=== PATIENT | female | born 1980 | race Caucasian/White ===

== ENCOUNTER 2019-04-29 21:12 | Emergency (ER) | payer OTHER, SELFPAY ==
[2019-04-29] VITALS (16 sets, daily range): BP systolic 138–155; BP diastolic 86–117; PULSE 100; RESP 18–20; TEMP 36.8; O2SAT 94–98; BMI 36.2
--- NOTE | 2019-04-29 21:35 | ED_ITS ---
Entered by Jacklyn Wright, acting as scribe for Rosaura Mcbride MD Apr 29, 2019 21:12 HPI - Abdominal Pain General: Chief Complaint: Abdominal Pain Stated Complaint: ABD PAIN Time Seen by Provider: 04/29/19 21:34 Source: patient and RN notes reviewed Mode of arrival: ambulatory Limitations: no limitations History of Present Illness: HPI narrative: hurting worse this evening burning with urination for a little while , no fever, HTN, MD elicited complaint: abdominal pain Pertinent past history: past UTI Onset (ago): day(s) (2) Pain Consistency: constant Location: Suprapubic Severity: severe Quality: cramping Radiation: none Migration to: no migration Exacerbating factors: movement Relieving factors: nothing Context: history of similar episodes Associated Symptoms: Reports dysuria; Denies chills, diarrhea, fever(s), nausea and vomiting Review of Systems Const: Denies: fever, chills, body aches or change in appetite Eyes: Denies: blurry vision or eye discomfort ENMT: Denies: throat pain or dental pain Card: Denies: chest pain Resp: Denies: shortness of breath GI: Reports: abdominal pain; Denies: nausea, vomiting or diarrhea : Reports: painful urination Musc: Denies: neck pain or back pain Skin/Breast: Denies: rash Neuro: Denies: headache Psych: Denies: depression Tom/Lymph: Denies: easy bruising All/Imm: Denies: hives PFSH ED PFSH: Statuses (acute, chronic, etc) shown below reflect problem list status as previously entered and may not be historically accurate Social History Smoking and tobacco status: current every day smoker Physical Exam Const: COMMON NORMALS: no apparent distress, oriented x3 and healthy appearing HENMT: COMMON NORMALS: normocephalic and head/scalp atraumatic HEAD & SCALP: normocephalic and atraumatic Eye: COMMON NORMALS: PERRL and EOMs intact bilaterally PUPIL: Yes PERRL Neck/C-Spine: COMMON NORMALS: full ROM and supple Chest: COMMONS NORMALS: inspection of chest normal and palpation of chest normal Resp: COMMON NORMALS: normal respiratory effort, no retractions, no use of accessory muscles and clear to auscultation bilaterally AUSCULTATION: clear to auscultation bilaterally Cardio: COMMON NORMALS: regular rate, regular rhythm and no murmurs RATE: regular rate RHYTHM: regular rhythm GI: COMMON NORMALS: normal to inspection, nondistended, normoactive bowel sounds, soft to palpation, non-tender and no masses PALPATION: Yes soft OTHER: suprapubic tenderness Extremity: COMMON NORMALS: normal to inspection and full ROM Neuro: COMMON NORMALS: oriented x3, moves all extremities and no focal motor deficits Psych: COMMON NORMALS: mental status grossly normal, thought process normal and cooperative THOUGHT PROCESS: normal thought process Skin: COMMON NORMALS: no rashes or lesions noted and no wounds GENERAL SKIN EXAM: no rashes or lesions noted Course Vital Signs: Vital signs: Vital Signs Temperature 98.3 F 04/29/19 21:20 Pulse Rate 100 04/29/19 21:20 Respiratory Rate 18 04/29/19 23:34 Blood Pressure 149/96 04/29/19 23:00 Pulse Oximetry 94 04/29/19 22:30 MDM - Abdominal Pain MDM Narrative: Medical decision making narrative: Patient presents with abdominal pain. Her CT scan here showed ovarian cyst possibly causing her pain. She has no signs of UTI. Her white count here is normal. She is stable for discharge and is to follow-up with her primary care doctor in 3 to 5 days return if worsening. Lab Data: Labs: Lab Results 04/29/19 04/29/19 04/29/19 Range/Units 21:31 22:27 22:27 WBC 13.1 H (4.0-10.0) 10^3/ uL RBC 4.81 (4.1-5.3) 10^6/u L Hgb 14.1 (11.5-15.3) g/dL Hct 41.5 (37.0-47.0) % MCV 86.3 (81-99) fL MCH 29.3 (28.0-34.0) pg MCHC 34.0 (30.0-36.0) g/dL RDW 12.6 (12.1-15.1) % Plt Count 253 (130-400) 10^3/c mm MPV 10.1 (7.4-10.4) fL Neut % (Auto) 63.6 % Lymph % (Auto) 26.8 % [place] % (Auto) 6.4 % Eos % (Auto) 2.5 % Baso % (Auto) 0.5 % Neut # (Auto) 8.3 H (1.8-7.7) 10^3/u L Lymph # (Auto) 3.5 (0.8-4.8) 10^3/u L [place] # (Auto) 0.8 (0.2-0.9) 10^3/u L Eos # (Auto) 0.3 (0.0-0.8) 10^3/u L Baso # (Auto) 0.1 (0.0-0.1) 10^3/u L Nucleated RBC % (a uto) 0 % Nucleated RBCs # 0.0 /100WBC Sodium 137 (136-145) mmol/L Potassium 3.9 (3.5-5.1) mmol/L Chloride 101 (98-107) mmol/L Carbon Dioxide 25 (22-29) mmol/L Anion Gap 14.9 (5-19) BUN 12 (6-20) mg/dL Creatinine 0.8 (0.5-0.9) mg/dL GFR Calculation 79.9 L (90-130) mL/min Glucose 105 (74-109) mg/dL Calcium 9.7 (8.5-10.5) mg/dL Total Bilirubin 0.3 (0.15-1.2) mg/dL AST 14 (0-32) U/L ALT 12 (0-33) U/L Alkaline Phosphata se 87 (35-105) IU/L Total Protein 7.4 (6.6-8.7) g/dL Albumin 4.3 (3.5-5.2) g/dL Globulin 3.1 (1.3-4.6) g/dL Lipase 15 (13-60) U/L Urine Color Straw (Yellow) Urine Appearance Clear (CLEAR) Urine pH 7 (5-7) Ur Specific Gravit y 1.005 (1.005-1.030) Urine Protein Neg (Negative) Urine Glucose (UA) Norm (Normal) Urine Ketones Negative (Negative) Urine Occult Blood 2+ H (Negative) Urine Nitrate Negative (Negative) Urine Bilirubin Neg (NEGATIVE) Urine Urobilinogen Norm (Negative) mg/dL Ur Leukocyte Leann ase Negative (Negative) Urine RBC 0-4 H (0-2) /hpf Urine WBC 0-4 H (0-5) /hpf Ur Squamous Epith Cells 0-4 H (0-5) Urine Bacteria Trace (NONE) Imaging Data ^: CT Abd/Pel: Radiologist's impression: Ordering Provider/Ordering MD: Rosaura Mcbride MD Date of Service: 04/29/19 Procedure(s): CT abdomen pelvis w con* [id number] Accession Number(s): [id number] Report Number: [id number] PROCEDURE INFORMATION: Exam: CT Abdomen And Pelvis With Contrast Exam date and time: 04/29/2019 11:31 PM Age: 38 years old Clinical indication: Abdominal pain; Other: Groin; Prior surgery; Surgery date: 6+ months; Additional info: Abd pain TECHNIQUE: Imaging protocol: Computed tomography of the abdomen and pelvis with intravenous contrast. Total DLP: 1408.62 mGy-cm Radiation optimization: All CT scans at this facility use at least one of these dose optimization techniques: automated exposure control; mA and/or kV adjustment per patient size (includes targeted exams where dose is matched to clinical indication); or iterative reconstruction. Contrast material: OMNIPAQUE 300; Contrast volume: 95 ml; Contrast route: IV; COMPARISON: US Pelvis Female [id number] 07/05/2017 8:36 AM FINDINGS: Mediastinum: A small hiatal hernia is present. Liver: Unremarkable.No mass. Gallbladder and bile ducts: Normal. No calcified stones. No ductal dilation. Pancreas: Normal. No ductal dilation. Spleen: Calcified granulomas are noted in the spleen. A few calcified granulomas are noted in the right lung base. The spleen is otherwise unremarkable. Adrenals: Normal. No mass. Kidneys and ureters: There multiple tiny renal cortical hypodensities that are too small to characterize but statistically are consistent with cysts. There is a 1.2 cm fluid density cyst upper pole right kidney. There is no evidence of hydronephrosis. There is no evidence of renal calcifications. Stomach and bowel: Unremarkable. No obstruction. No mucosal thickening. Appendix: No evidence of appendicitis. Intraperitoneal space: Unremarkable. No free air. No significant fluid collection. Vasculature: Unremarkable.No abdominal aortic aneurysm. Lymph nodes: Unremarkable.No enlarged lymph nodes. Bladder: There is nonspecific bladder wall thickening. This may be related to incomplete distention. Reproductive: Uterus is unremarkable. The left ovary is not definitely visualized. There is a 1 cm right ovarian cyst. Bones/joints: Unremarkable. No acute fracture. Soft tissues: There is a fat-containing umbilical hernia. CT/CT abdomen pelvis w con* [id number] IMPRESSION: 1. There is a 1.2 cm fluid density cyst upper pole right kidney. No follow-up is necessary. 2. Uterus is unremarkable. The left ovary is not definitely visualized. There is a 1 cm right ovarian cyst. No follow-up is necessary. 3. No acute abnormality or inflammatory changes. COMMENT: Discharge Plan Discharge Patient Disposition: Home, Self-Care Clinical Impression: Ovarian cyst Qualifiers: Laterality: left Qualified Code(s): N83.202 - Unspecified ovarian cyst, left side Condition: Stable Prescriptions: New Counce 5-325 mg tablet 1 tab PO Q6H PRN (Reason: pain) Qty: 14 RF: 0 Discharge Orders: Discharge Order (Routine); Ordered 04/30/19 Ordered By: Rosaura Mcbride Referrals: Oksana Shelley MD [Primary Care Provider] - 4-7 days Discharge Diet: Advance as tolerated Discharge Activity: Resume usual activity Patient Instructions: Abdominal Pain (ED) Coding Level of Care Code ED Body Service Team Member for Chg Fwd The documentation recorded by the Kyle mtz Valerie R, accurately reflects the service I personally performed and the decisions made by Rae cristina Korby, MD Apr 29, 2019 21:12
[2019-04-29 21:51] LABS: Add Urine Microscopic? YES; Bilirubin Urine Neg (NEGATIVE); Blood Urine 2+ (Negative); Glucose Urine UA Norm (Normal); Ketones Urine Negative (Negative); Leukocyte Esterase Urine Negative (Negative); Nitrate Urine Negative (Negative); Protein Urine Neg (Negative); Specific Gravity, Urine 1.005 (1.005-1.030); Urine Appearance Clear (CLEAR); Urine Color Straw (Yellow); Urobilinogen Urine Norm (Negative); pH Urine 7 (5-7)
[2019-04-29 21:52] LABS: Add Urine Culture? No; Bacteria Urine TRACE; RBC Urine 0-4 /hpf (0-2); Squamous Epithelial Cell Urine 0-4 (0-5); WBC Urine 0-4 /hpf (0-5)
[2019-04-29] MEDS: morphine 4 mg/mL SDV 1 mL IVP ×2 (22:19→23:34)
[2019-04-29] MEDS: ondansetron 2 mg/ML SDV 2 mL 4 MG IVP (22:20)
[2019-04-29 22:35] LABS: Basophils # 0.1 10^3/uL (0.0-0.1); Basophils % 0.5 %; Eosinophils # 0.3 10^3/uL (0.0-0.8); Eosinophils % 2.5 %; Hematocrit 41.5 % (37.0-47.0); Hemoglobin 14.1 g/dL (11.5-15.3); Lymphocytes # 3.5 10^3/uL (0.8-4.8); Lymphocytes % 26.8 %; Mean Corpuscular Hemoglobin 29.3 pg (28.0-34.0); Mean Corpuscular Volume 86.3 fL (81-99); Mean Platelet Volume 10.1 fL (7.4-10.4); Monocytes # 0.8 10^3/uL (0.2-0.9); Monocytes % 6.4 %; Neutrophils # 8.3 10^3/uL (1.8-7.7); Neutrophils % 63.6 %; Nucleated Red Blood Cells % 0 %; Platelet Count 253 10^3/cmm (130-400); Red Blood Count 4.81 10^6/uL (4.1-5.3); Red Cell Distribution Width 12.6 % (12.1-15.1); White Blood Count 13.1 10^3/uL (4.0-10.0)
[2019-04-29 22:53] LABS: Alanine Aminotransferase 12 U/L (0-33); Albumin Level 4.3 g/dL (3.5-5.2); Alkaline Phosphatase 87 IU/L (35-105); Anion Gap 14.9 (5-19); Aspartate Amino Transferase 14 U/L (0-32); Blood Urea Nitrogen 12 mg/dL (6-20); Calcium 9.7 mg/dL (8.5-10.5); Carbon Dioxide 25 mmol/L (22-29); Chloride 101 mmol/L (98-107); Globulin 3.1 g/dL (1.3-4.6); Glomerular Filtration Rate 79.9 mL/min (90-130); Glucose 105 mg/dL (74-109); Lipase 15 U/L (13-60); Potassium 3.9 mmol/L (3.5-5.1); Sodium 137 mmol/L (136-145); Total Bilirubin 0.3 mg/dL (0.15-1.2); Total Protein 7.4 g/dL (6.6-8.7)
--- NOTE | 2019-04-29 23:15 | CTR_ITS ---
PROCEDURE INFORMATION: Exam: CT Abdomen And Pelvis With Contrast Exam date and time: 04/29/2019 11:31 PM Age: 38 years old Clinical indication: Abdominal pain; Other: Groin; Prior surgery; Surgery date: 6+ months; Additional info: Abd pain TECHNIQUE: Imaging protocol: Computed tomography of the abdomen and pelvis with intravenous contrast. Total DLP: 1408.62 mGy-cm Radiation optimization: All CT scans at this facility use at least one of these dose optimization techniques: automated exposure control; mA and/or kV adjustment per patient size (includes targeted exams where dose is matched to clinical indication); or iterative reconstruction. Contrast material: OMNIPAQUE 300; Contrast volume: 95 ml; Contrast route: IV; COMPARISON: US Pelvis Female [id number] 07/05/2017 8:36 AM FINDINGS: Mediastinum: A small hiatal hernia is present. Liver: Unremarkable.No mass. Gallbladder and bile ducts: Normal. No calcified stones. No ductal dilation. Pancreas: Normal. No ductal dilation. Spleen: Calcified granulomas are noted in the spleen. A few calcified granulomas are noted in the right lung base. The spleen is otherwise unremarkable. Adrenals: Normal. No mass. Kidneys and ureters: There multiple tiny renal cortical hypodensities that are too small to characterize but statistically are consistent with cysts. There is a 1.2 cm fluid density cyst upper pole right kidney. There is no evidence of hydronephrosis. There is no evidence of renal calcifications. Stomach and bowel: Unremarkable. No obstruction. No mucosal thickening. Appendix: No evidence of appendicitis. Intraperitoneal space: Unremarkable. No free air. No significant fluid collection. Vasculature: Unremarkable.No abdominal aortic aneurysm. Lymph nodes: Unremarkable.No enlarged lymph nodes. Bladder: There is nonspecific bladder wall thickening. This may be related to incomplete distention. Reproductive: Uterus is unremarkable. The left ovary is not definitely visualized. There is a 1 cm right ovarian cyst. Bones/joints: Unremarkable. No acute fracture. Soft tissues: There is a fat-containing umbilical hernia. CT/CT abdomen pelvis w con* [id number] IMPRESSION: 1. There is a 1.2 cm fluid density cyst upper pole right kidney. No follow-up is necessary. 2. Uterus is unremarkable. The left ovary is not definitely visualized. There is a 1 cm right ovarian cyst. No follow-up is necessary. 3. No acute abnormality or inflammatory changes. COMMENT: Consistent with the [employer]'s Incidental Findings Committee white paper (J Am Guillermo Radiol 2018): Any incidental cystic renal lesion classified in this report as too small to characterize or simple appearing is likely a benign cyst. No follow-up imaging is recommended for these lesions per consensus recommendations based on imaging criteria. Radiation Dose CTDIVOL = (mGy): DLP = 1408.62 (mGy-cm)
[2019-04-30] VITALS: BP 140/86
[2019-04-30] MEDS: iohexol 300 mg/mL 100 mL Btl IV (00:02)
[2019-04-30 00:30] VITALS: BP 114/71; O2SAT 96
[2019-04-30 01:00] VITALS: BP 121/73; O2SAT 94
[2019-04-30 01:30] VITALS: BP 121/73
[2019-04-30 01:56] VITALS: BP 134/87; PULSE 80; RESP 18; O2SAT 95
== END 2019-04-30 01:57 | disposition home or self-care (01) ==
PROVIDERS: Emergency Provider Emergency Medicine; Family Provider Family Medicine; PCP Family Medicine
DX: N83.201 Unspecified ovarian cyst, right side (principal); F17.200 Nicotine dependence, unspecified, uncomplicated; Z87.440 Personal history of urinary (tract) infections
CPT/HCPCS: 36415; 74177; 80053; 81001; 83690; 85025; 96374; 96375; 96376; 99283; J2270; J2405; Q9967

== ENCOUNTER 2020-01-15 14:37 | Outpatient (CLI) | payer OTHER, SELFPAY ==
--- NOTE | 2020-01-15 14:43 | MM_ITS ---
WS: [id number] BILATERAL DIGITAL SCREENING MAMMOGRAPHY WITH CAD CLINICAL INFORMATION: SCREENING HISTORY: Screening mammogram. Bilateral breast soreness COMPARISON: June 14, 2018 TECHNIQUE: Bilateral CC and MLO views. FINDINGS: Scattered fibroglandular densities bilaterally. No suspicious focal mass, asymmetry, calcifications, or architectural distortion. No evidence of malignancy. Several stable intramammary lymph nodes right breast MM/[place] [id number] IMPRESSION: BI-RADS: 2-Benign FOLLOW UP: 1 Year Follow-up Recommend return to annual screening mammography.
== END 2020-01-15 14:38 | disposition home or self-care (01) ==
LOC: RADSHAW 14:41
PROVIDERS: PCP Family Medicine; Visit Provider Family Medicine
DX: Z12.31 Encounter for screening mammogram for malignant neoplasm of breast (principal)
CPT/HCPCS: 77067

== ENCOUNTER → 2020-02-06 10:48 | Outpatient (BNVA) | payer OTHER, SELFPAY | PROVIDERS: PCP Family Medicine; Visit Provider Surgery | DX: Z11.59 Encounter for screening for other viral diseases (principal); K62.5 Hemorrhage of anus and rectum; K64.9 Unspecified hemorrhoids | CPT/HCPCS: 87635 ==

== ENCOUNTER 2020-02-11 05:40 | Day surgery (SDC) | payer OTHER, SELFPAY ==
[2020-02-07 11:49] VITALS: BMI 33.9
[2020-02-11] VITALS (13 sets, daily range): BP systolic 104–137; BP diastolic 68–100; PULSE 64–121; RESP 16–24; TEMP 36.6–37.3; O2SAT 92–99
[2020-02-11] MEDS: sodium chloride 0.9% 1,000 ML 30 ML IV (06:36)
--- NOTE | 2020-02-11 06:42 | W.PM.OPSUD ---
Surgery/Procedure H&P Update DATE OF PROCEDURE: February 11, 2020 DATE H&P PERFORMED: 01/23/20 H&P UPDATE INFORMATION: I have reviewed H&P completed within last 30 days, I have examined patient prior to procedure and No changes to prior documentation PREOP DIAGNOSIS: Symptomatic hemorrhoid PRIMARY INDICATION FOR PROCEDURE: The same PLANNED PROCEDURE: Operation Date: 02/11/20 07:00 Proposed Procedures p Colonoscopy [id number] K62.5 K64.9(Not Applicable) - Osorio Ingram MD s Exam Under Anesthesia(Not Applicable) - Osorio Ingram MD s Hemorroidectomy(Not Applicable) - Osorio Ingram MD
--- NOTE | 2020-02-11 06:48 | P.ANESASSM_ITS ---
Pre-Anesthetic Assessment Pre-Anesthetic Assessment: Height/Weight: Height 1.65 m Weight 92.533 kg Temp Pulse Resp BP Pulse Ox 99.2 F 81 18 135/100 96 02/11/20 06:08 02/11/20 06:08 02/11/20 06:08 02/11/20 06:08 02/11/20 06:08 Preop Diagnosis: Symptomatic hemorrhoid Proposed Procedure: Operation Date: 02/11/20 07:00 Proposed Procedures p Colonoscopy [id number] K62.5 K64.9(Not Applicable) - Osorio Ingram MD s Exam Under Anesthesia(Not Applicable) - Osorio Ingram MD s Hemorroidectomy(Not Applicable) - Osorio Ingram MD Familial anesthetic complications: PONV Was Beta Shavon taken within 24 hours: N/A Last intake: Intake Last Liquid Date 02/10/20 Last Liquid Time 00:00 Last Solid Date 02/09/20 Social: Social History: Tobacco and No alcohol Exam: Pre-Anes Outpt Exam: alert, oriented x 3, clear to auscultation bilaterally and regular rate & rhythm Airway: Cervical ROM: WNL MP: 3 Dentition: False CV/HEM: CV/HEM: HTN and Palp Metabolic: Metabolic: Thyroid Anesthetic Plan: ASA status: 2 Anesthesia: General Risk of > 500 ml blood loss (7ml/kg in children): No Meds/Allergies Current Medications: Current Medications Generic Name Dose Route Start Last Admin Trade Name Freq PRN Reason Stop Dose Admin Sodium Chloride 1,000 mls @ 30 ml s/hr 02/11/20 06:00 02/11/20 06:36 Sodium Chloride 0.9% IV 02/12/20 05:59 30 mls/hr .Q24H NAKUL Administration PFSH Anesthesia PFSH: Medical History History of Graves' disease Hypertension Hypothyroidism Migraine headache Surgical History H/O section x 3. H/O laparoscopy (~2010) S/P endometrial ablation (03/27/10) Family History Mother Hypertension Social History Smoking and tobacco status: current every day smoker cigarettes Packs smoked pe r day: 1 Alcohol intake: never Data Anesthesia Cardiac Studies: No Data to Display
[2020-02-11] MEDS: scopolamine 1.5 Patch 1 PATCH TRANSDERMA (07:00)
[2020-02-11] MEDS: piperacillin-tazobactam 3.375 GM in sodium chloride 0.9% (plus) 50 ML IV (07:04)
[2020-02-11 07:11] LABS: OR HCG Qualitative Urine Negative (Negative)
--- NOTE | 2020-02-11 08:13 | P.OP_ITS ---
Operative Report Date of procedure: February 11, 2020 Pre-op Diagnosis: Symptomatic hemorrhoid/bleeding per rectum Post-op Diagnosis: Normal colonoscopy and symptomatic right and left lower lateral hemorrhoids Procedure Done: Colonoscopy Examination under anesthesia with hemorrhoidectomy Specimens removed/disposition: Right and left lower lateral hemorrhoids Surgeon: Osorio Ingram Drop Count Associate: cable splicing technician Raymond Circulating nurse Dilcia Anesthesia: General ([facility] lead psychologist Nichole) Estimated blood loss (mL): 10 Condition: stable Disposition: same day Brief History: This is a pleasant 39 years old female patient referred to my office with history of symptomatic hemorrhoids over many years just getting worse. Patient reports that she had history of bleeding per rectum intermittently. She reports no history of colon cancer and she continues to have itching and burning whenever she goes to the restroom. Patient was offered surgery at some point at [facility] but she did not proceed. Never had a colonoscopy before. After thorough history physical examination and reviewing the chart I did family counselor the patient for colonoscopy with examination under anesthesia and possible hemorrhoidectomy. Patient agreed to proceed and informed consent per chart. Procedure: Patient was identified in the holding area, was taken to the OR placed first in supine position,IV antibiotics were given with induction time- out was done verifying the patient's name, date of , and procedure, all were in agreement. LMA was placed by the anesthesia provider, patient was placed in left lateral position.All pressure points were padded. Perianal examination showed right and left lower lateral hemorrhoids Following that a digital rectal examination was done showed no masses, the colonoscope was then introduced via the anus under direct visualization, all the way to the cecum, prep of the colon was appropriate, there were no polyps identified or masses or diverticular disease or strictures, the scope was then retrieved back ,time for withdrawal exceeded 6 minutes, gas was deflated on the way out. Retroflex was done at the end showing normal findings. Prep and drape of the perineum was done under the usual sterile technique Injection of Exparel 15 mL each side, guiding point was the ischial spine on each side located by the examining finger A lubricated self-retaining proctoscope was inserted, patient was found to have left and right lower lateral hemorrhoids mostly external. Started by introducing a wet sponge to prevent any residual colon prep from contaminating the site of the excision. Started by the left lower lateral hemorrhoid 2 hemostats were applied followed by energy device Voyant was used for excision of the hemorrhoid then 2-0 chromic catgut were used for hemostasis as a continuous suture. Attention now was deviated towards the right lower lateral hemorrhoid and same technique was used by using energy device then continuous 2-0 chromic suture was used.Copious irrigation and appropriate hemostasis was achieved.Specimens were passed to the circulating nurse. A piece of Surgicel /piece of Xeroform impregnated with lidocaine 2% jelly was placed in the anal canal, attached to 2-0 silk suture, to help retrieving it by the patient later on ABDs were applied followed by surgical pants Patient was repositioned to supine position, counts of instruments,needles and sponges were completed at the end of the procedure Patient was taken to the recovery area in stable condition I was present for the whole entire procedure Future colonoscopy is recommended to be done in 10 years for screening purposes
[2020-02-11] MEDS: dexamethasone 4 mg/mL INJ 8 MG IVP (08:43)
[2020-02-11] MEDS: fentaNYL 50 mcg/mL INJ 2mL IVP (08:48)
[2020-02-11] MEDS: sodium chloride 0.9% 1,000 ML 100 ML IV (09:16)
--- NOTE | 2020-02-11 09:17 | SUR.PHASEI ---
0822 PT TO PACU RESTLESS TRYING TO GET UP MOVING ARMS AND LEGS, PT AWAKE BUT CONFUSED PT REORIENTED REPEATEDLY 0824CRNA AT BEDSIDE ORDERS FOR VERSED NOW, 0825 PT C/O OF UNABLE TO BREATH UP IN BED TECHNICAL PLANNER AT BEDSIDE PT SPASM, PT NOW BAGGED WITH 12L O2 SEE SUGAMADEX GIVEN BY TECHNICAL PLANNER 0830 PT AWAKE NOW WITH RESP EVEN AND UNLABORED ON 8L MASK, PT TALKATIVE C/O OF PAIN TO RECTUM AND NEED TO GO TO BR. [facility] ORDERED BY DR BARAJAS SEE MEDS GIVEN
--- NOTE | 2020-02-11 09:24 | SUR.PHASEI ---
0910 PT VERY ALERT TALKATIVE WANTS SOMETHING TO DRINK SATS 96% OCC DROPS TO 90 PT ENCOURAGED TO COUGH AND SATS UP TO 96% PT TO OPS HANDOFF AT BEDSIDE.
[2020-02-11] MEDS: ibuprofen 200 mg Tablet 400 MG PO (09:43)
--- NOTE | 2020-02-11 14:32 | ANE.PACU2 ---
Inpatient post-anesthesia follow up: Airway intact: Yes Vital signs: Temperature 97.9 F Pulse Rate 64 Respiratory Rate 16 Blood Pressure 107/68 Pulse Oximetry 93 Oxygen Delivery Me thod Room Air Oxygen Flow Rate 8 Fraction of Inspir ed Oxygen Hydration adequate: Yes Nausea and vomiting: No Pain level: 2 Mental status: Baseline
== END 2020-02-11 10:47 | disposition home or self-care (01) ==
PROVIDERS: Anesthesiology; PCP Family Medicine; Visit Provider Surgery
PROC: 0DJD8ZZ Inspection of Lower Intestinal Tract, Via Natural or Artificial Opening Endoscopic (ICD-10-PCS; CPT 45378; principal; 2020-02-11 07:00)
PROC: (CPT 45378; 2020-02-11 07:00)
PROC: (CPT 45378; 2020-02-11 07:00)
DX: K64.4 Residual hemorrhoidal skin tags (principal); K62.5 Hemorrhage of anus and rectum; Z12.11 Encounter for screening for malignant neoplasm of colon; I10 Essential (primary) hypertension; E03.9 Hypothyroidism, unspecified; F17.210 Nicotine dependence, cigarettes, uncomplicated
CPT/HCPCS: 45378; 46250; 12345; 81025; 84703; 88304; C9290; J0131; J1100; J2250; J2370; J2405; J2543; J2704; J2710; J3010; J3490; J7030

== ENCOUNTER → 2020-02-26 15:06 | Outpatient (BNVA) | payer OTHER, SELFPAY | PROVIDERS: PCP Family Medicine; Visit Provider Nurse Practitioner Family | DX: Z11.59 Encounter for screening for other viral diseases (principal); Z20.828 Contact with and (suspected) exposure to other viral communicable diseases; J06.9 Acute upper respiratory infection, unspecified | CPT/HCPCS: 87635 ==

== ENCOUNTER 2020-12-06 09:47 | Emergency (ER) | payer OTHER, SELFPAY ==
[2020-12-06 09:59] VITALS: BP 154/98; PULSE 92; RESP 18; TEMP 36.8; O2SAT 96; BMI 35.5
[2020-12-06 10:13] VITALS: BP 154/98; PULSE 98; RESP 18; O2SAT 98
--- NOTE | 2020-12-06 10:30 | XRR_ITS ---
PROCEDURE INFORMATION: Exam: XR Chest Exam date and time: 12/06/2020 10:30 AM Age: 40 years old Clinical indication: Cough TECHNIQUE: Imaging protocol: XR of the chest. Views: 1 view. COMPARISON: CR Chest 2 views* [id number] 09/14/2018 1:25 PM FINDINGS: Lungs: No pulmonary consolidation. There is a nodular density overlying the right upper lobe that measures 0.9 cm. Pleural spaces: No pleural effusion.; No pneumothorax. Heart/Mediastinum: The cardiac silhouette is unchanged. No gross evidence of pneumomediastinum. Bones/joints: No gross fracture. XR/XR chest 1V portable [id number] IMPRESSION: Nodular density in the right upper lobe measuring 0.[address] chest to better characterize.
[2020-12-06 11:47] VITALS: BP 131/88; PULSE 84; RESP 18; O2SAT 92
[2020-12-06 12:00] LABS: Basophils # 0.1 10^3/uL (0.0-0.1); Basophils % 0.8 %; Eosinophils % 0.5 %; Hematocrit 46.4 % (37.0-47.0); Hemoglobin 15.5 g/dL (11.5-15.3); Lymphocytes # 2.1 10^3/uL (0.8-4.8); Lymphocytes % 27.1 %; Mean Corpuscular HGB Conc 33.4 g/dL (30.0-36.0); Mean Corpuscular Hemoglobin 29.8 pg (28.0-34.0); Mean Corpuscular Volume 89.2 fl (81-99); Mean Platelet Volume 10.2 fL (7.4-10.4); Monocytes # 0.6 10^3/uL (0.2-0.9); Monocytes % 7.1 %; Neutrophils # 5.08 10^3/uL (1.8-7.7); Neutrophils % 64.1 %; Nucleated Red Blood Cells % 0 %; Platelet Count 246 10^3/cmm (130-400); Red Cell Distribution Width 13.5 % (12.1-15.1); White Blood Count 7.9 10^3/uL (4.0-10.0)
--- NOTE | 2020-12-06 12:18 | W.ED.GENADLT ---
HPI - General Adult General: Chief complaint: General Medical Stated complaint: congestion x 1 mo,swollen throat, thyroid problems Time Seen by Provider: 12/06/20 09:54 History of Present Illness: HPI narrative: This patient is a 40 year old female with cough, sore throat, sinus and ear congestion for a month. She has been to her PCP and has been on 2 courses of augmentin and is now on levaquin. She felt better on the Augmentin but her symptoms returned. She had a neg COVID test but has not had an xray. She has been taking mucinex for symptoms. She has not taken a decongestant. She came in today due to her persistent symptoms. Onset (ago): month(s) (1) Associated symptoms: Reports cough and malaise; Deny chest pain, dyspnea, fevers/chills, headache(s), nausea, rash or vomiting Treatments prior to arrival: NSAID and cold therapy Review of Systems General: Reports: 10 or more systems reviewed and unremarkable except in HPI and below Const: Reports: malaise Eyes: Denies: change in vision ENMT: Reports: throat pain, nasal congestion and sinus pain; Denies: odynophagia Card: Denies: chest pain Resp: Reports: productive cough and chest congestion; Denies: dyspnea or non-productive cough GI: Denies: abdominal pain, nausea or vomiting : Denies: flank pain or difficulty voiding Musc: Reports: other (myalgias); Denies: neck pain or back pain Skin/Breast: Denies: rash Neuro: Denies: headache(s), numbness in extremities or weakness in extremities Tom/Lymph: Denies: easy bruising or easy bleeding PFS ED PFSH: Medical History History of Graves' disease Hypertension Hypothyroidism Migraine headache Smoking Surgical History H/O section x 3. H/O laparoscopy (~2010) S/P endometrial ablation (03/27/10) Family History Mother Hypertension Social History Smoking and tobacco status: current every day smoker cigarettes Packs smoked per day: 1 Alcohol intake: never Physical Exam Const: COMMON NORMALS: no acute distress, patient oriented x3, no limitations and alert GENERAL APPEARANCE: cooperative and comfortable HENMT: COMMON NORMALS: Normal external nose present HEAD & SCALP: normal to inspection FACE & SINUS: normal facial exam NOSE: Normal external nose present TYMPANIC MEMBRANE: other (no erythema, fluid present) MOUTH: Normal oral and palatal mucosa present, lip normal and tongue normal Eye: GENERAL EYE: appearance normal, both eyes and all related structures Neck/C-Spine: COMMON NORMALS: supple, no meningeal signs and no JVD Chest: COMMONS NORMALS: normal inspection of the chest Resp: COMMON NORMALS: normal respiratory effort, No use of accessory muscles and clear to auscultation bilaterally AUSCULTATION: clear to auscultation bilaterally Cardio: COMMON NORMALS: no JVD, regular rate, regular rhythm and No murmurs present (Cardio) RATE: regular rate RHYTHM: regular rhythm GI: COMMON NORMALS: Normal to inspection, nondistended, normoactive bowel sounds present, Soft to palpation and non-tender INSPECTION: Yes normal to inspection AUSCULTATION: Yes normoactive bowel sounds PALPATION: Yes Soft to palpation Back/Pelvis: COMMON NORMALS: thoracic and lumbar spine normal to inspection Extremity: COMMON NORMALS: normal to inspection Neuro: COMMON NORMALS: patient oriented x3, moves all extremities, no focal motor deficits and no sensory deficits noted SENSORIUM/ORIENTATION: Yes alert MENINGEAL SIGNS: Yes no meningeal signs Psych: COMMON NORMALS: mental status grossly normal, cooperative and normal affect Skin: COMMON NORMALS: no rashes or lesions noted and turgor normal GENERAL SKIN EXAM: no rashes or lesions noted and turgor normal Course ED course: CXR neg for pneumonia. Labs normal. She will continue her antibiotic - she is on flonase and will continue that. We also discussed use of a decongestant orally or afrin nasal spray to help with her sinus congestion and ear pain. She will also continue tylenol for her body aches. Continue outpatient follow up. Vital Signs: Vital signs: Vital Signs Temperature 98.3 F 12/06/20 09:59 Pulse Rate 88 12/06/20 12:36 Respiratory Rate 18 12/06/20 12:36 Blood Pressure 140/89 12/06/20 12:36 Pulse Oximetry 95 12/06/20 12:36 MDM - General Adult MDM Narrative: Medical decision making narrative: pneumonia, bronchitis, viral URI Lab Data: Labs: Lab Results 12/06/20 12/06/20 Range/Units 11:50 11:50 WBC 7.9 (4.0-10.0) 10^3/ uL RBC 5.20 (4.1-5.3) 10^6/u L Hgb 15.5 H (11.5-15.3) g/dL Hct 46.4 (37.0-47.0) % MCV 89.2 (81-99) fl MCH 29.8 (28.0-34.0) pg MCHC 33.4 (30.0-36.0) g/dL RDW 13.5 (12.1-15.1) % Plt Count 246 (130-400) 10^3/c mm MPV 10.2 (7.4-10.4) fL Neut % (Auto) 64.1 % Lymph % (Auto) 27.1 % [place] % (Auto) 7.1 % Eos % (Auto) 0.5 % Baso % (Auto) 0.8 % Neut # (Auto) 5.08 (1.8-7.7) 10^3/u L Lymph # (Auto) 2.1 (0.8-4.8) 10^3/u L [place] # (Auto) 0.6 (0.2-0.9) 10^3/u L Eos # (Auto) 0.0 (0.0-0.8) 10^3/u L Baso # (Auto) 0.1 (0.0-0.1) 10^3/u L Nucleated RBC % (a uto) 0 % Nucleated RBCs # 0.0 /100WBC Sodium 140 (136-145) mmol/L Potassium 4.2 (3.5-5.1) mmol/L Chloride 105 (98-107) mmol/L Carbon Dioxide 27 (22-29) mmol/L Anion Gap 12.2 (5-19) BUN 5 L (6-20) mg/dL Creatinine 0.5 (0.5-0.9) mg/dL GFR Calculation 136.0 H (90-130) mL/min Glucose 111 (65-115) mg/dL Calculated Osmolal ity 288 (285-295) mOsm/k g Calcium 8.8 (8.5-10.5) mg/dL Total Bilirubin 0.2 (0.15-1.2) mg/dL AST 12 (0-32) U/L ALT 11 (0-33) U/L Alkaline Phosphata se 81 (35-105) IU/L Total Protein 7.2 (6.6-8.7) g/dL Albumin 4.2 (3.5-5.2) g/dL Globulin 3.0 (1.3-4.6) g/dL Discharge Plan Discharge Patient Disposition: Home Clinical Impression: Bronchitis, Acute serous otitis media of both ears Condition: Stable Prescriptions: New fluticasone propionate 50 mcg/actuation spray,suspension 1 spray intranasal BID PRN (Reason: nasal congestion) Qty: 16 RF: 0 No Action fluticasone propion-salmeterol [Advair Diskus] 250-50 mcg/dose blister with device 1 inh inhalation BID Qty: 60 RF: 1 prednisone 10 mg tablet 30 mg PO DAILY 5 Days Qty: 15 RF: 0 doxycycline hyclate 100 mg tablet 100 mg PO BID 10 Days Qty: 20 RF: 0 lisinopril 20 mg tablet 20 mg PO DAILY RF: 0 albuterol sulfate [Proventil HFA] 90 mcg/actuation HFA aerosol inhaler 2 puff INHALATION Q6H PRN (Reason: sob) RF: 0 ascorbic acid (vitamin C) 2,000 mg Tablet Extended Release 2,000 mg PO DAILY RF: 0 fluconazole 150 mg tablet RF: 0 zinc 50 mg Tablet 50 mg PO DAILY RF: 0 Vitamin D3 100 mcg (4,000 unit) Capsule 100 mcg PO DAILY RF: 0 [place] 5-325 mg tablet 1 tab PO Q6H PRN (Reason: pain) Qty: 28 RF: 0 Discharge Orders: Discharge ED (Routine); Ordered 12/06/20 Ordered By: Pati Wheatley Referrals: Oksana Shelley MD [Primary Care Provider] - Discharge Diet: Usual diet Discharge Activity: Increase activity as tolerated Patient Instructions: Acute Bronchitis (ED), Opioid Safety Activity Restrictions/Additional Instructions: Continue regular medications - follow up with Dr. Shelley if not improving. You can use the fluticasone nasal spray to help with congestion in your nose and ears. You may also use afrin over the counter but only for 3 days in a row. Coding Level of Care Code ED Folder Tier for Chg Fwd Exam Comprehensive
[2020-12-06 12:22] LABS: Alanine Aminotransferase 11 U/L (0-33); Albumin Level 4.2 g/dL (3.5-5.2); Alkaline Phosphatase 81 IU/L (35-105); Anion Gap 12.2 (5-19); Aspartate Amino Transferase 12 U/L (0-32); Blood Urea Nitrogen 5 mg/dL (6-20); Calcium 8.8 mg/dL (8.5-10.5); Carbon Dioxide 27 mmol/L (22-29); Chloride 105 mmol/L (98-107); Glucose 111 mg/dL (65-115); Osmolality Calculated 288 mOsm/kg (285-295); Potassium 4.2 mmol/L (3.5-5.1); Sodium 140 mmol/L (136-145); Total Bilirubin 0.2 mg/dL (0.15-1.2); Total Protein 7.2 g/dL (6.6-8.7)
[2020-12-06 12:36] VITALS: BP 140/89; PULSE 88; RESP 18; O2SAT 95
--- NOTE | 2020-12-09 15:10 | DCPLANNER ---
manager php was left a message from Taniya Gaitan to call patient and let her know that she had a questionable area on her chest X-ray and that she needs to follow up with her primary care physician for a CT of the chest was recommended. manager php called phone number [phone] and left a voicemail for patient to return caser in phone call.
== END 2020-12-06 12:36 | disposition home or self-care (01) ==
PROVIDERS: Emergency Provider Emergency Medicine; PCP Family Medicine
DX: J40 Bronchitis, not specified as acute or chronic (principal); H65.03 Acute serous otitis media, bilateral; I10 Essential (primary) hypertension; F17.210 Nicotine dependence, cigarettes, uncomplicated
CPT/HCPCS: 71045; 80053; 85025; 99283

== ENCOUNTER 2021-01-11 06:18 | Observation (INO) | payer OTHER, SELFPAY ==
[2021-01-11] VITALS (34 sets, daily range): BP systolic 103–149; BP diastolic 69–103; PULSE 63–133; RESP 13–24; TEMP 36.6–36.8; O2SAT 91–96; BMI 33.3
--- NOTE | 2021-01-11 06:25 | XRR_ITS ---
PROCEDURE INFORMATION: Exam: XR Chest Exam date and time: 01/11/2021 6:25 AM Age: 40 years old Clinical indication: Patient HX: Heart racing this am; Additional info: Dyspnea/cough TECHNIQUE: Imaging protocol: XR of the chest. Views: 1 view. Total images: 1 COMPARISON: CR (CHEST, ) 12/06/2020 10:45 AM FINDINGS: Lungs: Unremarkable. No consolidation. Pleural spaces: Unremarkable. No pleural effusion. No pneumothorax. Heart/Mediastinum: Unremarkable. No cardiomegaly. Bones/joints: Unremarkable. XR/XR chest 1V portable [id number] IMPRESSION: No acute findings. Radiation Dose CTDIVOL = (mGy): DLP = (mGy-cm)
--- NOTE | 2021-01-11 06:26 | ECG_ITS ---
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 Measurements Intervals [place] Rate: 133 P: HI: QRS: 65 QRSD: 86 T: 51 QT: 288 QTc: 429 Interpretive Statements ATRIAL FIBRILLATION WITH RAPID VENTRICULAR RESPONSE MODERATE ST DEPRESSION [0.05+ mV ST DEPRESSION] Compared to ECG 11/19/2017 00:47:10 ST (T wave) deviation now present Sinus rhythm no longer present Sinus arrhythmia no longer present Electronically Signed On 01-11-2021 19:20:31 CDT by Gissell La M.D. [id number]
[2021-01-11] MEDS: sodium chloride 0.9% 1,000 ML 999 ML IV (06:30)
[2021-01-11] MEDS: ondansetron 2 mg/ML SDV 2 mL 4 MG IVP (06:32)
--- NOTE | 2021-01-11 06:33 | W.ED.ARRPALP ---
HPI - Arrhythmia/Palpitations General: Chief Complaint: Nausea/Vomiting/Diarrhea Stated Complaint: N/V/D AND FAST HEART RATE Time Seen by Provider: 01/11/21 06:22 History of Present Illness: HPI narrative: 40-year-old female presents to the emergency room with rapid irregular heart rate and palpitations began around 330 this morning. She is not been short of breath but she has had some abdominal discomfort and cramping. Patient has a history of smoking she states she has had palpitations for the last 16 years encounter, and went. States they previously were related to hyperthyroid condition for which she was on medication however it seems to have relented and she was taken off of the medication. She has not seen anyone for this recently. She was in the emergency room on the first of this month left without being seen the following day was seen by midlevel at a local clinic. At that time she was felt to have a mild asthma exacerbation put on a prednisone taper she is completed that is no longer taking it. She is not having any chest pain at this time. MD complaint: rapid heart beat, heart racing , palpitations and irregular heart beat Onset (ago): hour(s) Duration: constant Severity: severe Context: occurred during rest Arrhythmia history: other (History of hyperthyroidism per the patient) Associated symptoms: Reports anxiety, nausea, sense of impending doom and vomiting; Deny cough, diaphoresis, muscle cramps, paresthesias, pre-syncope, short of breath or syncope Review of Systems Const: Denies: diaphoresis ENMT: Denies: throat pain, ear or mastoid pain, nasal discharge or nasal congestion Card: Denies: syncope or pre-syncope Resp: Denies: dyspnea, productive cough or non-productive cough GI: Reports: nausea and vomiting : Denies: flank pain, difficulty voiding, dysuria, urinary frequency or urinary urgency Musc: Denies: muscle cramps Skin/Breast: Denies: rash or pruritus Psych: Reports: anxiety PFSH ED PFSH: Medical History History of Graves' disease Hypertension Hypothyroidism Migraine headache Smoking Surgical History H/O section x 3. H/O laparoscopy (~2010) S/P endometrial ablation (03/27/10) Family History Mother Hypertension Social History Smoking and tobacco status: current every day smoker cigarettes Packs smoked per day: 1 Alcohol intake: never Physical Exam Const: COMMON NORMALS: no acute distress GENERAL APPEARANCE: cooperative and comfortable ORIENTATION/CONSCIOUSNESS: Yes awake, Yes oriented to person, Yes oriented to place and Yes oriented to time HENMT: COMMON NORMALS: normocephalic, atraumatic, hearing grossly normal bilaterally and external ears normal HEAD & SCALP: normocephalic and atraumatic EXTERNAL EAR: Yes external ears normal Neck/C-Spine: COMMON NORMALS: full ROM, no lymphadenopathy, supple and no JVD Resp: COMMON NORMALS: normal respiratory effort, No retractions, No use of accessory muscles and clear to auscultation bilaterally AUSCULTATION: clear to auscultation bilaterally Cardio: COMMON NORMALS: no JVD and No murmurs present (Cardio) RATE: tachycardic RHYTHM: abnormal rhythm irregularly irregular GI: COMMON NORMALS: Soft to palpation and No hepatosplenomegaly present AUSCULTATION: Yes normoactive bowel sounds PALPATION: Yes Soft to palpation, No Tenderness to palpation present (GI), No Guarding due to palpation present (GI) and Yes No hepatosplenomegaly present Extremity: COMMON NORMALS: normal to inspection, capillary refill normal, no clubbing, cyanosis or edema, no calf tenderness and no pedal edema Neuro: SENSORIUM/ORIENTATION: Yes oriented to person, Yes oriented to place and Yes oriented to time Skin: COMMON NORMALS: no rashes or lesions noted GENERAL SKIN EXAM: no rashes or lesions noted Course Vital Signs: Vital signs: Vital Signs Temperature 98.0 F 01/11/21 07:08 Pulse Rate 92 01/11/21 07:08 Respiratory Rate 17 01/11/21 07:08 Blood Pressure 121/79 01/11/21 07:08 Pulse Oximetry 95 01/11/21 07:08 MDM - Arrhythmia/Palpitations MDM Narrative: Medical decision making narrative: Labs and imaging reviewed. Thyroid studies are negative. Patient did improve after the first bolus of Cardizem which he was started on drip however because the rate was still mildly elevated. Is also given p.o. Cardizem. Discussed with Dr. Mena. Will admit to [facility] for rate control further evaluation including echocardiogram. Lab Data: Labs: Lab Results 01/11/21 01/11/21 01/11/21 06:35 06:35 06:35 WBC 11.7 10^3/uL H 10 ^3/uL (4.0-10.0) RBC 5.30 10^6/uL 10^6 /uL (4.1-5.3) Hgb 15.6 g/dL H g/dL (11.5-15.3) Hct 47.4 % H % (37.0-47.0) MCV 89.4 fl fl (81-99) MCH 29.4 pg pg (28.0-34.0) MCHC 32.9 g/dL g/dL (30.0-36.0) RDW 13.6 % % (12.1-15.1) Plt Count 235 10^3/cmm 10^3 /cmm (130-400) MPV 10.4 fL fL (7.4-10.4) Neut % (Auto) 70.6 % % Lymph % (Auto) 19.2 % % [place] % (Auto) 7.1 % % Eos % (Auto) 2.0 % % Baso % (Auto) 0.8 % % Neut # (Auto) 8.22 10^3/uL H 10 ^3/uL (1.8-7.7) Lymph # (Auto) 2.2 10^3/uL 10^3/ uL (0.8-4.8) [place] # (Auto) 0.8 10^3/uL 10^3/ uL (0.2-0.9) Eos # (Auto) 0.2 10^3/uL 10^3/ uL (0.0-0.8) Baso # (Auto) 0.1 10^3/uL 10^3/ uL (0.0-0.1) Nucleated RBC % (a uto) 0 % % Nucleated RBCs # 0.0 /100WBC /100W BC Sodium 138 mmol/L mmol/L (136-145) Potassium 3.8 mmol/L mmol/L (3.5-5.1) Chloride 106 mmol/L mmol/L (98-107) Carbon Dioxide 20 mmol/L L mmol/ L (22-29) Anion Gap 15.8 (5-19) BUN 8 mg/dL mg/dL (6-20) Creatinine 0.5 mg/dL mg/dL (0.5-0.9) GFR Calculation 136.0 mL/min H mL /min (90-130) Glucose 135 mg/dL H mg/dL (65-115) Calculated Osmolal ity 286 mOsm/kg mOsm/ kg (285-295) Calcium 8.7 mg/dL mg/dL (8.5-10.5) Total Bilirubin 0.4 mg/dL mg/dL (0.15-1.2) AST 9 U/L U/L (0-32) ALT 10 U/L U/L (0-33) Alkaline Phosphata se 68 IU/L IU/L (35-105) Troponin T Baselin e 6 ng/L ng/L (0-10) NT-Pro-B Natriuret Pep 62 pg/mL pg/mL (0-125) Total Protein 6.7 g/dL g/dL (6.6-8.7) Albumin 3.9 g/dL g/dL (3.5-5.2) Globulin 2.8 g/dL g/dL (1.3-4.6) TSH 0.83 uIU/mL uIU/m L (0.27-4.20) Free T4 1.41 ng/dL ng/dL (0.82-1.77) Urine Color Urine Appearance Urine pH Ur Specific Gravit y Urine Protein Urine Glucose (UA) Urine Ketones Urine Blood Urine Nitrate Urine Bilirubin Urine Urobilinogen Ur Leukocyte Leann ase 01/11/21 07:12 WBC RBC Hgb Hct MCV MCH MCHC RDW Plt Count MPV Neut % (Auto) Lymph % (Auto) [place] % (Auto) Eos % (Auto) Baso % (Auto) Neut # (Auto) Lymph # (Auto) [place] # (Auto) Eos # (Auto) Baso # (Auto) Nucleated RBC % (a uto) Nucleated RBCs # Sodium Potassium Chloride Carbon Dioxide Anion Gap BUN Creatinine GFR Calculation Glucose Calculated Osmolal ity Calcium Total Bilirubin AST ALT Alkaline Phosphata se Troponin T Baselin e NT-Pro-B Natriuret Pep Total Protein Albumin Globulin TSH Free T4 Urine Color Straw (Yellow) Urine Appearance Clear (CLEAR) Urine pH 6.5 (5-7) Ur Specific Gravit y 1.000 L (1.005-1.030) Urine Protein Neg (Negative) Urine Glucose (UA) Norm (Normal) Urine Ketones Negative (Negative) Urine Blood Neg (Negative) Urine Nitrate Negative (Negative) Urine Bilirubin Neg (Negative) Urine Urobilinogen Norm mg/dL mg/dL (Negative) Ur Leukocyte Leann ase Negative (Negative) Discharge Plan Discharge Patient Disposition: Admitted As Inpatient Clinical Impression: Atrial fibrillation, new onset, History of hyperthyroidism Condition: Stable Coding Level of Care Code ED Dinkey Operator Slate for Chg Fwd Exam Comprehensive
[2021-01-11 06:41] LABS: Basophils # 0.1 10^3/uL (0.0-0.1); Basophils % 0.8 %; Eosinophils # 0.2 10^3/uL (0.0-0.8); Hematocrit 47.4 % (37.0-47.0); Hemoglobin 15.6 g/dL (11.5-15.3); Lymphocytes # 2.2 10^3/uL (0.8-4.8); Lymphocytes % 19.2 %; Mean Corpuscular HGB Conc 32.9 g/dL (30.0-36.0); Mean Corpuscular Hemoglobin 29.4 pg (28.0-34.0); Mean Corpuscular Volume 89.4 fl (81-99); Mean Platelet Volume 10.4 fL (7.4-10.4); Monocytes # 0.8 10^3/uL (0.2-0.9); Monocytes % 7.1 %; Neutrophils # 8.22 10^3/uL (1.8-7.7); Neutrophils % 70.6 %; Nucleated Red Blood Cells % 0 %; Platelet Count 235 10^3/cmm (130-400); Red Cell Distribution Width 13.6 % (12.1-15.1); White Blood Count 11.7 10^3/uL (4.0-10.0)
[2021-01-11 07:16] LABS: Add Urine Microscopic? NO; Charge for UA Resulting for Rev
[2021-01-11 07:17] LABS: Troponin(5th) Baseline 6 ng/L (0-10)
[2021-01-11 07:20] LABS: Bilirubin Urine Neg (Negative); Blood Urine Neg (Negative); Glucose Urine UA Norm (Normal); Ketones Urine Negative (Negative); Leukocyte Esterase Urine Negative (Negative); Nitrate Urine Negative (Negative); Protein Urine Neg (Negative); Urine Appearance Clear (CLEAR); Urine Color Straw (Yellow); Urobilinogen Urine Norm (Negative); pH Urine 6.5 (5-7)
[2021-01-11 07:25] LABS: Alanine Aminotransferase 10 U/L (0-33); Albumin Level 3.9 g/dL (3.5-5.2); Alkaline Phosphatase 68 IU/L (35-105); Anion Gap 15.8 (5-19); Aspartate Amino Transferase 9 U/L (0-32); Blood Urea Nitrogen 8 mg/dL (6-20); Calcium 8.7 mg/dL (8.5-10.5); Carbon Dioxide 20 mmol/L (22-29); Chloride 106 mmol/L (98-107); Free T4 Free Thyroxine 1.41 ng/dL (0.82-1.77); Globulin 2.8 g/dL (1.3-4.6); Glucose 135 mg/dL (65-115); NT Pro B Type Natriuretic Pept 62 pg/mL (0-125); Osmolality Calculated 286 mOsm/kg (285-295); Potassium 3.8 mmol/L (3.5-5.1); Sodium 138 mmol/L (136-145); Thyroid Stimulating Hormone 0.83 uIU/mL (0.27-4.20); Total Bilirubin 0.4 mg/dL (0.15-1.2); Total Protein 6.7 g/dL (6.6-8.7)
[2021-01-11] MEDS: dilTIAZem ER (24HR) 120 mg Capsule PO (07:26)
--- NOTE | 2021-01-11 07:56 | P.HP_ITS ---
Providers/Chief Complaint Primary Care Provider: Oksana Shelley MD Chief Complaint: N/V/D AND FAST HEART RATE History of Present Illness Kori Farris is a 40 year old female who shortly after waking up this morning for work around 3:57 AM had onset of nausea vomiting and diarrhea and abdominal cramping. She states after vigorous vomiting she felt significant palpitations. She then came to the emergency department. She reports the abdominal discomfort is gone but she is still having some loose stool. Less nauseated currently. In the last month or 2 she been having some respiratory issues, and tested for Covid. She has been through multiple rounds of antibiotics. She is now being evaluated for dental pain. She denies any blood in her stool or black or tarry stools. She is not vaccinated. She has not had any contacts with Covid and has not been ill with Covid that she is aware of. She has been treated for wheezing lately with prednisone and does have a history of asthma. She also uses tobacco. She has recently underwent multiple rounds of antibiotics for upper respiratory and dental symptomatology. Review of Systems General: Reports: 10 or more systems reviewed and unremarkable except in HPI and below Const: Reports: fatigue; Denies: fever(s) or chills Eyes: Denies: change in vision ENMT: Reports: ear or mastoid pain; Denies: throat pain Card: Reports: palpitations; Denies: chest pain Resp: Reports: dyspnea GI: Reports: abdominal pain, nausea, vomiting and diarrhea; Denies: hematochezia or melena : Denies: flank pain Musc: Denies: neck pain Skin/Breast: Denies: rash Neuro: Denies: headache(s) Psych: Reports: anxiety; Denies: depression Endo: Denies: polyuria Tom/Lymph: Denies: easy bruising All/Imm: Denies: urticaria Medications/Allergies Home Medications Medication Instructions Recorded Confirmed Last Taken Type lisinopril 20 mg tablet 20 mg PO DAILY 12/26/19 12/26/20 02/10/20 History zinc 50 mg PO DAILY 02/07/20 12/26/20 02/09/20 History fluticasone propionate 1 spray INTRANASAL BID PRN #16 g 12/06/20 12/26/20 Unknown Rx meclizine 25 mg tablet 25 mg PO TID PRN #30 tab 12/26/20 12/26/20 Unknown Rx ascorbic acid (vitamin C) [Vitamin 1,000 mg PO BID 01/11/21 01/11/21 01/11/21 04:30 History C] cholecalciferol (vitamin D3) 125 mcg PO QAM 01/11/21 01/11/21 01/11/21 04:30 History [Vitamin D3] Allergies Allergy/AdvReac Type Severity Reaction Status Date / Time acetaminophen [From [facility]] Allergy ADR-Itching Verified 01/11/21 08:06 azithromycin Allergy ADR-Vomitin Verified 12/26/20 10:53 g clindamycin Allergy ADR-Vomitin Verified 12/26/20 10:53 g hydrocodone [From [facility]] Allergy ADR-Itching Verified 01/11/21 08:06 narcotics Allergy ADR-Itching Uncoded 04/01/20 15:50 PFSH Acute PFSH: Medical History (Updated 01/11/21 @ 08:03 by Marcial Shelley MD) Asthma History of Graves' disease Hypertension Hypothyroidism Migraine headache Smoking Tobacco dependency Surgical History H/O section x 3. H/O laparoscopy (~2010) S/P endometrial ablation (03/27/10) Family History (Updated 01/11/21 @ 08:00 by Marcial Shelley MD) Mother Hypertension Other CAD (coronary artery disease) Diabetes Social History Smoking and tobacco status: current every day smoker cigarettes Packs smoked per day: 1 Alcohol intake: never Vitals/I&O/Wt Last Vital Signs Temp 98.0 F 01/11/21 07:08 Pulse 92 01/11/21 07:08 Resp 17 01/11/21 07:08 BP 121/79 01/11/21 07:08 Pulse Ox 95 01/11/21 07:08 Weight last 48 hrs Weight 87.997 kg Physical Exam Narrative: EXAM NARRATIVE: General exam is a white female, in no distress, reporting she feels tired. HEENT: Pupils equally round. Oropharynx clear. Neck is supple no lymphadenopathy or thyromegaly Cardiovascular irregular, irregular with no murmur. Tachycardic. Lungs clear no wheezing or crackles Abdomen is soft with positive bowel sounds. No obvious organomegaly exam is deferred Extremities no cyanosis clubbing or edema, cap refill brisk Skin no rash Neuro no focal deficits. Data : 01/11/21 06:35 01/11/21 06:35 Other data: LFTs normal. TSH, free T4 normal Urinalysis negative Magnesium ordered and pending A&P Assessment and plan (1) Atrial fibrillation, new onset: Patient reports significant palpitations after vigorous vomiting. She received p.o. and IV Cardizem in the emergency department Continue diltiazem drip, and reassess control and need for further medications. Initial troponin negative [id number] score low. Does not need full anticoagulation. Aspirin 325 mg daily Check echocardiogram, magnesium Consider cardiology consultation if does not convert spontaneously. Status: Acute (2) Nausea and vomiting: Associated with diarrhea. Also had some abdominal discomfort. Abdominal discomfort has gone away but diarrhea persists. Secondary to recent multiple antibiotics check C. difficile toxin, bacterial stool culture Covid testing Monitor for any worsening symptoms. Protonix p.o. Hydration Status: Acute (3) Tobacco dependency: Encourage abstinence Status: Acute (4) History of hyperthyroidism: Thyroid testing normal Status: Acute (5) Hypertension: Hold lisinopril in the face of Cardizem. Status: Acute Additional A&P Information History of asthma. Continue Advair. DuoNeb as needed. No evidence of asthma exacerbation currently. Elevated glucose, check A1c Full code Lovenox for DVT prophylaxis Attestations Medical Necessity Statement*: Will need less than 2 midnight stay for evaluation and treatment of new onset atrial fibrillation. Time Spent in Patient Care: Greater than 35 minutes Coding Level of Care Code Acute Legal Department Manager for Chg Fwd Diagnoses Atrial fibrillation, new onset I48.91 Nausea and vomiting R11.2 Tobacco dependency F17.200 History of hyperthyroidism Z86.39 Hypertension I10
[2021-01-11 08:09] LABS: Magnesium 1.9 mg/dL (1.7-2.3)
--- NOTE | 2021-01-11 08:14 | PC.PHAR ---
pt states she takes care of her own medication-pt states she took a round of penicillin vk and finished monday and states she got a refill just in case she needed it-pt states a pa wrote a rx for advair a while back and states she never filled it-pt states she finished the prednisone last week-
--- NOTE | 2021-01-11 08:26 | ECG_ITS ---
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 Measurements Intervals [place] Rate: 88 P: ID: QRS: 74 QRSD: 77 T: 58 QT: 334 QTc: 405 Interpretive Statements ATRIAL FIBRILLATION ABNORMAL RHYTHM ECG Compared to ECG 01/11/2021 06:28:12 ST (T wave) deviation no longer present Electronically Signed On 01-11-2021 19:25:45 CDT by Gissell La M.D. [id number]
[2021-01-11 08:43] LABS: Estmated Average Glucose 123; Hemoglobin A1C 5.9 % (4.0-6.0)
[2021-01-11 08:48] LABS: SARS Covid-2 Antigen Negative (Negative)
[2021-01-11 08:57] LABS: Troponin 5 2HR Delta 0 ABS# (0-10)
--- NOTE | 2021-01-11 09:31 | USCV_ITS ---
Kori Farris Age: 40 Gender: F : 1980 Exam Date: 01/11/2021 12:29 Ordering Phys: Angel Luis Chin DO Technologist: [place]am [place] [facility] [place]: NEW ONSET AFIB BP: 127 / 78 HR: 78 Rhythm: Other Technical Quality: Adequate MEASUREMENTS (Male / Female) Normal Values 2D ECHO LV Diastolic Diameter PLAX 3.9 cm 4.2 - 5.9 / 3.9 - 5.3 cm LV Systolic Diameter PLAX 2.7 cm IVS Diastolic Thickness 1.2 cm 0.6 - 1.0 / 0.6 - 0.9 cm IVS Systolic Thickness 1.2 cm LVPW Diastolic Thickness 1.2 cm 0.6 - 1.0 / 0.6 - 0.9 cm LVPW Systolic Thickness 1.3 cm LVOT Diameter 2.0 cm LV Ejection Fraction 2D Teich 56.8 % LV Ejection Fraction MOD 2C 56.6 % LV Ejection Fraction 2C AL 56.1 % LA Diameter 3.6 cm LA Width 4.0 cm LA Height 5.0 cm RA Width 4.2 cm RA Height 4.5 cm M-MODE Aortic Annulus Diameter 2.9 cm LA Ao Ratio MM 1.3 DOPPLER AV Peak Velocity 137.0 cm/s LVOT Peak Velocity 104.0 cm/s AV Area Cont Eq vti 2.1 cm squared AV Area Cont Eq pk 2.4 cm squared MV Area PHT 5.0 cm squared Mitral E to A Ratio 2.7 MV E' Velocity 82.5 cm/s Mitral E to MV E' Ratio 9.5 Mitral E to LV E' Lateral Ratio 9.1 Mitral E to LV E' Septal Ratio 9.9 TR Peak Velocity 103.0 cm/s TR Peak Gradient 4.2 mmHg TV Peak E Velocity 105.0 cm/s Right Atrial Pressure 3.0 mmHg Pulmonary Artery Systolic Pressu 7.2 mmHg FINDINGS Left Ventricle Normal left ventricular size, systolic function and wall thickness, with no regional wall motion abnormalities. Normal left ventricular wall thickness. In the presence of atrial fibrillation diastolic function cannot be assessed accurately. Left ventricular ejection fraction is estimated at 56 %. Right Ventricle The right ventricle is normal in size and function. Right Atrium The right atrium is normal in size. Left Atrium The left atrium is normal in size. Mitral Valve Structurally normal mitral valve without significant stenosis or prolapse. There is no mitral regurgitation. Aortic Valve Structurally normal aortic valve without significant sclerosis or stenosis. There is no aortic regurgitation. Tricuspid Valve Structurally normal tricuspid valve without significant stenosis or regurgitation. Pulmonary artery systolic pressure is normal. Pulmonic Valve Structurally normal pulmonic valve without significant stenosis. There is no pulmonic regurgitation. Pericardium Normal pericardium without effusion. Aorta Normal ascending aorta dimension. CONCLUSIONS 1-Normal left ventricular size, systolic function and wall thickness, with no regional wall motion abnormalities. Normal left ventricular wall thickness. In the presence of atrial fibrillation diastolic function cannot be assessed accurately. Left ventricular ejection fraction is estimated at 56 %. 2-There is no pericardial effusion. 3-No significant valve abnormalities. 4-Pulmonary artery systolic pressure is within normal limits. 5-Right atrial pressure is around 5 mm of mercury. 6-There are no prior echocardiogram studies to compare. Johnny Fay MD (Electronically Signed) Final Date: 11 January 2021 19:53 S
--- NOTE | 2021-01-11 09:53 | PC.CHAP ---
Pastoral Care Encounter/Spiritual Assessment Type of Contact [] Declined time study observer visit [] Patient/Family/Request visit [] Outpatient visit [] Follow-up visit [] Physician referral [] Code/Alert [x] Routine visit [] Staff referral [] Actively dying [] Patient sleeping [] Family support [] [] Out of room [] Palliative care [] [] Receiving care in room [] Pre-surgical visit [] Trauma [] Long length of stay [x] ICU visit [] Other: Relational/Emotional Strength [] Patient feels connected with others/family/visitors/staff [] Distress [] Loneliness/isolation [] Abandonment Spirituality of Patient [] Person of Grecia [] Attends Protestant of their Grecia [] Believes in Prayer [] Reads Bible or Scientologist materials [] There are Spiritual issues to be addressed Sales And Marketing Engineer Interventions [x] Prayer [] Active listening [] Non-anxious presence [] Spiritual/emotional support [] Crisis/trauma care [] Spiritual counseling [] Bereavement support [] Provided bereavement packet [] Provided Bible/devotional materials [] Provided toy/stuffed animal, coloring book to patient or family member [] Provided Communion [] Anointing/[place] [] Salvation [x] Completed spiritual assessment [] Other: Impact on Illness or Injury [] Angry [] Fearful [] Anxious [] Often cries [] Exhaustion [] Unable to work [] Unable to attend jainism [] Unable to walk/stand [] Unable to read [] Unable to drive [] Unable to eat/drink [] Unable to sleep [] Unable to be with family [] Patient intubated [] Other: Summary Time spent with patient
[2021-01-11] MEDS: sodium chloride 0.9% 1,000 ML 75 ML IV (10:09)
[2021-01-11] MEDS: enoxaparin 40 mg/0.4 mL Syringe SUBCUT (10:09)
[2021-01-11] MEDS: pantoprazole DR 40 mg Tablet PO ×2 (10:10→17:01)
[2021-01-11] MEDS: aspirin 325 mg EC Tablet PO (10:10)
--- NOTE | 2021-01-11 12:26 | ECG_ITS ---
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 Measurements Intervals [place] Rate: 77 P: [place]: QRS: 45 QRSD: 89 T: 44 QT: 357 QTc: 406 Interpretive Statements ATRIAL FIBRILLATION ABNORMAL RHYTHM ECG Compared to ECG 01/11/2021 08:46:52 No significant changes Electronically Signed On 01-11-2021 19:24:59 CDT by Gissell La M.D. [email or web address] CRMselect specialty hospitalTagmore Solutionsuniversity hospitals st. [facility].WriteOn/store/OM/[id number]
[2021-01-11] MEDS: digoxin 250 mcg/ml INJ 2 mL 500 MCG IVP (13:00)
[2021-01-11 13:55] LABS: Troponin 5 6HR Delta 0 ng/L (0-12)
--- NOTE | 2021-01-11 16:56 | PC.NURSE ---
Report called to EMPERATRIZ Escobar on CSU. Pt to be transferred to room 102 via wheelchair, belongings sent with patient.
--- NOTE | 2021-01-11 17:34 | PC.NURSE ---
Spoke with physician. Pt is in SR, will discontinue cardizem gtt and start her on Cardizem PO 120mg daily.
--- NOTE | 2021-01-11 17:45 | PC.NURSE ---
Report received from PAGE Chaves. Pt arrived via w/c to room. Pt was oriented to room and call huizar. No pain present, no complaints at this time. Nurse will continue to monitor.
[2021-01-11] MEDS: enoxaparin 100 mg/mL Syringe 90 MG SUBCUT (21:00)
[2021-01-12] VITALS (7 sets, daily range): BP systolic 121–142; BP diastolic 77–80; PULSE 65–80; RESP 15–19; TEMP 36.6; O2SAT 92
[2021-01-12 04:06] LABS: Basophils # 0.1 10^3/uL (0.0-0.1); Basophils % 0.7 %; Eosinophils # 0.2 10^3/uL (0.0-0.8); Eosinophils % 2.2 %; Hematocrit 41.4 % (37.0-47.0); Hemoglobin 13.5 g/dL (11.5-15.3); Lymphocytes # 2.6 10^3/uL (0.8-4.8); Lymphocytes % 27.3 %; Mean Corpuscular HGB Conc 32.6 g/dL (30.0-36.0); Mean Corpuscular Hemoglobin 29.9 pg (28.0-34.0); Mean Corpuscular Volume 91.6 fl (81-99); Mean Platelet Volume 10.7 fL (7.4-10.4); Monocytes # 0.8 10^3/uL (0.2-0.9); Monocytes % 8.1 %; Neutrophils # 5.73 10^3/uL (1.8-7.7); Neutrophils % 61.3 %; Nucleated Red Blood Cells % 0 %; Platelet Count 202 10^3/cmm (130-400); Red Blood Count 4.52 10^6/uL (4.1-5.3); White Blood Count 9.4 10^3/uL (4.0-10.0)
[2021-01-12] MEDS: sodium chloride 0.9% 1,000 ML 75 ML IV (04:10)
[2021-01-12 04:43] LABS: Alanine Aminotransferase 8 U/L (0-33); Albumin Level 3.4 g/dL (3.5-5.2); Alkaline Phosphatase 56 IU/L (35-105); Anion Gap 13.9 (5-19); Aspartate Amino Transferase 7 U/L (0-32); Blood Urea Nitrogen 9 mg/dL (6-20); Calcium 8.3 mg/dL (8.5-10.5); Carbon Dioxide 23 mmol/L (22-29); Chloride 108 mmol/L (98-107); Globulin 2.5 g/dL (1.3-4.6); Glucose 106 mg/dL (65-115); Osmolality Calculated 291 mOsm/kg (285-295); Potassium 3.9 mmol/L (3.5-5.1); Sodium 141 mmol/L (136-145); Total Bilirubin 0.5 mg/dL (0.15-1.2); Total Protein 5.9 g/dL (6.6-8.7)
--- NOTE | 2021-01-12 07:43 | PM.DCS ---
Discharge Providers Date of Admission: 01/11/21 08:29 Date of Discharge: January 12, 2021 Attending Provider at Admission: Marcial Shelley MD Attending Provider at Discharge: Marcial Shelley MD Primary Care Provider: Oksana Shelley MD Diagnoses at Discharge Discharge Diagnosis (1) Atrial fibrillation, new onset: Status: Acute (2) Nausea and vomiting: Status: Acute (3) Tobacco dependency: Status: Acute (4) History of hyperthyroidism: Status: Acute (5) Hypertension: Status: Acute Reason for Visit Reason for Visit: N/V/D AND FAST HEART RATE Hospital Course Hospital Course Kori is a 40-year-old white female who presented to the hospital with nausea, vomiting and diarrhea. She also had significant palpitations and racing heart rate. She was found to be in atrial fibrillation with rapid ventricular rate. In the emergency department a Cardizem drip was started, and she received a p.o. dose of Cardizem. After my evaluation I also gave her 500 mcg of digoxin later in the day. TSH, free T4, electrolytes including magnesium were all normal. Echocardiogram was normal. Ejection fraction was preserved, no valvular dysfunction, no wall motion abnormalities, no obvious atrial enlargement. Troponins were all negative. Rapid Covid was negative. During the night the patient converted to sinus rhythm, and the following day was essentially asymptomatic. Covid PCR was pending, along with C. difficile toxin but with resolution of symptoms it was thought these could be followed up as an outpatient. I discussed with the patient to remain in quarantine until coronavirus testing results returned. I discussed anticoagulation with her, both with likelihood that this was a short duration of atrial fibrillation and her only significant additional risk was hypertension long-term anticoagulation was not started. She was placed on an aspirin. She will follow-up with cardiology in 2 weeks. An event monitor was ordered. She will also follow-up with her primary care provider. She will continue Cardizem CD, instead of lisinopril secondary to her history of hypertension and atrial fibrillation. Beta-blockers were not chosen secondary to her history of asthma. Physical Exam Narrative: EXAM NARRATIVE: General exam no apparent distress Neck is supple Cardiovascular regular in rhythm without murmur Lungs clear Abdomen is soft with positive bowel sounds Extremities no cyanosis clubbing or edema Discharge Data Data Completed and Pending: Completed Studies During Hospitalization Category Date Time Status XR chest 1V ivan ble [id number] Stat Exams 10/18/21 06:25 Completed CV. echo complete * [id number] Routine Ultrasound 01/11/21 09:31 Completed Pending at discharge Category Date Time Status Clostridioides Di fficile PCR Routin e Lab 01/12/21 06:30 Received Coronavirus Test [facility] ne Lab 01/11/21 08:12 Received Enteric Bacterial Panel by PCR Rout ine Lab 01/11/21 08:05 Uncollected Labs from last 24 hours 01/12/21 01/12/21 01/11/21 03:45 03:45 13:10 WBC 9.4 RBC 4.52 Hgb 13.5 Hct 41.4 MCV 91.6 MCH 29.9 MCHC 32.6 RDW 14.0 Plt Count 202 MPV 10.7 H Neut % (Auto) 61.3 Lymph % (Auto) 27.3 [place] % (Auto) 8.1 Eos % (Auto) 2.2 Baso % (Auto) 0.7 Neut # (Auto) 5.73 Lymph # (Auto) 2.6 [place] # (Auto) 0.8 Eos # (Auto) 0.2 Baso # (Auto) 0.1 Nucleated RBC % (a uto) 0 Nucleated RBCs # 0.0 Sodium 141 Potassium 3.9 Chloride 108 H Carbon Dioxide 23 Anion Gap 13.9 BUN 9 Creatinine 0.5 GFR Calculation 136.0 H Glucose 106 Estimat Average Gl ucose Hemoglobin A1c Calculated Osmolal ity 291 Calcium 8.3 L Magnesium Total Bilirubin 0.5 AST 7 ALT 8 Alkaline Phosphata se 56 Troponin T 120 Min brian Delta Troponin T Troponin T Hi Sens 6Hr 6.00 Troponin T Hi Sens 6Hr Delta 0 Total Protein 5.9 L Albumin 3.4 L Globulin 2.5 Nasal/Oral COVID-1 9 PCR SARS-CoV-2 Ag (Rap id) 01/11/21 01/11/21 01/11/21 08:24 08:13 08:12 WBC RBC Hgb Hct MCV MCH MCHC RDW Plt Count MPV Neut % (Auto) Lymph % (Auto) [place] % (Auto) Eos % (Auto) Baso % (Auto) Neut # (Auto) Lymph # (Auto) [place] # (Auto) Eos # (Auto) Baso # (Auto) Nucleated RBC % (a uto) Nucleated RBCs # Sodium Potassium Chloride Carbon Dioxide Anion Gap BUN Creatinine GFR Calculation Glucose Estimat Average Gl ucose Hemoglobin A1c Calculated Osmolal ity Calcium Magnesium Total Bilirubin AST ALT Alkaline Phosphata se Troponin T 120 Min brian 6.00 Delta Troponin T 0 Troponin T Hi Sens 6Hr Troponin T Hi Sens 6Hr Delta Total Protein Albumin Globulin Nasal/Oral COVID-1 9 PCR Pending SARS-CoV-2 Ag (Rap id) Negative 01/11/21 01/11/21 06:35 06:35 WBC RBC Hgb Hct MCV MCH MCHC RDW Plt Count MPV Neut % (Auto) Lymph % (Auto) [place] % (Auto) Eos % (Auto) Baso % (Auto) Neut # (Auto) Lymph # (Auto) [place] # (Auto) Eos # (Auto) Baso # (Auto) Nucleated RBC % (a uto) Nucleated RBCs # Sodium Potassium Chloride Carbon Dioxide Anion Gap BUN Creatinine GFR Calculation Glucose Estimat Average Gl ucose 123 Hemoglobin A1c 5.9 Calculated Osmolal ity Calcium Magnesium 1.9 Total Bilirubin AST ALT Alkaline Phosphata se Troponin T 120 Min brian Delta Troponin T Troponin T Hi Sens 6Hr Troponin T Hi Sens 6Hr Delta Total Protein Albumin Globulin Nasal/Oral COVID-1 9 PCR SARS-CoV-2 Ag (Rap id) Vitals: Last Vital Signs Temp 98 F 01/12/21 03:26 Pulse 80 01/12/21 06:00 Resp 15 01/12/21 03:26 BP 121/77 01/12/21 03:26 Pulse Ox 92 01/12/21 03:26 Discharge Plan Discharge Patient Disposition: Home Condition: Stable Prescriptions: New aspirin 325 mg Tablet,Delayed Release (Dr/Ec) 325 mg PO DAILY Qty: 30 RF: 0 pantoprazole [Protonix] 40 mg tablet,delayed release (DR/EC) 40 mg PO DAILY Qty: 30 RF: 0 diltiazem HCl 120 mg Capsule,Extended Release 24hr 120 mg PO DAILY Qty: 30 RF: 0 Continued meclizine 25 mg tablet 25 mg PO TID PRN (Reason: dizziness) Qty: 30 RF: 0 fluticasone propionate 50 mcg/actuation spray,suspension 1 spray intranasal BID PRN (Reason: nasal congestion) Qty: 16 RF: 0 Vitamin C 1,000 mg Tablet 1,000 mg PO BID RF: 0 Vitamin D3 125 mcg (5,000 unit) Tablet 125 mcg PO QAM RF: 0 albuterol sulfate 2.5 mg /3 mL (0.083 %) solution for nebulization 2.5 mg inhalation Q6H PRN (Reason: Shortness Of Breath) RF: 0 penicillin V potassium 500 mg tablet 500 mg PO Q6H RF: 0 levalbuterol tartrate 45 mcg/actuation HFA aerosol inhaler 1 puff INHALATION Q4H PRN (Reason: Wheezing) RF: 0 zinc 50 mg Tablet 50 mg PO QAM RF: 0 Discontinued lisinopril 20 mg tablet 20 mg PO DAILY@21 RF: 0 ibuprofen 200 mg Tablet 400 mg PO Q4H PRN (Reason: Pain) RF: 0 Discharge Orders: Discharge Order (Routine); Ordered 01/12/21 Ordered By: Marcial Shelley Other Ambulatory Orders: CA cardiac event monitor (Routine) Timeframe: 2 Days Facility: [facility] - Location: Cardiac Diagnostic Laboratory Ordered By: Marcial Shelley Referrals: Oksana Shelley MD [Primary Care Provider] - 4-7 days Johnny Fay MD [Physician] - 2 weeks (Initially follow-up with Evette Gramajo nurse practitioner if needed.) Discharge Diet: Regular Discharge Activity: Increase activity as tolerated Patient Instructions: Opioid Safety Activity Restrictions/Additional Instructions: Take all medicine as prescribed. Return for any concerns. Discharge Attestations Time Spent in Discharge Care*: greater than 30 min Quality Metrics Clinical Quality Measures During this hospital stay, did patient experience: None Coding Level of Care Code Acute Chg FW DC note Diagnoses Atrial fibrillation, new onset I48.91 Nausea and vomiting R11.2 Tobacco dependency F17.200 History of hyperthyroidism Z86.39 Hypertension I10
--- NOTE | 2021-01-12 07:49 | PC.NURSE ---
Pt sitting up in bed eating breakfast and talking to staff. Pts resp even and non-labored no distress noted on RA. pt HR 70 bpm running NSR. IV patent no redness or swelling noted at the present time. Pt had no c/o pain or discomfort at the present time. No needs voiced at this time. Call light in reach. Will cont to monitor.
--- NOTE | 2021-01-12 07:52 | ECG_ITS ---
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 ruby memorial hospital.EcoSwarm/store/OM/[id number]/[id number]
[2021-01-12] MEDS: enoxaparin 100 mg/mL Syringe 90 MG SUBCUT (09:10)
[2021-01-12] MEDS: dilTIAZem ER (24HR) 120 mg Capsule PO (09:11)
[2021-01-12] MEDS: aspirin 325 mg EC Tablet PO (09:11)
[2021-01-12] MEDS: pantoprazole DR 40 mg Tablet PO (09:11)
--- NOTE | 2021-01-12 11:20 | PC.NURSE ---
Pt discharged home. Pts IV removed no redness or swelling noted. Pts discharge instructions given along with prescriptions and follow up appointments. Pt had no c/o pain or discomfort at the time of discharge.
[2021-01-12 14:17] LABS: Coronavirus Test Green County Not Detected
== END 2021-01-12 11:26 | disposition home or self-care (01) ==
LOC: ER 07:01 → ICU 08:30 → CSU 17:12
PROVIDERS: Admitting Provider Internal Medicine; Emergency Provider Family Medicine; PCP Family Medicine; Visit Provider Internal Medicine
DX: I48.91 Unspecified atrial fibrillation (principal); R11.2 Nausea with vomiting, unspecified; F17.210 Nicotine dependence, cigarettes, uncomplicated; Z86.39 Personal history of other endocrine, nutritional and metabolic disease; I10 Essential (primary) hypertension; Z82.49 Family history of ischemic heart disease and other diseases of the circulatory system; Z83.3 Family history of diabetes mellitus
CPT/HCPCS: 36415; 71045; 80053; 81003; 83036; 83735; 83880; 84439; 84443; 84484; 85025; 87426; 87506; 87635; 93005; 93306; 96365; 96372; 96375; 99291; 99292; G0378; J1160; J1650; J2405; J3490; J7030

== ENCOUNTER 2021-02-15 05:42 | Emergency (ER) | payer OTHER, SELFPAY ==
[2021-02-15 05:46] VITALS: BP 142/88; PULSE 79; RESP 20; TEMP 36.8; O2SAT 97; BMI 33.3
--- NOTE | 2021-02-15 06:02 | ED_ITS ---
HPI - Ear Problem General: Chief complaint: Ear Stated complaint: Ear and Neck Hurt\Nausea Time Seen by Provider: 02/15/21 06:00 History of Present Illness: HPI Narrative: 40-year-old female presents to the emergency room with complaint of bilateral ear pain and neck pain. She has had some nausea but no vomiting. She denies any fever sweats or chills. She states she has had this ear pain off and on since October of this year. (X3 months). Her primary care doctor is seen her several times she has been through several different courses of antibiotics. She also has had palpitations and is being evaluated for arrhythmia and she has a Holter monitor on currently. She denies any chest pain or shortness of breath she says the discomfort radiates from her ear down her neck and into her shoulder and left arm at times. There is not any particular new or different symptoms other than an increase in intensity of the discomfort. MD Complaint: ear pain Location: bilateral Duration: constant Severity: mild Relieving factors: nothing Exacerbating factors: nothing Discharge from ear: no Associated symptoms: Reports ear or mastoid pain and neck pain; Denies external ear pain, fever(s), headache(s), hearing loss, rhinorrhea or tinnitus Treatment prior to arrival: none Review of Systems Const: Denies: fever(s) ENMT: Reports: ear or mastoid pain; Denies: tinnitus Card: Denies: chest pain, edema, dyspnea on exertion or orthopnea Resp: Denies: dyspnea, productive cough or non-productive cough GI: Denies: abdominal pain, nausea, vomiting, hematemesis, coffee ground emesis, diarrhea, constipation, bloating, hematochezia or melena : Denies: flank pain, difficulty voiding, dysuria, urinary frequency or urinary urgency Musc: Reports: neck pain Skin/Breast: Denies: rash or pruritus Neuro: Denies: headache(s) PFSH ED PFSH: Medical History Asthma History of Graves' disease History of hyperthyroidism Hypertension Hypothyroidism Migraine headache Smoking Tobacco dependency Surgical History H/O section x 3. H/O laparoscopy (~2010) S/P endometrial ablation (03/27/10) Family History Mother Hypertension Other CAD (coronary artery disease) Diabetes Social History Smoking and tobacco status: current every day smoker cigarettes Packs smoked per day: 1 Alcohol intake: never Physical Exam Const: COMMON NORMALS: no acute distress GENERAL APPEARANCE: cooperative and comfortable ORIENTATION/CONSCIOUSNESS: Yes awake, Yes oriented to person, Yes oriented to place and Yes oriented to time HENMT: COMMON NORMALS: normocephalic, atraumatic, hearing grossly normal bilaterally, external ears normal, EAC's normal, TM's normal bilaterally, Normal nasal mucous membranes and turbinates present, moist oral mucous membranes and oropharynx normal HEAD & SCALP: normocephalic and atraumatic NOSE: Normal nasal mucous membranes and turbinates present EXTERNAL EAR: Yes external ears normal EXTERNAL AUDITORY CANAL: EAC's normal TYMPANIC MEMBRANE: TM's normal bilaterally Eye: COMMON NORMALS: Equal, round and reactive pupils present, EOMs intact bilaterally, conjunctivae normal and no scleral icterus CONJUNCTIVA: Yes conjunctivae normal PUPIL: Yes Equal, round and reactive pupils present Neck/C-Spine: COMMON NORMALS: full ROM, no lymphadenopathy, supple and no JVD Lymph: LYMPHATIC: no lymphadenopathy noted and no lymphedema noted Resp: COMMON NORMALS: normal respiratory effort, No retractions, No use of accessory muscles and clear to auscultation bilaterally AUSCULTATION: clear to auscultation bilaterally Cardio: COMMON NORMALS: no JVD, regular rate, regular rhythm and No murmurs present (Cardio) RATE: regular rate RHYTHM: regular rhythm Extremity: COMMON NORMALS: normal to inspection, capillary refill normal, no clubbing, cyanosis or edema, no calf tenderness and no pedal edema Neuro: SENSORIUM/ORIENTATION: Yes oriented to person, Yes oriented to place and Yes oriented to time Skin: COMMON NORMALS: no rashes or lesions noted GENERAL SKIN EXAM: no rashes or lesions noted Course Vital Signs: Vital signs: Vital Signs Temperature 98.3 F 02/15/21 05:46 Pulse Rate 69 02/15/21 06:18 Respiratory Rate 18 02/15/21 06:18 Blood Pressure 145/94 02/15/21 06:18 Pulse Oximetry 96 02/15/21 06:18 MDM - Ear MDM Narrative: Medical decision making narrative: No significant findings on exam. EKG unremarkable. Refer to ENT. EKG Data^: EKG 1: Attestation: I personally reviewed and interpreted this EKG as follows: EKG interpretation date: 02/15/21 EKG interpretation time: 06:20 Interpretation: Normal sinus rhythm rate of 67 normal MA interval normal QT interval. Discharge Plan Discharge Patient Disposition: Home Clinical Impression: Otalgia Condition: Stable Prescriptions: New Zofran 4 mg tablet 4 mg PO Q6H PRN (Reason: nausea and vomiting) Qty: 15 RF: 0 No Action Protonix 40 mg tablet,delayed release (DR/EC) 40 mg PO DAILY PRNRF: 0 metoprolol succinate 25 mg tablet extended release 24 hr 12.5 mg PO DAILY Qty: 45 RF: 3 fluticasone propionate 50 mcg/actuation spray,suspension 1 spray intranasal BID PRN (Reason: nasal congestion) Qty: 16 RF: 0 Vitamin D3 125 mcg (5,000 unit) Tablet 125 mcg PO QAM RF: 0 albuterol sulfate 2.5 mg /3 mL (0.083 %) solution for nebulization 2.5 mg inhalation Q6H PRN (Reason: Shortness Of Breath) RF: 0 levalbuterol tartrate 45 mcg/actuation HFA aerosol inhaler 1 puff INHALATION Q4H PRN (Reason: Wheezing) RF: 0 aspirin 325 mg Tablet,Delayed Release (Dr/Ec) 325 mg PO DAILY Qty: 30 RF: 0 diltiazem HCl 120 mg Capsule,Extended Release 24hr 120 mg PO DAILY Qty: 30 RF: 0 Vitamin C 1,000 mg tablet 1,000 mg PO BID RF: 0 zinc 50 mg Tablet 50 mg PO QAM RF: 0 Discharge Orders: Discharge ED (Routine); Ordered 02/15/21 Ordered By: Angel Luis Chin Discharge Diet: Usual diet Discharge Activity: Resume usual activity Patient Instructions: Opioid Safety Activity Restrictions/Additional Instructions: hairmasters manager will make arrangements for you to see ENT. Coding Level of Care Code ED Rn Liaison for Juliocesarg Fwd Exam Comprehensive
--- NOTE | 2021-02-15 06:17 | ECG_ITS ---
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 Measurements Intervals [place] Rate: 67 P: 40 MT: 179 QRS: 60 QRSD: 96 T: 56 QT: 389 QTc: 411 Interpretive Statements SINUS RHYTHM Compared to ECG 01/12/2021 08:38:59 Sinus arrhythmia no longer present First degree AV block no longer present Electronically Signed On 02-15-2021 20:00:43 RETIREMENT VILLAGE MANAGER by Julieta Ornelas M.D. [email or web address] [email or web address] memorial hospitalPetta/store/OM/[id number]
[2021-02-15 06:18] VITALS: BP 145/94; PULSE 69; RESP 18; O2SAT 96
[2021-02-15] MEDS: ondansetron 4 MG Tablet PO (06:26)
--- NOTE | 2021-02-15 11:36 | DCPLANNER ---
international account manager had message to schedule a follow up appointment for patient with Dr. Solomon. international account manager emailed patients information to both Oksana and Trisha at [facility] General Surgery / ENT Clinic. Patients information will be printed and reviewed. Clinic will call patient with appointment information.
--- NOTE | 2021-02-16 16:06 | DCPLANNER ---
Patient has a follow up appointment scheduled for Friday, February 26, 2021 at 9:[address] Solomon at the ENT clinic. Clinic will call patient with appointment information.
--- NOTE | 2021-03-09 06:14 | DCPLANNER ---
Patient had a follow up appointment scheduled for 02.26.21 with ENT - patient did attend appointment.
== END 2021-02-15 06:30 | disposition home or self-care (01) ==
PROVIDERS: Emergency Provider Family Medicine
DX: H92.03 Otalgia, bilateral (principal); I10 Essential (primary) hypertension; F17.210 Nicotine dependence, cigarettes, uncomplicated
CPT/HCPCS: 93005; 99283; Q0162

== ENCOUNTER 2021-03-07 14:36 | Emergency (ER) | payer OTHER, SELFPAY ==
--- NOTE | 2021-03-07 03:22 | XRR_ITS ---
PROCEDURE INFORMATION: Exam: XR Chest Exam date and time: 03/07/2021 3:22 AM Age: 40 years old Clinical indication: Pain; Chest pressure; Additional info: Cp TECHNIQUE: Imaging protocol: XR of the chest. Views: 1 view. Total images: 1 COMPARISON: CR XR chest 1V portable [id number] 01/11/2021 6:53 AM FINDINGS: Lungs: No visible active interstitial or alveolar airspace disease. Pleural spaces: Unremarkable. No pleural effusion. No pneumothorax. Heart/Mediastinum: Cardiac structures and configuration within normal limits. Bones/joints: Unremarkable. XR/XR chest 1V portable [id number] IMPRESSION: Nonacute.
[2021-03-07 15:33] VITALS: BP 157/102; PULSE 77; RESP 18; TEMP 36.9; O2SAT 96; BMI 31.6
--- NOTE | 2021-03-07 17:45 | ECG_ITS ---
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 Measurements Intervals [place] Rate: 71 P: 34 MT: 171 QRS: 44 QRSD: 94 T: 46 QT: 388 QTc: 424 Interpretive Statements SINUS RHYTHM INTERPRETATION BASED ON A DEFAULT AGE OF 39 YEARS Compared to ECG 02/15/2021 06:20:44 No significant changes Electronically Signed On 03-07-2021 20:23:30 BODY ROLLING MACHINE TENDER by Julieta Ornelas M.D. [email or web address] Koketacovington county hospitalCollexpoohiohealth marion general hospitalThe ADEX/store/NU/[id number] [email or web address]
[2021-03-07 18:49] LABS: Basophils # 0.1 10^3/uL (0.0-0.1); Eosinophils # 0.3 10^3/uL (0.0-0.8); Eosinophils % 2.5 %; Hematocrit 47.8 % (37.0-47.0); Hemoglobin 15.9 g/dL (11.5-15.3); Lymphocytes # 2.8 10^3/uL (0.8-4.8); Lymphocytes % 26.7 %; Mean Corpuscular HGB Conc 33.3 g/dL (30.0-36.0); Mean Corpuscular Hemoglobin 29.4 pg (28.0-34.0); Mean Corpuscular Volume 88.5 fl (81-99); Mean Platelet Volume 10.2 fL (7.4-10.4); Monocytes # 0.7 10^3/uL (0.2-0.9); Monocytes % 6.3 %; Neutrophils # 6.68 10^3/uL (1.8-7.7); Neutrophils % 63.2 %; Nucleated Red Blood Cells % 0 %; Platelet Count 266 10^3/cmm (130-400); Red Cell Distribution Width 13.3 % (12.1-15.1); White Blood Count 10.6 10^3/uL (4.0-10.0)
[2021-03-07 19:08] LABS: Alanine Aminotransferase 10 U/L (0-33); Albumin Level 4.3 g/dL (3.5-5.2); Alkaline Phosphatase 68 IU/L (35-105); Anion Gap 18.6 (5-19); Aspartate Amino Transferase 10 U/L (0-32); Blood Urea Nitrogen 8 mg/dL (6-20); Calcium 8.5 mg/dL (8.5-10.5); Carbon Dioxide 21 mmol/L (22-29); Chloride 105 mmol/L (98-107); Globulin 2.5 g/dL (1.3-4.6); Glomerular Filtration Rate 175.9 mL/min (90-130); Glucose 110 mg/dL (65-115); Osmolality Calculated 291 mOsm/kg (285-295); Potassium 3.6 mmol/L (3.5-5.1); Sodium 141 mmol/L (136-145); Total Bilirubin 0.2 mg/dL (0.15-1.2); Total Protein 6.8 g/dL (6.6-8.7)
--- NOTE | 2021-03-07 20:06 | USR_ITS ---
PROCEDURE INFORMATION: Exam: US Abdomen, Limited; Right Upper Quadrant Exam date and time: 03/07/2021 8:06 PM Age: 40 years old Clinical indication: Abdominal pain; Additional info: Ruq pain TECHNIQUE: Imaging protocol: US abdomen. Real time ultrasound with image documentation. Limited exam focused on the right upper quadrant. Total images: 73 COMPARISON: US Abdomen* [id number] 07/05/2017 8:05 AM FINDINGS: Liver: Mild diffuse fatty infiltration of the liver. No visible hepatic mass or cystic structure. Gallbladder: Potential very tiny gallbladder polyp versus nonshadowing gallstone. Gallbladder otherwise unremarkable. No gallbladder wall thickening or pericholecystic fluid. Common bile duct: Normal. No stones. No dilation. Common bile duct averages under 5 mm. Pancreas: Visualized pancreas is unremarkable. No visible pancreatic ductal ectasia. Right kidney: Normal renal parenchyma echogenicity. No mass. No hydronephrosis. Dimensions of the kidney approximately 11 cm x 3.9 cm x 4.8 cm. Aorta: The abdominal aorta, where visualized, is nonaneurysmal. Portal venous: Antegrade portal venous flow. Inferior vena cava: Patent IVC. US/US gall bladder [id number] IMPRESSION: 1. Potential very tiny gallbladder polyp versus nonshadowing gallstone. 2. Mild diffuse fatty infiltration of the liver. 3. No sonographic evidence of acute right upper quadrant pathology.
--- NOTE | 2021-03-07 20:06 | CTR_ITS ---
PROCEDURE INFORMATION: Exam: CT Head Without Contrast Exam date and time: 03/07/2021 8:06 PM Age: 40 years old Clinical indication: Dizziness TECHNIQUE: Imaging protocol: Computed tomography of the head without contrast. Total images: 205 Radiation optimization: All CT scans at this facility use at least one of these dose optimization techniques: automated exposure control; mA and/or kV adjustment per patient size (includes targeted exams where dose is matched to clinical indication); or iterative reconstruction. COMPARISON: MRI Head w/wo* [id number] 04/14/2016 2:51 PM RADIATION DOSE METRICS: Total DLP (mGy-cm): 887.5 FINDINGS: Brain: No evidence of active or acute intracranial pathologic process, hemorrhage, or trauma. No visible evidence of diffuse cerebral edema or generalized demyelination. No mass effect. No midline shift. No hyperdense MCA or insular ribbon sign. Cerebral ventricles: No ventriculomegaly. Paranasal sinuses: No visible active paranasal sinus disease. Mastoid air cells: Visualized mastoid air cells are well aerated. Bones/joints: Unremarkable. No acute fracture. Soft tissues: Unremarkable. CT/CT head wo con* [id number] IMPRESSION: No evidence of active or acute intracranial pathologic process, hemorrhage, or trauma.
[2021-03-07 20:14] VITALS: BP 150/103; PULSE 70; RESP 16; O2SAT 96
[2021-03-07 20:41] LABS: Troponin(5th) Baseline 6 ng/L (0-10)
[2021-03-07 20:52] LABS: Lipase 18 U/L (13-60); Thyroid Stimulating Hormone 0.54 uIU/mL (0.27-4.20)
[2021-03-07 21:32] LABS: Troponin 5 2HR Delta 0 ABS# (0-10)
[2021-03-07 21:34] LABS: Add Urine Microscopic? YES; Bacteria Urine 2+ /hpf; Bilirubin Urine Neg (Negative); Blood Urine 2+ (Negative); Glucose Urine UA Norm (Normal); Ketones Urine Negative (Negative); Leukocyte Esterase Urine Negative (Negative); Nitrate Urine Negative (Negative); Protein Urine Neg (Negative); RBC Urine 0-4 /hpf (0-2); Squamous Epithelial Cell Urine 0-4 /hpf (0-5); Urine Appearance Clear (CLEAR); Urine Color Yellow (Yellow); Urobilinogen Urine 1 mg/dL (Negative); pH Urine 5 (5-7)
[2021-03-07 21:35] LABS: Add Urine Culture? Yes
--- NOTE | 2021-03-07 21:53 | W.ED.GENADLT ---
HPI - General Adult General: Chief complaint: General Medical Stated complaint: NECK AND SHOULDER PAIN Time Seen by Provider: 03/07/21 19:42 History of Present Illness: HPI narrative: 40-year-old female with a history of atrial fibrillation. She presents with epigastric and shoulder discomfort with some nausea, and tingling in her bilateral hands she notes the epigastric discomfort has been there since October. She supposedly has a referral set up for outpatient gallbladder ultrasound. She states her hands have been tingling for the last 7 days or so. She has noticed an increase in the shoulder pain as well Onset (ago): day(s) Location: chest, abdomen, left, right and upper extremity Radiation: back and neck Severity: moderate Quality: aching Pain Consistency: intermittent Relieving factors: none Exacerbating factors: eating Associated symptoms: Reports chest pain, diaphoresis and nausea; Deny confusion, cough, dyspnea, fevers/chills, short of breath or vomiting Review of Systems Const: Reports: diaphoresis Card: Reports: chest pain Resp: Denies: dyspnea GI: Reports: nausea; Denies: vomiting Neuro: Denies: confusion PFSH ED PFSH: Medical History Asthma History of Graves' disease History of hyperthyroidism Hypertension Hypothyroidism Migraine headache Smoking Tobacco dependency Surgical History H/O section x 3. H/O laparoscopy (~2010) S/P endometrial ablation (03/27/10) Family History Mother Hypertension Other CAD (coronary artery disease) Diabetes Social History Smoking and tobacco status: current every day smoker cigarettes Packs smoked per day: 1 Alcohol intake: never Physical Exam Const: COMMON NORMALS: no acute distress, patient oriented x3 and alert Chest: COMMONS NORMALS: normal inspection of the chest CHEST: No tenderness Resp: COMMON NORMALS: normal respiratory effort, No use of accessory muscles and clear to auscultation bilaterally AUSCULTATION: clear to auscultation bilaterally Cardio: COMMON NORMALS: regular rate and regular rhythm RATE: regular rate RHYTHM: regular rhythm GI: COMMON NORMALS: Normal to inspection, nondistended, normoactive bowel sounds present and Soft to palpation PALPATION: Yes Soft to palpation Neuro: COMMON NORMALS: patient oriented x3 SENSORIUM/ORIENTATION: Yes alert Course Vital Signs: Vital signs: Vital Signs Temperature 98.4 F 03/07/21 15:33 Pulse Rate 66 03/07/21 22:40 Respiratory Rate 16 03/07/21 22:40 Blood Pressure 128/80 03/07/21 22:40 Pulse Oximetry 95 03/07/21 22:40 MDM - General Adult MDM Narrative: Medical decision making narrative: 40-year-old female with a history of atrial fibrillation. She presents with epigastric/right upper quadrant, chest discomfort radiating to her shoulders bilaterally. Her EKG shows a normal sinus rhythm with normal intervals and normal axis. No ST changes. She is not in atrial fibrillation currently. Her white blood cell count is 10.6 with a normal differential. Her hemoglobin is 16. Bicarbonate level is 21. No elevation in her liver enzymes. Chest x-ray is negative. Her lipase is normal. Her gallbladder ultrasound is negative for any evidence of cholecystitis she was counseled on the negative diagnostic work-up. She will follow-up Lab Data: Labs: Lab Results 03/07/21 03/07/21 03/07/21 18:44 18:44 18:44 WBC 10.6 10^3/uL H 10 ^3/uL (4.0-10.0) RBC 5.40 10^6/uL H 10 ^6/uL (4.1-5.3) Hgb 15.9 g/dL H g/dL (11.5-15.3) Hct 47.8 % H % (37.0-47.0) MCV 88.5 fl fl (81-99) MCH 29.4 pg pg (28.0-34.0) MCHC 33.3 g/dL g/dL (30.0-36.0) RDW 13.3 % % (12.1-15.1) Plt Count 266 10^3/cmm 10^3 /cmm (130-400) MPV 10.2 fL fL (7.4-10.4) Neut % (Auto) 63.2 % % Lymph % (Auto) 26.7 % % [place] % (Auto) 6.3 % % Eos % (Auto) 2.5 % % Baso % (Auto) 1.0 % % Neut # (Auto) 6.68 10^3/uL 10^3 /uL (1.8-7.7) Lymph # (Auto) 2.8 10^3/uL 10^3/ uL (0.8-4.8) [place] # (Auto) 0.7 10^3/uL 10^3/ uL (0.2-0.9) Eos # (Auto) 0.3 10^3/uL 10^3/ uL (0.0-0.8) Baso # (Auto) 0.1 10^3/uL 10^3/ uL (0.0-0.1) Nucleated RBC % (a uto) 0 % % Nucleated RBCs # 0.0 /100WBC /100W BC Sodium 141 mmol/L mmol/L (136-145) Potassium 3.6 mmol/L mmol/L (3.5-5.1) Chloride 105 mmol/L mmol/L (98-107) Carbon Dioxide 21 mmol/L L mmol/ L (22-29) Anion Gap 18.6 (5-19) BUN 8 mg/dL mg/dL (6-20) Creatinine 0.4 mg/dL L mg/dL (0.5-0.9) GFR Calculation 175.9 mL/min H mL /min (90-130) Glucose 110 mg/dL mg/dL (65-115) Calculated Osmolal ity 291 mOsm/kg mOsm/ kg (285-295) Calcium 8.5 mg/dL mg/dL (8.5-10.5) Total Bilirubin 0.2 mg/dL mg/dL (0.15-1.2) AST 10 U/L U/L (0-32) ALT 10 U/L U/L (0-33) Alkaline Phosphata se 68 IU/L IU/L (35-105) Troponin T Baselin e Troponin T 120 Min [place] Troponin T Total Protein 6.8 g/dL g/dL (6.6-8.7) Albumin 4.3 g/dL g/dL (3.5-5.2) Globulin 2.5 g/dL g/dL (1.3-4.6) Lipase 18 U/L U/L (13-60) TSH 0.54 uIU/mL uIU/m L (0.27-4.20) Urine Color Urine Appearance Urine pH Ur Specific Gravit y Urine Protein Urine Glucose (UA) Urine Ketones Urine Blood Urine Nitrate Urine Bilirubin Urine Urobilinogen Ur Leukocyte Leann ase Urine RBC Urine WBC Ur Squamous Epith Cells Amorphous Sediment Urine Bacteria 03/07/21 03/07/21 03/07/21 18:44 20:54 21:05 WBC RBC Hgb Hct MCV MCH MCHC RDW Plt Count MPV Neut % (Auto) Lymph % (Auto) [place] % (Auto) Eos % (Auto) Baso % (Auto) Neut # (Auto) Lymph # (Auto) [place] # (Auto) Eos # (Auto) Baso # (Auto) Nucleated RBC % (a uto) Nucleated RBCs # Sodium Potassium Chloride Carbon Dioxide Anion Gap BUN Creatinine GFR Calculation Glucose Calculated Osmolal ity Calcium Total Bilirubin AST ALT Alkaline Phosphata se Troponin T Baselin e 6 ng/L ng/L (0-10) Troponin T 120 Min [place] 6.00 ng/L ng/L (0-10) [place] Troponin T 0 ABS# ABS# (0-10) Total Protein Albumin Globulin Lipase TSH Urine Color Yellow (Yellow) Urine Appearance Clear (CLEAR) Urine pH 5 (5-7) Ur Specific Gravit y 1.020 (1.005-1.030) Urine Protein Neg (Negative) Urine Glucose (UA) Norm (Normal) Urine Ketones Negative (Negative) Urine Blood 2+ H (Negative) Urine Nitrate Negative (Negative) Urine Bilirubin Neg (Negative) Urine Urobilinogen 1 mg/dL H mg/dL (Negative) Ur Leukocyte Leann ase Negative (Negative) Urine RBC 0-4 /hpf H /hpf (0-2) Urine WBC 5-10 /hpf H /hpf (0-5) Ur Squamous Epith Cells 0-4 /hpf H /hpf (0-5) Amorphous Sediment Not Reportable Urine Bacteria 2+ /hpf H /hpf (NONE) Discharge Plan Discharge Patient Disposition: Home Clinical Impression: Dizziness Abdominal pain Qualifiers: Abdominal location: epigastric Qualified Code(s): R10.13 - Epigastric pain Condition: Stable Prescriptions: New Carafate 1 gram tablet 1 g PO Q6H 28 Days Qty: 112 RF: 0 No Action Protonix 40 mg tablet,delayed release (DR/EC) 40 mg PO DAILY PRNRF: 0 metoprolol succinate 25 mg tablet extended release 24 hr 12.5 mg PO DAILY Qty: 45 RF: 3 fluticasone propionate 50 mcg/actuation spray,suspension 1 spray intranasal BID PRN (Reason: nasal congestion) Qty: 16 RF: 0 Vitamin D3 125 mcg (5,000 unit) Tablet 125 mcg PO QAM RF: 0 albuterol sulfate 2.5 mg /3 mL (0.083 %) solution for nebulization 2.5 mg inhalation Q6H PRN (Reason: Shortness Of Breath) RF: 0 levalbuterol tartrate 45 mcg/actuation HFA aerosol inhaler 1 puff INHALATION Q4H PRN (Reason: Wheezing) RF: 0 aspirin 325 mg Tablet,Delayed Release (Dr/Ec) 325 mg PO DAILY Qty: 30 RF: 0 diltiazem HCl 120 mg Capsule,Extended Release 24hr 120 mg PO DAILY Qty: 30 RF: 0 Vitamin C 1,000 mg tablet 1,000 mg PO BID RF: 0 Zofran 4 mg tablet 4 mg PO Q6H PRN (Reason: nausea and vomiting) Qty: 15 RF: 0 zinc 50 mg Tablet 50 mg PO QAM RF: 0 Discharge Orders: Discharge ED (Routine); Ordered 03/07/21 Ordered By: Dillon Steiner Referrals: Oksana Shelley MD [Primary Care Provider] - 1-3 days Patient Instructions: Abdominal Pain (ED), Dizziness (ED) Activity Restrictions/Additional Instructions: Return for worsening chest or abdominal discomfort, fever, vomiting liquids or medications, worsening dizziness, other concerns. Case management referral has been placed for you a cardiology follow-up. Coding Level of Care Code ED Loaders for Chg Fwd Exam Detailed
[2021-03-07 21:57] VITALS: BP 128/80; PULSE 66; RESP 16; O2SAT 95
[2021-03-07 22:40] VITALS: BP 128/80; PULSE 66; RESP 16; O2SAT 95
== END 2021-03-07 22:45 | disposition home or self-care (01) ==
PROVIDERS: Emergency Medicine; Emergency Provider Emergency Medicine; PCP Family Medicine
DX: R10.13 Epigastric pain (principal); R42 Dizziness and giddiness; Z79.82 Long term (current) use of aspirin; I10 Essential (primary) hypertension; F17.210 Nicotine dependence, cigarettes, uncomplicated
CPT/HCPCS: 36415; 70450; 71045; 76705; 80053; 81001; 83690; 84443; 84484; 85025; 87086; 93005; 99283

== ENCOUNTER 2021-05-16 09:21 | Emergency (ER) | payer OTHER, SELFPAY ==
[2021-05-16 09:25] VITALS: BP 145/87; PULSE 70; RESP 18; TEMP 36.5; O2SAT 97
--- NOTE | 2021-05-16 09:40 | XRR_ITS ---
PROCEDURE INFORMATION: Exam: XR Chest Exam date and time: 05/16/2021 9:40 AM Age: 40 years old Clinical indication: Cough and shortness of breath; Additional info: Short of breath, cough TECHNIQUE: Imaging protocol: XR of the chest. Views: 1 view. COMPARISON: CR XR chest 1V portable [id number] 03/07/2021 8:57 PM FINDINGS: Lungs: Unremarkable. No consolidation. Pleural spaces: Unremarkable. No pleural effusion. No pneumothorax. Heart/Mediastinum: Unremarkable. No cardiomegaly. Bones/joints: Unremarkable. XR/XR chest 1V portable [id number] IMPRESSION: No acute findings.
--- NOTE | 2021-05-16 09:41 | ED_ITS ---
HPI - SOB/Dyspnea General: Chief Complaint: Shortness of Breath/Dyspnea Stated Complaint: chest tightness, congestion, cough Time Seen by Provider: 05/16/21 09:33 Source: patient Mode of arrival: ambulatory Limitations: no limitations History of Present Illness: HPI Narrative: 40-year-old female with a history of hypothyroidism, A. fib, tobacco dependency presents to the ER today for cough, congestion, shortness of breath x1 week. Patient reports this started about a week ago and has improved slightly however she still has increased shortness of breath and chest discomfort. Patient describes the chest discomfort as being a pressure when she is lying down at night in the center of her chest. Patient reports this feels more like chest congestion from the cough. Patient reports some sinus pain and dryness in her nasal cavity. Patient reports bilateral ear pain but the left is worse than the right. Patient denies any fever or chills. Patient has not taken anything for symptoms at this time. Patient is unvaccinated and denies having had Covid recently. Onset (ago): week(s) (1) Context: recent illness Timing: constant Severity: moderate Exacerbating factors: lying flat Associated symptoms: Reports chest congestion and cough Review of Systems General: Reports: 10 or more systems reviewed and unremarkable except in HPI and below ENMT: Reports: ear or mastoid pain (bilateral but left worse than right) and nasal congestion; Denies: throat pain or nasal discharge Resp: Reports: chest congestion PFSH ED PFSH: Medical History Asthma History of Graves' disease History of hyperthyroidism Hypertension Hyperthyroidism Hypothyroidism Migraine headache Smoking Tobacco dependency Surgical History H/O section x 3. H/O laparoscopy (~2010) S/P endometrial ablation (03/27/10) Family History Mother Hypertension Other CAD (coronary artery disease) Diabetes Social History Smoking and tobacco status: current every day smoker cigarettes Packs smoked per day: 1 Alcohol intake: never Physical Exam Const: COMMON NORMALS: no acute distress, average body habitus, patient oriented x3, no limitations, alert and well nourished HENMT: COMMON NORMALS: normocephalic, atraumatic, external ears normal, TM's normal bilaterally, Normal external nose present, Normal nasal mucous membranes and turbinates present, moist oral mucous membranes and oropharynx normal HEAD & SCALP: normocephalic and atraumatic NOSE: Normal external nose present and Normal nasal mucous membranes and turbinates present EXTERNAL EAR: Yes external ears normal TYMPANIC MEMBRANE: TM's normal bilaterally Eye: COMMON NORMALS: conjunctivae normal CONJUNCTIVA: Yes conjunctivae normal Neck/C-Spine: COMMON NORMALS: full ROM GENERAL: Yes lymphadenopathy (mild anterior cervical lymphadenopathy bilaterally) Lymph: OTHER: see neck exam Chest: CHEST: No tenderness Resp: COMMON NORMALS: normal respiratory effort and No retractions AUSCULTATION: no crackles, rhonchi (bilateral) and diminished lung sounds bilateral Cardio: COMMON NORMALS: regular rate and regular rhythm RATE: regular rate RHYTHM: regular rhythm GI: COMMON NORMALS: Normal to inspection, nondistended, normoactive bowel sounds present, Soft to palpation and non-tender PALPATION: Yes Soft to palpation Extremity: COMMON NORMALS: normal to inspection and full ROM Neuro: COMMON NORMALS: patient oriented x3 SENSORIUM/ORIENTATION: Yes alert Psych: COMMON NORMALS: mental status grossly normal, Normal thought process present and cooperative THOUGHT PROCESS: Normal thought process present Skin: COMMON NORMALS: no rashes or lesions noted GENERAL SKIN EXAM: no rashes or lesions noted Course ED course: Patient has had cough and shortness of breath x1 week. This has improved slightly however patient is still experiencing shortness of breath which is concerning to her. We will do a chest x-ray, Covid swab, and lab work at this time. Patient's vitals all appear stable. Vital Signs: Vital signs: Vital Signs Temperature 97.7 F 05/16/21 09:25 Pulse Rate 68 05/16/21 11:09 Respiratory Rate 16 05/16/21 11:09 Blood Pressure 131/87 05/16/21 11:09 Pulse Oximetry 97 05/16/21 11:09 MDM - SOB/Dyspnea Medical Decision Making 40-year-old female presents to the ER today for a cough and shortness of breath x1 week. Patient reports she has had a recent illness and is actually feeling slightly better. She denies any fever or chills, denies body aches. Patient reports some mild congestion and nasal cavity dryness. Patient reports shortness of breath is worse with laying down and describes it more as a pressure in her chest or a congestion. Patient reports her cough is productive. Patient took Mucinex yesterday but otherwise has not taken anything for her symptoms. Chest x-ray is normal today. Labs appear okay. Covid is negative. Likely viral bronchitis. Will treat with Medrol Dosepak at this time. Recommended patient continue Mucinex. Increase fluid intake. Follow-up with PCP in 7 to 10 days if no improvement. Return to the ER with new or worsening symptoms. Patient verbalized understanding and is in agreement with the treatment plan. Lab Data : 05/16/21 09:49 05/16/21 09:49 Labs/Radiology: Radiology Impressions Chest X-Ray 05/16/21 09:40 IMPRESSION: No acute findings. Laboratory Results WBC 8.9 10^3/uL (4.0-10.0) 05/16/21 09:49 RBC 5.26 10^6/uL (4.1-5.3) 05/16/21 09:49 Hgb 16.1 g/dL (11.5-15.3) H 05/16/21 09:49 Hct 48.0 % (37.0-47.0) H 05/16/21 09:49 MCV 91.3 fl (81-99) 05/16/21 09:49 MCH 30.6 pg (28.0-34.0) 05/16/21 09:49 MCHC 33.5 g/dL (30.0-36.0) 05/16/21 09:49 RDW 13.5 % (12.1-15.1) 05/16/21 09:49 Plt Count 161 10^3/cmm (130-400) 05/16/21 09:49 MPV 12.1 fL (7.4-10.4) H 05/16/21 09:49 Neut % (Auto) 74.4 % 05/16/21 09:49 Lymph % (Auto) 18.7 % 05/16/21 09:49 [place] % (Auto) 5.3 % 05/16/21 09:49 Eos % (Auto) 0.7 % 05/16/21 09:49 Baso % (Auto) 0.7 % 05/16/21 09:49 Neut # (Auto) 6.67 10^3/uL (1.8-7.7) 05/16/21 09:49 Lymph # (Auto) 1.7 10^3/uL (0.8-4.8) 05/16/21 09:49 [place] # (Auto) 0.5 10^3/uL (0.2-0.9) 05/16/21 09:49 Eos # (Auto) 0.1 10^3/uL (0.0-0.8) 05/16/21 09:49 Baso # (Auto) 0.1 10^3/uL (0.0-0.1) 05/16/21 09:49 Nucleated RBC % (auto) 0 % 05/16/21 09:49 Nucleated RBCs # 0.0 /100WBC 05/16/21 09:49 Sodium 137 mmol/L (136-145) 05/16/21 09:49 Potassium 4.2 mmol/L (3.5-5.1) 05/16/21 09:49 Chloride 105 mmol/L (98-107) 05/16/21 09:49 Carbon Dioxide 21 mmol/L (22-29) L 05/16/21 09:49 Anion Gap 15.2 (5-19) 05/16/21 09:49 BUN 8 mg/dL (6-20) 05/16/21 09:49 Creatinine 0.4 mg/dL (0.5-0.9) L 05/16/21 09:49 GFR Calculation 175.9 mL/min (90-130) H 05/16/21 09:49 Glucose 134 mg/dL (65-115) H 05/16/21 09:49 Calculated Osmolality 284 mOsm/kg (285-295) L 05/16/21 09:49 Calcium 9.4 mg/dL (8.5-10.5) 05/16/21 09:49 Total Bilirubin 0.4 mg/dL (0.15-1.2) 05/16/21 09:49 AST 13 U/L (0-32) 05/16/21 09:49 ALT 9 U/L (0-33) 05/16/21 09:49 Alkaline Phosphatase 87 IU/L (35-105) 05/16/21 09:49 Total Protein 7.0 g/dL (6.6-8.7) 05/16/21 09:49 Albumin 4.5 g/dL (3.5-5.2) 05/16/21 09:49 Globulin 2.5 g/dL (1.3-4.6) 05/16/21 09:49 SARS-CoV-2 Ag (Rapid) Negative (Negative) 05/16/21 10:25 EKG Data EKG 1: I personally reviewed and interpreted this EKG as follows: EKG Interpretation Date: 05/16/21 EKG interpretation time: 09:50 Interpretation: normal sinus rhythm, no axis deviation, rate 70 bpm, FL interval 147, normal EKG Critical Care Time Critical Care Time: Critical Care Time: No Discharge Plan Discharge Patient Disposition: Home Clinical Impression: Bronchitis Condition: Stable Prescriptions: New Medrol (Eh) 4 mg tablets,dose pack See Rx Instructions PO .COMPLEX Qty: 21 0RF Rx Instructions: orally per package directions No Action CO Q 10 PO 0RF methimazole 5 mg tablet 5 mg PO DAILY 0RF metoprolol succinate 50 mg tablet extended release 24 hr 50 mg PO DAILY Qty: 90 3RF Rx Instructions: Dose Increased fluticasone propionate 50 mcg/actuation spray,suspension 1 spray intranasal BID PRN (Reason: nasal congestion) Qty: 16 0RF Rx Instructions: administer into each nostril Vitamin D3 125 mcg (5,000 unit) Tablet 125 mcg PO QAM 0RF levalbuterol tartrate 45 mcg/actuation HFA aerosol inhaler 1 puff INHALATION Q4H PRN (Reason: Wheezing) 0RF aspirin 325 mg Tablet,Delayed Release (Dr/Ec) 325 mg PO DAILY Qty: 30 0RF diltiazem HCl 120 mg Capsule,Extended Release 24hr 120 mg PO DAILY Qty: 30 0RF Vitamin C 1,000 mg tablet 1,000 mg PO BID 0RF Zofran 4 mg tablet 4 mg PO Q6H PRN (Reason: nausea and vomiting) Qty: 15 0RF zinc 50 mg Tablet 50 mg PO QAM 0RF Discharge Orders: Discharge ED (Routine); Ordered 05/16/21 Ordered By: Naina Martinez Referrals: Oksana Shelley MD [Primary Care Provider] - Discharge Diet: Usual diet Discharge Activity: Resume usual activity Patient Instructions: Opioid Safety Activity Restrictions/Additional Instructions: Take Medrol Dosepak as prescribed. Take Mucinex as discussed. Increase fluid intake. Follow-up with PCP in 7 to 10 days if no improvement. Return to the ER with new or worsening symptoms. Coding Level of Care Code ED Char Conveyor Tender for Jennifer Torrez Exam Comprehensive
--- NOTE | 2021-05-16 09:50 | ECG_ITS ---
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 Measurements Intervals Many Rate: 70 P: 57 OH: 147 QRS: 82 QRSD: 94 T: 70 QT: 383 QTc: 415 Interpretive Statements SINUS RHYTHM Compared to ECG 03/07/2021 15:29:30 No significant changes Electronically Signed On 05-17-2021 12:14:22 END WORKER by Isaiah Kaiser M.D. [id number]
[2021-05-16 09:52] VITALS: BP 128/81; PULSE 71; RESP 16; O2SAT 96
[2021-05-16 10:19] LABS: Hemoglobin 16.1 g/dL (11.5-15.3); Mean Corpuscular HGB Conc 33.5 g/dL (30.0-36.0); Mean Corpuscular Hemoglobin 30.6 pg (28.0-34.0); Mean Corpuscular Volume 91.3 fl (81-99); Mean Platelet Volume 12.1 fL (7.4-10.4); Nucleated Red Blood Cells % 0 %; Platelet Count 161 10^3/cmm (130-400); Red Blood Count 5.26 10^6/uL (4.1-5.3); Red Cell Distribution Width 13.5 % (12.1-15.1); White Blood Count 8.9 10^3/uL (4.0-10.0)
[2021-05-16 10:28] LABS: Basophils # 0.1 10^3/uL (0.0-0.1); Basophils % 0.7 %; Eosinophils # 0.1 10^3/uL (0.0-0.8); Eosinophils % 0.7 %; Lymphocytes # 1.7 10^3/uL (0.8-4.8); Lymphocytes % 18.7 %; Monocytes # 0.5 10^3/uL (0.2-0.9); Monocytes % 5.3 %; Neutrophils # 6.67 10^3/uL (1.8-7.7); Neutrophils % 74.4 %
[2021-05-16 10:53] LABS: SARS Covid-2 Antigen Negative (Negative)
[2021-05-16 11:09] VITALS: BP 131/87; PULSE 68; RESP 16; O2SAT 97
[2021-05-16 11:15] LABS: Albumin Level 4.5 g/dL (3.5-5.2); Alkaline Phosphatase 87 IU/L (35-105); Blood Urea Nitrogen 8 mg/dL (6-20); Calcium 9.4 mg/dL (8.5-10.5); Carbon Dioxide 21 mmol/L (22-29); Chloride 105 mmol/L (98-107); Globulin 2.5 g/dL (1.3-4.6); Glomerular Filtration Rate 175.9 mL/min (90-130); Glucose 134 mg/dL (65-115); Osmolality Calculated 284 mOsm/kg (285-295); Sodium 137 mmol/L (136-145); Total Bilirubin 0.4 mg/dL (0.15-1.2)
[2021-05-16 11:17] LABS: Alanine Aminotransferase 9 U/L (0-33); Anion Gap 15.2 (5-19); Aspartate Amino Transferase 13 U/L (0-32); Potassium 4.2 mmol/L (3.5-5.1)
== END 2021-05-16 11:10 | disposition home or self-care (01) ==
PROVIDERS: Emergency Provider Physician Assistant; PCP Family Medicine
DX: J40 Bronchitis, not specified as acute or chronic (principal); Z79.82 Long term (current) use of aspirin; I10 Essential (primary) hypertension; F17.210 Nicotine dependence, cigarettes, uncomplicated; Z20.822 Contact with and (suspected) exposure to COVID-19
CPT/HCPCS: 71045; 80053; 85025; 87426; 93005; 99283

== ENCOUNTER 2021-07-02 15:56 | Outpatient (CLI) | payer OTHER, SELFPAY ==
--- NOTE | 2021-07-02 16:27 | XR_ITS ---
WS: [id number] CERVICAL SPINE 7 VIEWS HISTORY: NECK pain, BILATERAL HAND PAIN COMPARISON: None available. TECHNIQUE: AP, oblique and lateral views. Lateral views in neutral, flexion and extension. Straightening of the normal cervical lordosis. On the lateral projection there is an S-shaped curvatu re of the thoracic spine. Slight reversal the normal curvature centered at C3. Mild disc space narrow ing and desiccation at C5-6. Hypertrophic small endplate osteophytes most significant from C4 to C6. No fractures. Posterior spinolaminar line is intact. There is minimal retrolisthesis of C4. The retrolisthesis increases to 2.3 mm during extension. This is very minimal. The remaining vertebral bodies demonstrate no significant instability. Very slight r etrolisthesis of C3 and C5 which is not significantly during extension. Patient's head is tilted to the LEFT. Facet joint arthritis at C5-6. Lateral masses of C1 and C2 are aligned. Odontoid is intact. No significant foraminal narrowing. XR/XR cervical spine min 6V [id number] IMPRESSION: 1. Straightening with focal reversal of curvature of the upper cervical spine. No fracture. 2. Minimal instability during extension at C4. C4 retrolisthesis to 2.3 mm marielle nt extension. 3. Small hypertrophic osteophytes at C4-C6. 4. No significant neuroforaminal stenosis.
== END 2021-07-02 15:57 | disposition home or self-care (01) ==
PROVIDERS: PCP Family Medicine; Visit Provider Nurse Practitioner Family
DX: M79.641 Pain in right hand (principal); M25.78 Osteophyte, vertebrae; M53.2X2 Spinal instabilities, cervical region
CPT/HCPCS: 72052

== ENCOUNTER 2021-07-16 11:27 | Outpatient (CLI) | payer OTHER, SELFPAY ==
--- NOTE | 2021-07-16 11:39 | XR_ITS ---
WS: [id number] Exam: XR knee LT 1-2V [id number] Date/Time of Exam: 07/16/2021 11:57 AM Reason For Exam: CHRONIC PAIN OF L KNEE No fracture or dislocation noted. Articular relationships are intact. No joint effusion. XR/XR knee LT 1-2V [id number] Impression: Normal left knee Kellgren-Myron Classification: 0
== END 2021-07-16 11:28 | disposition home or self-care (01) ==
PROVIDERS: PCP Family Medicine; Visit Provider Nurse Practitioner
DX: M25.562 Pain in left knee (principal); G89.29 Other chronic pain
CPT/HCPCS: 73560

== ENCOUNTER 2021-10-29 06:41 | Outpatient (CLI) | payer OTHER, SELFPAY ==
[2021-10-29 07:50] VITALS: BMI 29.7
--- NOTE | 2021-10-29 07:53 | ECG_ITS ---
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 Interpretive Statements NAME OF STUDY: EXERCISE SESTAMIBI STRESS TEST INDICATION: [Atypical Chest Pain] EXERCISE DATA: The patient was exercised by Shen protocol. Baseline heart rate was 68 beats per minute. Baseline blood pressure was 142/83 millimeters of mercury. Target heart rate was 151 beats per minute. Maximum heart rate achieved was 158, which was 103% of the target heart rate. Maximum blood pressure was 217/101 millimeters of mercury. Total exercise time was 7 minutes and 21 seconds. Maximum METs achieved was 10.2. The reason for ending the test was completion of the protocol. The patient complained of shortness of breath during the stress test, which then resolved at the end of the test. ELECTROCARDIOGRAM: BASELINE: Showed sinus rhythm, normal axis, no significant ST-T changes at the baseline noted. [] EXERCISE: At the peak exercise level, [] No significant ST-T changes suggestive of ischemia noted. [] RECOVERY: During the recovery period, heart rate dropped appropriately. No significant ST-T changes in the recovery suggestive of ischemia noted. [] CONCLUSION: 1. Exercise capacity is good. 2. Heart rate response was appropriate. 3. Blood pressure response was appropriate. 4. Symptoms not suggestive of ischemia. 5. Exercise stress test was negative for ischemia Electronically Signed On 11-15-2021 0:43:36 CDT by Isaiah Kaiser M.D. [id number]
--- NOTE | 2021-10-29 07:53 | NMCV_ITS ---
NM carmelo perf SPECT r/s* [id number] Kori Farris Age: 41 Gender: F : 1980 Exam Date: 10/29/2021 07:55 Ordering Phys: Evette Gramajo Technologist: NENA Gardner Exam Location: [facility] Indications: Chest pain STRESS TEST Please [facility] IMAGE PROTOCOL Rest/Stress 1 Radiopharmaceutical Dose (mCi) Administration Site Administered by Rest: Tc-99m 11.0 IV NENA Gardner Sestamibi Stress:Tc-99m 32.8 IV NENA Gardner Sestamialeksandra Rest: 29-Oct-2021 60 Discovery 630 Stress: 29-Oct-2021 30 Discovery 630 Radiopharmaceutical was injected at 87 % maximum heart rate. Images obtained in supine and prone position. SPECT RESULTS Technical Quality: Excellent Raw Data Analysis: Breast attenuation Image Corrections: No attenuation or motion correction applied Summed Stress Score: 0 Summed Rest Score: 2 Summed Difference Score: 0 PERFUSION FINDINGS SPECT images demonstrate homogeneous tracer distribution throughout the myocardium. FUNCTIONAL RESULTS (calculated via Gated SPECT) Stress Image LV EF (%): 71 Stress EDV (mL):104 TID: 1.18 Stress ESV (mL):30 FUNCTIONAL FINDINGS: There is normal left ventricular systolic function. IMPRESSIONS 1. Normal myocardial perfusion imaging with no evidence of ischemia 2. LV systolic function is normal Isaiah Kaiser MD (Electronically Signed) Final Date: 02 November 2021 17:32 S
[2021-10-29 09:11] VITALS: BP 146/94; PULSE 87
== END 2021-10-29 06:42 | disposition home or self-care (01) ==
PROVIDERS: PCP Family Medicine; Visit Provider Nurse Practitioner Family
DX: R07.89 Other chest pain (principal); R06.02 Shortness of breath
CPT/HCPCS: 78452; 93017; A9500

== ENCOUNTER 2021-11-19 08:32 | Outpatient (CLI) | payer OTHER, SELFPAY ==
--- NOTE | 2021-11-19 08:34 | MM_ITS ---
WS: [id number] Bilateral screening 3D tomosynthesis digital mammogram, 11/19/2021 Clinical Data: SCREENING Comparison: 01/15/2020, 07/09/2018, 06/14/2018. Findings: The breast parenchymal pattern shows bilateral glandular tissue. No spiculated masses or clustered ca lcifications are seen. There are no secondary signs of carcinoma. There is a mole marker on the right breast. There are small lymph nodes in both axilla. MM/[place] [id number] Impression: 1. Negative bilateral mammogram unchanged. 2. Recommend annual screening mammograms. BIRADS: 1-Negative FOLLOW UP: 1 Year Follow-up The CAD stock checker was used.
== END 2021-11-19 08:33 | disposition home or self-care (01) ==
PROVIDERS: PCP Family Medicine; Visit Provider Family Medicine
DX: Z12.31 Encounter for screening mammogram for malignant neoplasm of breast (principal)
CPT/HCPCS: 77063; 77067

== ENCOUNTER 2021-11-21 05:02 | Emergency (ER) | payer OTHER, SELFPAY ==
[2021-11-21] VITALS (8 sets, daily range): BP systolic 131–161; BP diastolic 85–115; PULSE 55–85; RESP 16–20; TEMP 36.9; O2SAT 95–97; BMI 30.7
--- NOTE | 2021-11-21 05:19 | ECG_ITS ---
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 Measurements Intervals [place] Rate: 76 P: GA: QRS: 89 QRSD: 93 T: 84 QT: 375 QTc: 424 Interpretive Statements Sinus rhythm MINIMAL ST DEPRESSION [0.025+ mV ST DEPRESSION] ABNORMAL RHYTHM ECG Compared to ECG 05/16/2021 09:45:58 ST (T wave) deviation now present Electronically Signed On 11-21-2021 8:26:15 CDT by Gabriel Rodrigues M.D. [id number]
--- NOTE | 2021-11-21 06:11 | XRR_ITS ---
PROCEDURE INFORMATION: Exam: XR Chest Exam date and time: 11/21/2021 6:37 AM Age: 41 years old Clinical indication: Cough and shortness of breath; Additional info: Cough short of breath TECHNIQUE: Imaging protocol: Radiologic exam of the chest. Views: 1 view. COMPARISON: CR XR chest 1V portable [id number] 05/16/2021 10:05 AM FINDINGS: Lungs: The lung parenchyma is clear. Pleural spaces: No pneumothorax. No pleural effusion. Heart/Mediastinum: The cardiomediastinal silhouette is within normal limits. Bones/joints: Unremarkable. XR/XR chest 1V portable [id number] IMPRESSION: No acute cardiopulmonary abnormality.
--- NOTE | 2021-11-21 06:11 | XRR_ITS ---
PROCEDURE INFORMATION: Exam: XR Abdomen Exam date and time: 11/21/2021 6:37 AM Age: 41 years old Clinical indication: Abdominal tenderness; Additional info: Diarrhea abdominal distention TECHNIQUE: Imaging protocol: Radiologic exam of the abdomen. Views: Frontal supine view of the abdomen. 1 View. COMPARISON: CT abdomen pelvis w con* [id number] 04/30/2019 12:13 AM FINDINGS: Gastrointestinal tract: No abnormally dilated air-filled bowel loops identified. Bones/joints: Unremarkable. XR/XR KUB portable [id number] IMPRESSION: Nonobstructive bowel gas pattern.
[2021-11-21] MEDS: ondansetron 2 mg/ML SDV 2 mL 4 MG IVP (06:30)
[2021-11-21] MEDS: sodium chloride 0.9% 1,000 ML 999 ML IV ×2 (06:30→07:32)
[2021-11-21 06:35] LABS: Basophils # 0.1 10^3/uL (0.0-0.1); Eosinophils # 0.4 10^3/uL (0.0-0.8); Eosinophils % 4.4 %; Hematocrit 44.9 % (37.0-47.0); Hemoglobin 14.9 g/dL (11.5-15.3); Lymphocytes # 2.4 10^3/uL (0.8-4.8); Lymphocytes % 25.9 %; Mean Corpuscular HGB Conc 33.2 g/dL (30.0-36.0); Mean Corpuscular Hemoglobin 31.2 pg (28.0-34.0); Mean Corpuscular Volume 94.1 fl (81-99); Mean Platelet Volume 10.7 fL (7.4-10.4); Monocytes # 0.8 10^3/uL (0.2-0.9); Monocytes % 9.1 %; Neutrophils # 5.41 10^3/uL (1.8-7.7); Neutrophils % 59.3 %; Nucleated Red Blood Cells % 0 %; Platelet Count 219 10^3/cmm (130-400); Red Blood Count 4.77 10^6/uL (4.1-5.3); Red Cell Distribution Width 13.1 % (12.1-15.1); White Blood Count 9.1 10^3/uL (4.0-10.0)
[2021-11-21 06:51] LABS: Alanine Aminotransferase 8 U/L (0-33); Albumin Level 3.8 g/dL (3.5-5.2); Alkaline Phosphatase 83 U/L (35-105); Anion Gap 13.3 (5-19); Aspartate Amino Transferase 9 U/L (0-32); Blood Urea Nitrogen 10 mg/dL (6-20); Calcium 8.2 mg/dL (8.5-10.5); Carbon Dioxide 23 mmol/L (22-29); Chloride 108 mmol/L (98-107); Globulin 2.5 g/dL (1.3-4.6); Glomerular Filtration Rate 135.3 mL/min (90-130); Glucose 100 mg/dL (65-115); Osmolality Calculated 291 mOsm/kg (285-295); Potassium 3.3 mmol/L (3.5-5.1); Sodium 141 mmol/L (136-145); Total Bilirubin 0.3 mg/dL (0.15-1.2); Total Protein 6.3 g/dL (6.6-8.7)
--- NOTE | 2021-11-21 07:11 | ED_ITS ---
HPI - Nausea/Vomiting/Diarrhea General: Chief complaint: Nausea/Vomiting/Diarrhea Stated complaint: Low O2\Heat rate up\Dehdrated Time Seen by Provider: 11/21/21 05:42 Source: patient and family History of Present Illness: 41-year-old female presenting with nausea vomiting and diarrhea. She does not complain of chest discomfort. She does complain of some shortness of breath and low oxygen saturation at home. She notes a mild headache as well. MD elicited complaint: vomiting and diarrhea Pertinent past history: other Onset (ago): hour(s) Associated nausea: Yes Associated abdominal pain: Yes Location of pain: Diffuse Radiation: diffuse Pain consistency: constant Severity: mild Relieving factors: none Associated symtoms: Reports bloating, dizziness, fatigue, fevers/chills, nausea, palpitations and short of breath; Denies chest pain, fecal incontinence or headache(s) Review of Systems Const: Reports: fatigue Card: Reports: palpitations; Denies: chest pain Resp: Reports: dyspnea; Denies: productive cough or non-productive cough GI: Reports: abdominal pain, nausea, vomiting, diarrhea and bloating; Denies: fecal incontinence or hematochezia Neuro: Reports: dizziness; Denies: headache(s) PFSH ED PFSH: Medical History Asthma History of Graves' disease History of hyperthyroidism Hypertension Hyperthyroidism Hypothyroidism Migraine headache Smoking Tobacco dependency Surgical History H/O section x 3. H/O laparoscopy (~2010) S/P endometrial ablation (03/27/10) Family History Mother Hypertension Other CAD (coronary artery disease) Diabetes Social History Smoking and tobacco status: current every day smoker cigarettes Packs smoked per day: 1 Alcohol intake: never Physical Exam Const: COMMON NORMALS: no acute distress GENERAL APPEARANCE: cooperative and ill appearing (mildly); not frail appearing HENMT: COMMON NORMALS: normocephalic, atraumatic and Normal external nose present HEAD & SCALP: normocephalic and atraumatic FACE & SINUS: normal facial exam and face symmetric NOSE: Normal external nose present Eye: COMMON NORMALS: Equal, round and reactive pupils present and EOMs intact bilaterally PUPIL: Yes Equal, round and reactive pupils present Neck/C-Spine: GENERAL: Yes trachea midline Chest: CHEST: Yes Symmetrical chest wall rise Resp: COMMON NORMALS: normal respiratory effort, No retractions, No use of accessory muscles and clear to auscultation bilaterally AUSCULTATION: clear to auscultation bilaterally Cardio: COMMON NORMALS: regular rate and Peripheral pulses 2+ throughout RATE: regular rate RHYTHM: abnormal rhythm irregularly irregular PERIPHERAL PULSES: Peripheral pulses 2+ throughout GI: COMMON NORMALS: Normal to inspection, nondistended, normoactive bowel sounds present and Soft to palpation PALPATION: Yes Soft to palpation Extremity: COMMON NORMALS: no pedal edema Neuro: SARATH COMA SCALE: document GCS findings [place] coma scale eye opening: Spontaneous [place] coma scale verbal response: Orientated [place] coma scale motor response: Obey commands Sarath coma scale total score: 15 SENSORY EXAM: Yes extremities (intact) Psych: COMMON NORMALS: speech normal SPEECH: Yes normal speech Skin: COMMON NORMALS: no rashes or lesions noted GENERAL SKIN EXAM: no rashes or lesions noted Course Vital Signs: Vital signs: Vital Signs Temperature 98.4 F 11/21/21 05:11 Pulse Rate 80 11/21/21 10:05 Respiratory Rate 16 11/21/21 07:26 Blood Pressure 149/85 11/21/21 10:05 Pulse Oximetry 97 11/21/21 10:05 Oxygen Delivery Me thod 11/21/21 09:00 MDM - Nausea/Vomiting/Diarrhea Medical Decision Making White blood cell count is 9. Hemoglobin 15. CRP is 3. EKG actually shows a sinus rhythm with a rate of 75, normal axis. No ST changes. Chest x-ray is negative. KUB shows a nonobstructive bowel gas pattern although there is an increase in stool load. COVID-19 antigen is pending. COVID-19 is negative. I do believe she has some degree of gastroenteritis. Heart rate is controlled. Symptoms are improved. Lab Data : 11/21/21 05:28 11/21/21 05:28 Radiology Impressions Chest X-Ray 11/21/21 06:11 IMPRESSION: No acute cardiopulmonary abnormality. KUB X-Ray 11/21/21 06:11 IMPRESSION: Nonobstructive bowel gas pattern. Laboratory Results WBC 9.1 10^3/uL (4.0-10.0) 11/21/21 05:28 RBC 4.77 10^6/uL (4.1-5.3) 11/21/21 05:28 Hgb 14.9 g/dL (11.5-15.3) 11/21/21 05:28 Hct 44.9 % (37.0-47.0) 11/21/21 05:28 MCV 94.1 fl (81-99) 11/21/21 05:28 MCH 31.2 pg (28.0-34.0) 11/21/21 05:28 MCHC 33.2 g/dL (30.0-36.0) 11/21/21 05:28 RDW 13.1 % (12.1-15.1) 11/21/21 05:28 Plt Count 219 10^3/cmm (130-400) 11/21/21 05:28 MPV 10.7 fL (7.4-10.4) H 11/21/21 05:28 Neut % (Auto) 59.3 % 11/21/21 05:28 Lymph % (Auto) 25.9 % 11/21/21 05:28 [place] % (Auto) 9.1 % 11/21/21 05:28 Eos % (Auto) 4.4 % 11/21/21 05:28 Baso % (Auto) 1.0 % 11/21/21 05:28 Neut # (Auto) 5.41 10^3/uL (1.8-7.7) 11/21/21 05:28 Lymph # (Auto) 2.4 10^3/uL (0.8-4.8) 11/21/21 05:28 [place] # (Auto) 0.8 10^3/uL (0.2-0.9) 11/21/21 05:28 Eos # (Auto) 0.4 10^3/uL (0.0-0.8) 11/21/21 05:28 Baso # (Auto) 0.1 10^3/uL (0.0-0.1) 11/21/21 05:28 Nucleated RBC % (auto) 0 % 11/21/21 05:28 Nucleated RBCs # 0.0 /100WBC 11/21/21 05:28 Sodium 141 mmol/L (136-145) 11/21/21 05:28 Potassium 3.3 mmol/L (3.5-5.1) L 11/21/21 05:28 Chloride 108 mmol/L (98-107) H 11/21/21 05:28 Carbon Dioxide 23 mmol/L (22-29) 11/21/21 05:28 Anion Gap 13.3 (5-19) 11/21/21 05:28 BUN 10 mg/dL (6-20) 11/21/21 05:28 Creatinine 0.5 mg/dL (0.5-0.9) 11/21/21 05:28 GFR Calculation 135.3 mL/min (90-130) H 11/21/21 05:28 Glucose 100 mg/dL (65-115) 11/21/21 05:28 Calculated Osmolality 291 mOsm/kg (285-295) 11/21/21 05:28 Calcium 8.2 mg/dL (8.5-10.5) L 11/21/21 05:28 Total Bilirubin 0.3 mg/dL (0.15-1.2) 11/21/21 05:28 AST 9 U/L (0-32) 11/21/21 05:28 ALT 8 U/L (0-33) 11/21/21 05:28 Alkaline Phosphatase 83 U/L (35-105) 11/21/21 05:28 C-Reactive Protein 3.0 mg/L (0.0-4.9) 11/21/21 05:28 Total Protein 6.3 g/dL (6.6-8.7) L 11/21/21 05:28 Albumin 3.8 g/dL (3.5-5.2) 11/21/21 05:28 Globulin 2.5 g/dL (1.3-4.6) 11/21/21 05:28 Urine Color Yellow (Yellow) 11/21/21 06:50 Urine Appearance Clear (CLEAR) 11/21/21 06:50 Urine pH 6.5 (5-7) 11/21/21 06:50 Ur Specific [place] 1.005 (1.005-1.030) 11/21/21 06:50 Urine Protein Neg (Negative) 11/21/21 06:50 Urine Glucose (UA) Norm (Normal) 11/21/21 06:50 Urine Ketones Negative (Negative) 11/21/21 06:50 Urine Blood 2+ (Negative) H 11/21/21 06:50 Urine Nitrate Negative (Negative) 11/21/21 06:50 Urine Bilirubin Neg (Negative) 11/21/21 06:50 Urine Urobilinogen Norm mg/dL (Negative) 11/21/21 06:50 Ur Leukocyte Esterase Negative (Negative) 11/21/21 06:50 Urine RBC None /hpf (0-2) 11/21/21 06:50 Urine WBC None /hpf (0-5) 11/21/21 06:50 Ur Squamous Epith Cells 0-4 /hpf (0-5) H 11/21/21 06:50 Amorphous Sediment Not Reportable 11/21/21 06:50 Urine Bacteria 1+ /hpf (NONE) H 11/21/21 06:50 SARS-CoV-2 Ag (Rapid) Negative (Negative) 11/21/21 06:30 Discharge Plan Discharge Patient Disposition: Home Clinical Impression: Dehydration, Gastroenteritis Condition: Stable Prescriptions: Continued Zofran 4 mg tablet 4 mg PO Q6H PRN (Reason: nausea and vomiting) Qty: 15 0RF No Action CO Q 10 PO methimazole 5 mg tablet 5 mg PO DAILY metoprolol succinate 50 mg tablet extended release 24 hr See Rx Instructions PO BID Qty: 180 3RF Rx Instructions: 100mg in the AM, 50mg in the PM PO fluticasone propionate 50 mcg/actuation spray,suspension 1 spray intranasal BID PRN (Reason: nasal congestion) Qty: 16 0RF Rx Instructions: administer into each nostril Vitamin D3 125 mcg (5,000 unit) Tablet 125 mcg PO QAM levalbuterol tartrate 45 mcg/actuation HFA aerosol inhaler 1 puff INHALATION Q4H PRN (Reason: Wheezing) aspirin 325 mg Tablet,Delayed Release (Dr/Ec) 325 mg PO DAILY Qty: 30 0RF diltiazem HCl 120 mg Capsule,Extended Release 24hr 120 mg PO DAILY Qty: 30 0RF Vitamin C 1,000 mg tablet 1,000 mg PO BID zinc 50 mg Tablet 50 mg PO QAM Medrol (Eh) 4 mg tablets,dose pack See Rx Instructions PO .COMPLEX Qty: 21 0RF Rx Instructions: orally per package directions Discharge Orders: Discharge ED (Routine); Ordered 11/21/21 Ordered By: Dillon Steiner Referrals: Oksana Shelley MD [Primary Care Provider] - 1-3 days Patient Instructions: Dehydration (ED), Gastroenteritis (ED) Activity Restrictions/Additional Instructions: Continue to watch for fever. Drink plenty of fluids. Return for worsening chest discomfort, shortness of breath, headache, lethargy, abdominal pain despite treatment. Return also for inability to hold down liquids. 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
[2021-11-21 07:18] LABS: SARS Covid-2 Antigen Negative (Negative)
[2021-11-21 07:32] LABS: Specific Gravity, Urine 1.005 (1.005-1.030); Urine Appearance Clear (CLEAR); Urine Color Yellow (Yellow); pH Urine 6.5 (5-7)
[2021-11-21 07:33] LABS: Add Urine Microscopic? YES; Bilirubin Urine Neg (Negative); Blood Urine 2+ (Negative); Glucose Urine UA Norm (Normal); Ketones Urine Negative (Negative); Leukocyte Esterase Urine Negative (Negative); Nitrate Urine Negative (Negative); Protein Urine Neg (Negative); Urobilinogen Urine Norm (Negative)
[2021-11-21] MEDS: potassium chloride ER 20 mEq Tablet 40 MEQ PO (07:34)
[2021-11-21 07:35] LABS: Add Urine Culture? No; Bacteria Urine 1+ /hpf; Squamous Epithelial Cell Urine 0-4 /hpf (0-5)
== END 2021-11-21 10:00 | disposition home or self-care (01) ==
PROVIDERS: Emergency Provider Emergency Medicine; PCP Family Medicine
DX: K52.9 Noninfective gastroenteritis and colitis, unspecified (principal); E86.0 Dehydration; Z79.82 Long term (current) use of aspirin; I10 Essential (primary) hypertension; F17.210 Nicotine dependence, cigarettes, uncomplicated; Z20.822 Contact with and (suspected) exposure to COVID-19
CPT/HCPCS: 71045; 74018; 80053; 81001; 85025; 86140; 87426; 93005; 96361; 96374; 99285; J2405; J7030

== ENCOUNTER → 2022-02-17 10:51 | Outpatient (BNVA) | payer OTHER, SELFPAY | PROVIDERS: PCP Family Medicine; Visit Provider Emergency Medicine | DX: R09.81 Nasal congestion (principal); J10.1 Influenza due to other identified influenza virus with other respiratory manifestations | CPT/HCPCS: 87400; 87426; 87880 ==

== ENCOUNTER 2022-03-26 03:31 | Emergency (ER) | payer OTHER, SELFPAY ==
[2022-03-26 03:39] VITALS: BP 177/90; PULSE 83; RESP 18; TEMP 36.8; O2SAT 97; BMI 31.6
--- NOTE | 2022-03-26 03:46 | CTR_ITS ---
PROCEDURE INFORMATION: Exam: CT Head Without Contrast Exam date and time: 03/26/2022 4:14 AM Age: 41 years old Clinical indication: Injury or trauma; Fall; Blunt trauma (contusions or hematomas); Consciousness not specified TECHNIQUE: Imaging protocol: Computed tomography of the head without contrast. Radiation optimization: All CT scans at this facility use at least one of these dose optimization techniques: automated exposure control; mA and/or kV adjustment per patient size (includes targeted exams where dose is matched to clinical indication); or iterative reconstruction. COMPARISON: CT head wo con* [id number] 03/07/2021 8:40 PM RADIATION DOSE METRICS: Total DLP (mGy-cm): 1195.37 FINDINGS: Brain: No focal hemorrhage or midline shift is identified. Cerebral ventricles: No ventriculomegaly or evidence of acute hydrocephalus. Paranasal sinuses: The partially assessed sinuses are grossly clear. Mastoid air cells: Visualized mastoid air cells are well aerated. Bones/joints: No displaced skull fracture is noted. Soft tissues: Unremarkable. CT/CT head wo con* [id number] IMPRESSION: No acute intracranial abnormality.
--- NOTE | 2022-03-26 03:47 | ED_ITS ---
HPI - General Adult General: Chief complaint: General Medical Stated complaint: High Bp 161/88, headache Time Seen by Provider: 03/26/22 03:34 Source: patient Mode of arrival: ambulatory Limitations: no limitations History of Present Illness: 41-year-old female states she has a history of hypertension state over the last 2 days her blood pressures been running higher than normal states she did have a fall 2 days ago and juan her head and she had a headache since then. She had no loss consciousness her blood pressure tonight is in the 160s she denies any chest pain or any other complaints at this time. Associated symptoms: Reports headache(s); Deny chest pain, dyspnea, nausea, rash or vomiting Review of Systems Const: Denies: fever(s), chills, body aches or change in appetite Eyes: Denies: blurry vision or eye discomfort ENMT: Denies: throat pain or dental pain Card: Denies: chest pain Resp: Denies: dyspnea GI: Denies: abdominal pain, nausea, vomiting or diarrhea : Denies: dysuria Musc: Denies: neck pain or back pain Skin/Breast: Denies: rash Neuro: Reports: headache(s) Psych: Denies: depression Tom/Lymph: Denies: easy bruising All/Imm: Denies: urticaria PFSH ED PFSH: Medical History Asthma History of Graves' disease History of hyperthyroidism Hypertension Hyperthyroidism Hypothyroidism Migraine headache Smoking Tobacco dependency Surgical History H/O section x 3. H/O laparoscopy (~2010) S/P endometrial ablation (03/27/10) Family History Mother Hypertension Other CAD (coronary artery disease) Diabetes Social History Smoking and tobacco status: current every day smoker cigarettes Packs smoked per day: 1 Alcohol intake: never Female Reproductive History: Spontaneous abortions: No Physical Exam Const: COMMON NORMALS: no acute distress, patient oriented x3 and healthy appearing HENMT: COMMON NORMALS: normocephalic and atraumatic HEAD & SCALP: normocephalic and atraumatic Eye: COMMON NORMALS: Equal, round and reactive pupils present and EOMs intact bilaterally PUPIL: Yes Equal, round and reactive pupils present Neck/C-Spine: COMMON NORMALS: full ROM and supple Chest: COMMONS NORMALS: normal inspection of the chest and normal palpation of entire chest wall Resp: COMMON NORMALS: normal respiratory effort, No retractions, No use of accessory muscles and clear to auscultation bilaterally AUSCULTATION: clear to auscultation bilaterally Cardio: COMMON NORMALS: regular rate, regular rhythm and No murmurs present (Cardio) RATE: regular rate RHYTHM: regular rhythm GI: COMMON NORMALS: Normal to inspection, nondistended, normoactive bowel sounds present, Soft to palpation, non-tender and no masses PALPATION: Yes Soft to palpation Extremity: COMMON NORMALS: normal to inspection and full ROM Neuro: COMMON NORMALS: patient oriented x3, moves all extremities and no focal motor deficits Psych: COMMON NORMALS: mental status grossly normal, Normal thought process present and cooperative THOUGHT PROCESS: Normal thought process present Skin: COMMON NORMALS: no rashes or lesions noted and no wounds GENERAL SKIN EXAM: no rashes or lesions noted Course Vital Signs: Vital signs: Vital Signs Temperature 98.2 F 03/26/22 03:39 Pulse Rate 76 03/26/22 04:12 Respiratory Rate 18 03/26/22 04:12 Blood Pressure 146/96 03/26/22 04:12 Pulse Oximetry 98 03/26/22 04:12 [facility] - General Adult Medical Decision Making Patient presents for hypertension along with a headache her headaches much improved blood pressures improved here is currently 138/[address] is normal no signs of intracranial hemorrhage she is stable for discharge she is to follow-up with PCP and return if worsening. Lab Data Radiology Impressions Head CT 03/26/22 03:46 IMPRESSION: No acute intracranial abnormality. Discharge Plan Discharge Patient Disposition: Home Clinical Impression: Hypertension, Headache Condition: Stable Prescriptions: No Action methimazole 5 mg tablet 2.5 mg PO DAILY diltiazem HCl 120 mg capsule,extended release 24hr 120 mg PO BID Qty: 60 3RF clonidine HCl 0.1 mg tablet 0.1 mg PO BID PRN (Reason: hypertensive emergency) Qty: 180 2RF losartan 50 mg tablet 50 mg PO DAILY Qty: 90 3RF Vitamin D3 125 mcg (5,000 unit) Tablet 125 mcg PO QAM levalbuterol tartrate 45 mcg/actuation HFA aerosol inhaler 1 puff INHALATION Q4H PRN (Reason: Wheezing) aspirin 325 mg Tablet,Delayed Release (Dr/Ec) 325 mg PO DAILY Qty: 30 0RF Vitamin C 1,000 mg tablet 1,000 mg PO BID Zofran 4 mg tablet 4 mg PO Q6H PRN (Reason: nausea and vomiting) Qty: 15 0RF zinc 50 mg Tablet 50 mg PO QAM Discharge Orders: Discharge ED (Routine); Ordered 03/26/22 Ordered By: Rosaura Mcbride Referrals: Oksana Shelley MD [Primary Care Provider] - Discharge Diet: Advance as tolerated Discharge Activity: Resume usual activity Patient Instructions: Hypertension (ED) Coding Level of Care Code ED Principal Technical Writer for Chg Fwd Exam Comprehensive
--- NOTE | 2022-03-26 04:01 | ECG_ITS ---
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 Measurements Intervals [place] Rate: 76 P: 73 NE: 196 QRS: 69 QRSD: 105 T: 64 QT: 392 QTc: 442 Interpretive Statements SINUS RHYTHM Possible left atrial enlargement Compared to ECG 11/21/2021 05:19:25 ST (T wave) deviation no longer present Electronically Signed On 03-26-2022 15:19:04 BLANKET MAKER by Julieta Ornelas M.D. [id number]
[2022-03-26] MEDS: metoclopramide 5 mg/mL SDV 2 mL 10 MG IVP (04:06)
[2022-03-26] MEDS: diphenhydrAMINE 50 mg/mL SDV 1mL IVP (04:09)
[2022-03-26] MEDS: hyDRALAzine 20 mg/mL INJ 1 mL 10 MG IVP (04:11)
[2022-03-26 04:12] VITALS: BP 146/96; PULSE 76; RESP 18; O2SAT 98
[2022-03-26 04:59] VITALS: BP 138/89; PULSE 76; RESP 16; O2SAT 96
== END 2022-03-26 05:03 | disposition home or self-care (01) ==
PROVIDERS: Emergency Provider Emergency Medicine; PCP Family Medicine
DX: I10 Essential (primary) hypertension (principal); R51.9 Headache, unspecified; Z79.82 Long term (current) use of aspirin; F17.210 Nicotine dependence, cigarettes, uncomplicated
CPT/HCPCS: 70450; 93005; 96374; 96375; 99285; J0360; J1200; J2765

== ENCOUNTER 2022-03-27 09:10 | Emergency (ER) | payer OTHER, SELFPAY ==
[2022-03-27] VITALS (10 sets, daily range): BP systolic 136–159; BP diastolic 80–112; PULSE 72–111; RESP 14–19; TEMP 36.8; O2SAT 93–99
--- NOTE | 2022-03-27 12:24 | XRR_ITS ---
PROCEDURE INFORMATION: Exam: XR Chest Exam date and time: 03/27/2022 12:50 PM Age: 41 years old Clinical indication: Cough TECHNIQUE: Imaging protocol: Radiologic exam of the chest. Views: 2 views. COMPARISON: CR (CHEST, ) 11/21/2021 6:37 AM FINDINGS: Lungs: Unremarkable. No consolidation. Pleural spaces: Unremarkable. No pleural effusion. No pneumothorax. Heart/Mediastinum: Unremarkable. No cardiomegaly. Bones/joints: Unremarkable. XR/XR chest 2V* [id number] IMPRESSION: No acute findings.
--- NOTE | 2022-03-27 12:26 | ED_ITS ---
HPI - General Adult General: Chief complaint: General Medical Stated complaint: bp issues Time Seen by Provider: 03/27/22 12:18 History of Present Illness: 41-year-old female presents because her blood pressure was high been seen to be low but high recently. She reports gets high as 162/94. Upon arrival is 138 over 90s. Patient is currently on multiple blood pressure medications. She also complains of a rattling in her chest some generalized malaise, bilateral ear pain. No reports of fever, chills, nausea or vomiting. Associated symptoms: Deny chest pain, dyspnea, headache(s), nausea, rash, palpitations or vomiting Review of Systems Const: Reports: fatigue; Denies: fever(s) or chills Eyes: Denies: change in vision or eye discomfort ENMT: Reports: ear or mastoid pain; Denies: throat pain Card: Denies: chest pain or palpitations Resp: Reports: productive cough; Denies: dyspnea GI: Denies: abdominal pain, nausea or vomiting : Denies: flank pain or difficulty voiding Musc: Denies: neck pain or back pain Skin/Breast: Denies: rash or pruritus Neuro: Denies: headache(s), numbness in extremities or weakness in extremities PFSH ED PFSH: Medical History Asthma History of Graves' disease History of hyperthyroidism Hypertension Hyperthyroidism Hypothyroidism Migraine headache Smoking Tobacco dependency Surgical History H/O section x 3. H/O laparoscopy (~2010) S/P endometrial ablation (03/27/10) Family History Mother Hypertension Other CAD (coronary artery disease) Diabetes Social History Smoking and tobacco status: current every day smoker cigarettes Packs smoked per day: 1 Alcohol intake: never Female Reproductive History: Spontaneous abortions: No Course Vital Signs: Vital signs: Vital Signs Temperature 98.2 F 03/27/22 09:20 Pulse Rate 80 03/27/22 13:23 Respiratory Rate 18 03/27/22 13:19 Blood Pressure 149/97 03/27/22 11:17 Pulse Oximetry 99 03/27/22 13:23 Oxygen Delivery Me thod 03/27/22 13:19 MDM - General Adult Medical Decision Making Patient is x-ray shows no acute findings. Patient's labs showed no significant findings. I discussed with her she does have some hematuria. Patient continues to smoke and is concerned about her blood pressure. I discussed with her that she needs to follow-up as her blood pressures in the ER or not a concerning level. That she needs to discuss with her primary care provider or special education tutor blood pressure changes along with lifestyle changes. A long discussion with her that there is many causes of elevated blood pressure and a lot of them are controllable with lifestyle changes including stop smoking. Patient is likely starting to have some early COPD changes because she has some mild wheezing but no signs of infection. Albuterol did not help her symptoms. I discussed with her the need to follow-up with her primary care provider for further outpatient evaluation she is stable and discharged home Lab Data 03/27/22 12:39 03/27/22 12:39 Radiology Impressions Chest X-Ray 03/27/22 12:24 IMPRESSION: No acute findings. Laboratory Results WBC 9.7 10^3/uL (4.0-10.0) 03/27/22 12:39 RBC 4.98 10^6/uL (4.1-5.3) 03/27/22 12:39 Hgb 15.3 g/dL (11.5-15.3) 03/27/22 12:39 Hct 46.5 % (37.0-47.0) 03/27/22 12:39 MCV 93.4 fl (81-99) 03/27/22 12:39 MCH 30.7 pg (28.0-34.0) 03/27/22 12:39 MCHC 32.9 g/dL (30.0-36.0) 03/27/22 12:39 RDW 13.3 % (12.1-15.1) 03/27/22 12:39 Plt Count 271 10^3/cmm (130-400) 03/27/22 12:39 MPV 9.9 fL (7.4-10.4) 03/27/22 12:39 Neut % (Auto) 65.9 % 03/27/22 12:39 Lymph % (Auto) 25.2 % 03/27/22 12:39 [place] % (Auto) 5.8 % 03/27/22 12:39 Eos % (Auto) 1.9 % 03/27/22 12:39 Baso % (Auto) 0.8 % 03/27/22 12:39 Neut # (Auto) 6.36 10^3/uL (1.8-7.7) 03/27/22 12:39 Lymph # (Auto) 2.4 10^3/uL (0.8-4.8) 03/27/22 12:39 [place] # (Auto) 0.6 10^3/uL (0.2-0.9) 03/27/22 12:39 Eos # (Auto) 0.2 10^3/uL (0.0-0.8) 03/27/22 12:39 Baso # (Auto) 0.1 10^3/uL (0.0-0.1) 03/27/22 12:39 Nucleated RBC % (auto) 0 % 03/27/22 12:39 Nucleated RBCs # 0.0 /100WBC 03/27/22 12:39 Sodium 135 mmol/L (136-145) L 03/27/22 12:39 Potassium 4.1 mmol/L (3.5-5.1) 03/27/22 12:39 Chloride 104 mmol/L (98-107) 03/27/22 12:39 Carbon Dioxide 21 mmol/L (22-29) L 03/27/22 12:39 Anion Gap 14.1 (5-19) 03/27/22 12:39 BUN 10 mg/dL (6-20) 03/27/22 12:39 Creatinine 0.4 mg/dL (0.5-0.9) L 03/27/22 12:39 GFR Calculation 175.0 mL/min (90-130) H 03/27/22 12:39 Glucose 87 mg/dL (65-115) 03/27/22 12:39 Calculated Osmolality 278 mOsm/kg (285-295) L 03/27/22 12:39 Calcium 9.4 mg/dL (8.5-10.5) 03/27/22 12:39 Total Bilirubin 0.4 mg/dL (0.15-1.2) 03/27/22 12:39 AST 19 U/L (0-32) 03/27/22 12:39 ALT 21 U/L (0-33) 03/27/22 12:39 Alkaline Phosphatase 71 U/L (35-105) 03/27/22 12:39 C-Reactive Protein 3.0 mg/L (0.0-4.9) 03/27/22 12:39 Total Protein 7.3 g/dL (6.6-8.7) 03/27/22 12:39 Albumin 4.2 g/dL (3.5-5.2) 03/27/22 12:39 Globulin 3.1 g/dL (1.3-4.6) 03/27/22 12:39 Procalcitonin 0.03 ng/mL (0-0.5) 03/27/22 12:39 Urine Color Yellow (Yellow) 03/27/22 12:39 Urine Appearance Hazy (CLEAR) A 03/27/22 12:39 Urine pH 6 (5-7) 03/27/22 12:39 Ur Specific [place] 1.010 (1.005-1.030) 03/27/22 12:39 Urine Protein Neg (Negative) 03/27/22 12:39 Urine Glucose (UA) Norm (Normal) 03/27/22 12:39 Urine Ketones Negative (Negative) 03/27/22 12:39 Urine Blood Trace (Negative) H 03/27/22 12:39 Urine Nitrate Negative (Negative) 03/27/22 12:39 Urine Bilirubin Neg (Negative) 03/27/22 12:39 Urine Urobilinogen Norm mg/dL (Negative) 03/27/22 12:39 Ur Leukocyte Esterase Negative (Negative) 03/27/22 12:39 Urine RBC 0-4 /hpf (0-2) H 03/27/22 12:39 Urine WBC None /hpf (0-5) 03/27/22 12:39 Ur Squamous Epith Cells 0-4 /hpf (0-5) H 03/27/22 12:39 Amorphous Sediment Not Reportable 03/27/22 12:39 Urine Bacteria 1+ /hpf (NONE) H 03/27/22 12:39 Discharge Plan Discharge Patient Disposition: Home Clinical Impression: Smoking, Eustachian tube dysfunction, Otalgia, bilateral, Hypertension Condition: Stable Prescriptions: No Action methimazole 5 mg tablet 2.5 mg PO DAILY diltiazem HCl 120 mg capsule,extended release 24hr 120 mg PO BID Qty: 60 3RF clonidine HCl 0.1 mg tablet 0.1 mg PO BID PRN (Reason: hypertensive emergency) Qty: 180 2RF losartan 50 mg tablet 50 mg PO DAILY Qty: 90 3RF Vitamin D3 125 mcg (5,000 unit) Tablet 125 mcg PO QAM levalbuterol tartrate 45 mcg/actuation HFA aerosol inhaler 1 puff INHALATION Q4H PRN (Reason: Wheezing) aspirin 325 mg Tablet,Delayed Release (Dr/Ec) 325 mg PO DAILY Qty: 30 0RF Vitamin C 1,000 mg tablet 1,000 mg PO BID Zofran 4 mg tablet 4 mg PO Q6H PRN (Reason: nausea and vomiting) Qty: 15 0RF zinc 50 mg Tablet 50 mg PO QAM Discharge Orders: Discharge ED (Routine); Ordered 03/27/22 Ordered By: Sergey Calhoun Referrals: Oksana Shelley MD [Primary Care Provider] - Discharge Diet: Usual diet Discharge Activity: Increase activity as tolerated Patient Instructions: How to Stop Smoking (ED), Earache (ED), Hypertension (ED), Opioid Safety, Pain Management Activity Restrictions/Additional Instructions: As directedNasacort/Flonase or similar nasal steroid package to help with ear pain, recommended proper ears gently twice daily. Please follow-up with your primary care provider or special education tutor for further evaluation of your blood pressure concerns along with consider some lifestyle changes. Please consider stop smoking as it will help both your lungs and your blood pressure. Coding Level of Care Code ED Museum Registrar for Jennifer Torrez
[2022-03-27 13:06] LABS: Basophils # 0.1 10^3/uL (0.0-0.1); Basophils % 0.8 %; Eosinophils # 0.2 10^3/uL (0.0-0.8); Eosinophils % 1.9 %; Hematocrit 46.5 % (37.0-47.0); Hemoglobin 15.3 g/dL (11.5-15.3); Lymphocytes # 2.4 10^3/uL (0.8-4.8); Lymphocytes % 25.2 %; Mean Corpuscular HGB Conc 32.9 g/dL (30.0-36.0); Mean Corpuscular Hemoglobin 30.7 pg (28.0-34.0); Mean Corpuscular Volume 93.4 fl (81-99); Mean Platelet Volume 9.9 fL (7.4-10.4); Monocytes # 0.6 10^3/uL (0.2-0.9); Monocytes % 5.8 %; Neutrophils # 6.36 10^3/uL (1.8-7.7); Neutrophils % 65.9 %; Nucleated Red Blood Cells % 0 %; Platelet Count 271 10^3/cmm (130-400); Red Blood Count 4.98 10^6/uL (4.1-5.3); Red Cell Distribution Width 13.3 % (12.1-15.1); White Blood Count 9.7 10^3/uL (4.0-10.0)
[2022-03-27 13:14] LABS: Add Urine Microscopic? YES; Bacteria Urine 1+ /hpf; Bilirubin Urine Neg (Negative); Blood Urine Trace (Negative); Glucose Urine UA Norm (Normal); Ketones Urine Negative (Negative); Leukocyte Esterase Urine Negative (Negative); Nitrate Urine Negative (Negative); Protein Urine Neg (Negative); RBC Urine 0-4 /hpf (0-2); Squamous Epithelial Cell Urine 0-4 /hpf (0-5); Urine Appearance Hazy (CLEAR); Urine Color Yellow (Yellow); Urobilinogen Urine Norm (Negative); pH Urine 6 (5-7)
[2022-03-27] MEDS: albuterol 2.5 mg/3 mL Neb INHALATION (13:17)
[2022-03-27 13:29] LABS: Alanine Aminotransferase 21 U/L (0-33); Albumin Level 4.2 g/dL (3.5-5.2); Alkaline Phosphatase 71 U/L (35-105); Aspartate Amino Transferase 19 U/L (0-32); Blood Urea Nitrogen 10 mg/dL (6-20); Calcium 9.4 mg/dL (8.5-10.5); Carbon Dioxide 21 mmol/L (22-29); Chloride 104 mmol/L (98-107); Globulin 3.1 g/dL (1.3-4.6); Glucose 87 mg/dL (65-115); Osmolality Calculated 278 mOsm/kg (285-295); Sodium 135 mmol/L (136-145); Total Bilirubin 0.4 mg/dL (0.15-1.2); Total Protein 7.3 g/dL (6.6-8.7)
[2022-03-27 13:34] LABS: Anion Gap 14.1 (5-19); Potassium 4.1 mmol/L (3.5-5.1)
[2022-03-27 13:36] LABS: Procalcitonin 0.03 ng/mL (0-0.5)
== END 2022-03-27 14:09 | disposition home or self-care (01) ==
PROVIDERS: Emergency Provider Student in an Organized Health Care Education/Training Program; PCP Family Medicine
DX: H92.03 Otalgia, bilateral (principal); I10 Essential (primary) hypertension; H69.80 Other specified disorders of Eustachian tube, unspecified ear; F17.210 Nicotine dependence, cigarettes, uncomplicated; Z79.82 Long term (current) use of aspirin
CPT/HCPCS: 71046; 80053; 81001; 84145; 85025; 86140; 94640; 99284; J7613

== ENCOUNTER 2022-05-03 10:44 | Outpatient (CLI) | payer OTHER, SELFPAY ==
--- NOTE | 2022-05-03 10:57 | MR_ITS ---
WS: [id number] MRI CERVICAL SPINE NONCONTRAST HISTORY: BACK PAIN W/LEFT SIDED RADICULOPATHY COMPARISON: None available. Technique: Multiplanar, multisequence noncontrast imaging of the cervical spine. Mild straightening reversal the normal cervical lordosis. Reversal centered at C4-5. Signal within the cervical cord is normal. Visualized posterior fossa is unremarkable. Craniocervical junction, C1 and C2 relationship, odontoid process and soft tissues are normal. C2-C3: Normal. C3-C4: Normal. C4-C5: Small central disc protrusion. Mild facet joint arthritis and LEFT foraminal stenosis. C5-C6: Diffuse annular disc bulge with a central disc protrusion. Effacement of CSF and slight deform ity and narrowing of the cervical cord. There is mild ligamentum flavum hypertrophy and facet arthrit is. Mild central stenosis. C6-C7: Small LEFT foraminal osteophyte. No stenosis. C7-T1: Normal. Paraspinal soft tissue are normal. MR/MR cervical spin wo con* [id number] IMPRESSION: 1. Focal cervical stenosis centered at C5-6 with mild deformity of the cord. 2. Annular disc bulge with a central disc protrusion and osteophytes at C5-6 c ontributing to this central stenosis. 3. Very minimal LEFT foraminal narrowing at C4-5 predominantly due to an oste ophyte.
== END 2022-05-03 10:45 | disposition home or self-care (01) ==
LOC: RAD 10:47
PROVIDERS: PCP Family Medicine; Visit Provider Family Medicine
DX: M54.10 Radiculopathy, site unspecified (principal); M48.02 Spinal stenosis, cervical region; M25.78 Osteophyte, vertebrae; M50.222 Other cervical disc displacement at C5-C6 level
CPT/HCPCS: 72141

== ENCOUNTER 2022-05-20 07:41 | Outpatient (CLI) | payer OTHER, SELFPAY ==
--- NOTE | 2022-05-20 07:46 | NM_ITS ---
WS: [id number] NUCLEAR MEDICINE HIDA SCAN CLINICAL INFORMATION: ABDOMINAL BLOATING GERD TECHNIQUE: Following intravenous administration of 7.4 mCi of technetium 99m mebrofenin, images of th e abdomen were obtained over the course of 60 minutes. Next, gallbladder ejection fraction was determ ined by obtaining preprandial and one-hour postprandial images of the gallbladder following oral rosaura stion of Ensure. COMPARISON: None. FINDINGS: Hepatomegaly. Normal hepatic uptake at 5 minutes. Normal hepatic excretion. Normal small bowel and co mmon bile duct activity. Gallbladder is visualized by 10 minutes. No evidence of acute cholecystitis. Normal gallbladder ejection fraction 89% within normal limits. No evidence of chronic cholecystitis. NM/NM hepatobiliary w phar* [id number] IMPRESSION: 1. No evidence of acute or chronic cholecystitis. 2. Normal gallbladder ejection fraction 89% within normal limits.
== END 2022-05-20 07:42 | disposition home or self-care (01) ==
PROVIDERS: PCP Family Medicine; Visit Provider Family Medicine
DX: R14.0 Abdominal distension (gaseous) (principal); K21.9 Gastro-esophageal reflux disease without esophagitis
CPT/HCPCS: 78227; A9537

== ENCOUNTER 2022-06-19 11:18 | Emergency (ER) | payer OTHER, SELFPAY ==
[2022-06-19 11:46] VITALS: BP 175/82; PULSE 81; TEMP 36.8; O2SAT 98; BMI 32.3
--- NOTE | 2022-06-19 11:52 | ECG_ITS ---
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 Measurements Intervals [place] Rate: 78 P: 42 NM: 197 QRS: 44 QRSD: 101 T: 45 QT: 378 QTc: 431 Interpretive Statements SINUS RHYTHM Compared to ECG 03/26/2022 04:01:29 No significant changes Electronically Signed On 06-19-2022 22:35:54 CDT by Isaiah Kaiser M.D. [id number]
[2022-06-19 13:58] VITALS: BP 162/80; RESP 15; O2SAT 97
--- NOTE | 2022-06-19 13:58 | W.ED.WEAKNES ---
HPI - Weakness General: Chief complaint: Shortness of Breath/Dyspnea Stated complaint: sob Time Seen by Provider: 06/19/22 13:40 History of Present Illness: 41-year-old female with hyperthyroidism on methimazole, paroxysmal atrial fibrillation on aspirin, presenting with complaint of weakness over the last 2 weeks. States that she had her losartan increased to 50 mg by her primary care physician and since that time her blood pressure has still been elevated higher than her goal blood pressure. She believes that this is causing her to have mild headaches over the last 2 weeks and lack of motivation to get up and do things during the day. She states that she has difficulty sleeping and reduced appetite over the same course of time. Denies fevers, sweats, chills, cough, shortness of breath (in contrast to triage note). She describes it as weakness as decreased motivation. Additionally she states that she has an aching headache on and off for the last 2 weeks, mild at onset, global without visual changes, auditory changes, weakness in her extremities. States came into the ER due to inability to get an appointment this week with regular physician. [facility] ED PFSH: Medical History Asthma History of Graves' disease History of hyperthyroidism Hypertension Hyperthyroidism Hypothyroidism Migraine headache Smoking Tobacco dependency Surgical History H/O section x 3. H/O laparoscopy (~2010) S/P endometrial ablation (03/27/10) Family History Mother Hypertension Other CAD (coronary artery disease) Diabetes Social History Smoking and tobacco status: current every day smoker cigarettes Packs smoked per day: 1 Alcohol intake: never Female Reproductive History: Spontaneous abortions: No Physical Exam Const: COMMON NORMALS: no acute distress and average body habitus GENERAL APPEARANCE: cooperative HENMT: COMMON NORMALS: normocephalic, atraumatic and Normal external nose present HEAD & SCALP: normocephalic and atraumatic FACE & SINUS: normal facial exam, sinuses nontender and face symmetric NOSE: Normal external nose present and Normal nares present GENERAL EAR: hearing grossly impaired MOUTH: Normal oral and palatal mucosa present TEETH & GINGIVA: Yes abnormal tooth and associated gingiva THROAT: posterior oropharynx normal Eye: COMMON NORMALS: Equal, round and reactive pupils present, EOMs intact bilaterally, conjunctivae normal, no scleral icterus and no papilledema GENERAL EYE: appearance normal, both eyes and all related structures VISUAL MARIE: No left visual field cut and No right visual field cut ALIGNMENT: Yes alignment normal CONJUNCTIVA: Yes conjunctivae normal SCLERA: sclerae normal PUPIL: Yes Equal, round and reactive pupils present and Yes Pupil accommodation reflex normal DIRECT OPHTHALMOSCOPY: Yes no papilledema Neck/C-Spine: COMMON NORMALS: full ROM and no lymphadenopathy Lymph: LYMPHATIC: no lymphadenopathy noted Chest: COMMONS NORMALS: normal inspection of the chest Resp: COMMON NORMALS: normal respiratory effort and No retractions Cardio: COMMON NORMALS: regular rate and regular rhythm RATE: regular rate RHYTHM: regular rhythm GI: COMMON NORMALS: Normal to inspection, nondistended, normoactive bowel sounds present, Soft to palpation and non-tender PALPATION: Yes Soft to palpation Course Vital Signs: Vital signs: Vital Signs Temperature 98.2 F 06/19/22 11:46 Pulse Rate 81 06/19/22 11:46 Respiratory Rate 15 06/19/22 13:58 Blood Pressure 162/80 06/19/22 13:58 Pulse Oximetry 97 06/19/22 13:58 Oxygen Delivery Me thod 06/19/22 13:58 MDM - Weakness Medical Decision Making 41-year-old female with multiple symptoms today including nonspecific weakness, lack of motivation, and headache. Vitals nonactionable. EKG nonactionable with first-degree AV block. Social determinants of health include [place] care. Considered CVA, electrolyte derangement, anemia, endocrine abnormality, vasculitis, others. Patient with progressive onset global tension type headache symptoms for 1 week without migrainous aura, visual changes, or sudden onset. Patient had labs drawn 2 months ago demonstrated normal TSH and T4. Offered laboratory testing which patient declines. Feel head imaging not indicated at this time given progressive symptoms of headache without red flags of headache. Additionally provided Motrin, Tylenol, and Benadryl in the emergency department with oral hydration with improvement of headache symptoms. Education to stop smoking provided. EKG Data EKG 1: I personally reviewed and interpreted this EKG as follows: Prior EKG tracings: available for review Other EKG comments: Rate 60, normal axis, sinus rhythm, no ST elevation, present. first-degree AV block Discharge Plan Discharge Clinical Impression: Headache, Hypertension Condition: Stable Prescriptions: No Action methimazole 5 mg tablet 2.5 mg PO DAILY losartan 50 mg tablet 50 mg PO BID Qty: 90 3RF fluticasone propion-salmeterol [Advair Diskus] 250-50 mcg/dose blister with device 1 inh inhalation BID Super Beets PO clonidine HCl 0.1 mg tablet 0.1 mg PO BID PRN (Reason: hypertensive emergency) Qty: 180 2RF diltiazem HCl 120 mg capsule,extended release 24hr 120 mg PO BID Qty: 180 1RF Vitamin D3 125 mcg (5,000 unit) Tablet 125 mcg PO QAM levalbuterol tartrate 45 mcg/actuation HFA aerosol inhaler 1 puff INHALATION Q4H PRN (Reason: Wheezing) aspirin 325 mg Tablet,Delayed Release (Dr/Ec) 325 mg PO DAILY Qty: 30 0RF Vitamin C 1,000 mg tablet 1,000 mg PO BID Zofran 4 mg tablet 4 mg PO Q6H PRN (Reason: nausea and vomiting) Qty: 15 0RF zinc 50 mg tablet 50 mg PO QAM PRN Discharge Orders: Discharge ED (Routine); Ordered 06/19/22 Ordered By: Bg Varela Referrals: Oksana Shelley MD [Primary Care Provider] - Discharge Diet: Advance as tolerated Discharge Activity: Resume usual activity Patient Instructions: Acute Headache (ED), Hypertension (ED) Coding Level of Care Code ED Engineering Systems Analyst for Jennifer Torrez
[2022-06-19] MEDS: diphenhydrAMINE 25 mg Capsule PO (14:01)
[2022-06-19] MEDS: acetaminophen 500 mg Tablet 1000 MG PO (14:01)
[2022-06-19] MEDS: ibuprofen 200 mg Tablet 400 MG PO (14:01)
[2022-06-19 14:43] VITALS: PULSE 69; RESP 14; O2SAT 99
[2022-06-19 14:52] VITALS: BP 148/82; PULSE 74; RESP 16; O2SAT 98
== END 2022-06-19 14:53 | disposition home or self-care (01) ==
PROVIDERS: Emergency Provider General Practice; PCP Family Medicine
DX: R51.9 Headache, unspecified (principal); I10 Essential (primary) hypertension; J45.909 Unspecified asthma, uncomplicated; I44.0 Atrioventricular block, first degree; F17.210 Nicotine dependence, cigarettes, uncomplicated
CPT/HCPCS: 93005; 99283

== ENCOUNTER 2022-08-26 11:54 | Emergency (ER) | payer OTHER, SELFPAY ==
[2022-08-26] VITALS (8 sets, daily range): BP systolic 127–154; BP diastolic 83–100; PULSE 67–83; RESP 14–18; TEMP 36.8; O2SAT 96–98; BMI 32.5
--- NOTE | 2022-08-26 11:56 | ECG_ITS ---
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 Measurements Intervals [place] Rate: 69 P: 41 MA: 193 QRS: 61 QRSD: 93 T: 53 QT: 394 QTc: 423 Interpretive Statements SINUS RHYTHM Compared to ECG 06/19/2022 11:52:48 No significant changes Electronically Signed On 08-26-2022 14:46:58 CDT by Isaiah Kaiser M.D. [email or web address].[employer]/store/OM/[id number]
--- NOTE | 2022-08-26 13:27 | XR_ITS ---
WS: [id number] Exam: XR chest 1V portable [id number] Date/Time of Exam: 08/26/2022 1:27 PM Reason For Exam: sob Comparison 03/27/2022. Findings: The lungs are clear and fully expanded. Costophrenic angles are sharp. No infiltrates. Bronchovascula r relief appears normal. Cardiac silhouette is unremarkable. Bony elements are intact. XR/XR chest 1V portable [id number] IMPRESSION: Unremarkable chest radiograph.
--- NOTE | 2022-08-26 13:28 | W.ED.GENADLT ---
HPI - General Adult General: Chief complaint: General Medical Stated complaint: light headed, sob Time Seen by Provider: 08/26/22 13:13 Source: patient and family Mode of arrival: ambulatory History of Present Illness: This patient presents to our emergency department for various vague somatic symptoms. She states the symptoms have been predominantly there for probably 2 months. She describes that on occasion she will get up and she will feel lightheaded for short period of time and then that resolves and then she is able to do her normal activities. She also complains of shoulder and neck pain. She apparently has been seen by neurosurgery in the last month and told she had cervical disc disease and was recommended for neurosurgery but has not made that decision to have that done. She was seen by Oh at [facility] in [place]. She states that she has been having congestion and drainage as well. She states that she takes [id number] antihistamines with some relief. She is still smoking cigarettes. She also relates that she has a history of atrial fibrillationHas beenEssentially disc protrusion with some cord compression. And is sometimes aware when she is in A-fib and sometimes not. Taking clonidine diltiazem to chlorothiazide and losartan. She has not been seen by separator operator shellfish meats but has seen a general office support assistant. Associated symptoms: Deny chest pain, nausea, rash, palpitations, syncope or vomiting Review of Systems Const: Denies: fever(s), chills or body aches Eyes: Denies: change in vision or blurry vision ENMT: Reports: nasal discharge and nasal congestion Card: Reports: irregular heart rhythm and lightheadedness; Denies: chest pain, palpitations, syncope or pre-syncope Resp: Reports: non-productive cough; Denies: wheezing or stridor GI: Denies: nausea, vomiting or diarrhea : Denies: flank pain, difficulty voiding or dysuria Musc: Reports: neck pain; Denies: back pain, extremity pain or extremity swelling Skin/Breast: Denies: rash Psych: Denies: anxiety or depression Endo: Denies: polyuria or polydipsia PFS ED PFSH: Medical History Asthma History of Graves' disease History of hyperthyroidism Hypertension Hyperthyroidism Hypothyroidism Migraine headache Smoking Tobacco dependency Surgical History H/O section x 3. H/O laparoscopy (~2010) S/P endometrial ablation (03/27/10) Family History Mother Hypertension Other CAD (coronary artery disease) Diabetes Social History Smoking and tobacco status: current every day smoker cigarettes Packs smoked per day: 1 Alcohol intake: never Substance/Drug Use: never Female Reproductive History: Spontaneous abortions: No Physical Exam Narrative: EXAM NARRATIVE: She appears alert and cooperative and in no acute distress. Const: COMMON NORMALS: patient oriented x3 and alert GENERAL APPEARANCE: cooperative NUTRITIONAL APPEARANCE: overweight HENMT: COMMON NORMALS: normocephalic, atraumatic, EAC's normal, TM's normal bilaterally, Normal nasal mucous membranes and turbinates present, moist oral mucous membranes and oropharynx normal HEAD & SCALP: normal to inspection, normocephalic and atraumatic FACE & SINUS: face symmetric; no sinus tenderness NOSE: Normal nasal mucous membranes and turbinates present and Nasal discharge present clear EXTERNAL AUDITORY CANAL: EAC's normal TYMPANIC MEMBRANE: TM's normal bilaterally Eye: COMMON NORMALS: Equal, round and reactive pupils present, EOMs intact bilaterally and conjunctivae normal CONJUNCTIVA: Yes conjunctivae normal PUPIL: Yes Equal, round and reactive pupils present OTHER: No nystagmus noted Neck/C-Spine: COMMON NORMALS: full ROM, no lymphadenopathy and supple CERVICAL SPINE: Yes cervical ROM normal, No Cervical spine tenderness, No step off deformity and Yes Trapezius muscle tenderness bilateral Chest: COMMONS NORMALS: normal inspection of the chest Resp: COMMON NORMALS: normal respiratory effort, No use of accessory muscles and clear to auscultation bilaterally AUSCULTATION: clear to auscultation bilaterally Cardio: COMMON NORMALS: regular rate, regular rhythm, No murmurs present (Cardio) and Peripheral pulses 2+ throughout RATE: regular rate RHYTHM: regular rhythm PERIPHERAL PULSES: Peripheral pulses 2+ throughout GI: COMMON NORMALS: Soft to palpation and non-tender PALPATION: Yes Soft to palpation : COMMON NORMALS: Yes no CVA tenderness BLADDER/KIDNEY EXAM: Yes no CVA tenderness Back/Pelvis: COMMON NORMALS: no CVA tenderness, thoracic and lumbar spine normal to inspection, no thoracic nor lumbar tenderness, thoraco-lumbar ROM normal and straight leg raise negative bilaterally Extremity: COMMON NORMALS: normal to inspection, full ROM, capillary refill normal, no calf tenderness and no pedal edema Neuro: COMMON NORMALS: patient oriented x3, moves all extremities, no focal motor deficits, no sensory deficits noted and gait normal (She was observed to ambulate unaided without any ataxia.) SENSORIUM/ORIENTATION: Yes alert CRANIAL NERVES: Yes CN normal except as noted GAIT: Yes Normal gait present MOTOR EXAM: 5/5 motor strength present throughout Psych: COMMON NORMALS: mental status grossly normal Skin: COMMON NORMALS: no rashes or lesions noted, no wounds and turgor normal GENERAL SKIN EXAM: no rashes or lesions noted and turgor normal Course Reevaluation(s): Reevaluation #1: Patient has remained stable. No new or focal findings on reevaluation. Orthostatic vital signs are reassuring. Discussed current findings and their limitations and the need for additional work-up with both patient and spouse. They voiced understanding. Stable for discharge from the emergency department at this time without any evidence of an ongoing emergency medical condition. Time: 15:09 Vital Signs: Vital signs: Vital Signs Temperature 98.2 F 08/26/22 12:10 Pulse Rate 71 08/26/22 14:46 Respiratory Rate 14 08/26/22 14:00 Blood Pressure 151/83 08/26/22 14:46 Pulse Oximetry 97 08/26/22 13:40 Oxygen Delivery Me thod Room Air 08/26/22 13:31 MDM - General Adult Medical Decision Making This patient presented by private vehicle to the emergency department because she is having a lot of symptoms that she was concerned might represent heart rhythm or blood pressure problem. She has a history of intermittent episodes where she feels lightheaded many times after she is gets up too quickly. She denies any vertigo or focal weakness. She is also had some chronic neck pain that has been evaluated with by MRI and neurosurgery and recommended a cervical disc ectomy, decompression. She also has some facial pressure and rhinorrhea at times. Does have a history of atrial fibrillation as well and is unaware when she has episodes of arrhythmias but she does not notice any palpitations recently. No chest pain shortness of breath other than her usual activity she has had for some time. Clinical examination was unrevealing as to any findings of this central ataxia associated nystagmus etc. She did not have any focal upper extremity or lower extremity weakness. She had normal sinus rhythm on her monitor and EKG while she was in the emergency department. Orthostatic blood pressures and ancillary chemistries were also reassuring. No evidence to suggest arrhythmia at this time, and anemia, hypotension etc. No evidence to suggest that she is having any central nervous system related issues by her history and clinical examination. Oertli she could be having intermittent episodes of atrial fibrillation and we have consulted for a Holter monitor to evaluate this. Also her central cord compression by her herniated disc may be contributing to some of her symptoms and we have cautioned her that she needs to go back to her neurosurgeon to plan for her surgery. She apparently had been reluctant to go forward with that as she was uncertain about the ramifications of that procedure and had not discussed that with the neurosurgeon. Stable at this time with return precautions discussed. Medical Records I reviewed the patient's medical records. MRI report reviewed and confirmed cervical disc disc disease at C5-C6 level. Lab Data I reviewed the patient's lab results. 08/26/22 13:55 08/26/22 13:55 Radiology Impressions Chest X-Ray 08/26/22 13:27 IMPRESSION: Unremarkable chest radiograph. Laboratory Results WBC 9.5 10^3/uL (4.0-10.0) 08/26/22 13:55 RBC 4.73 10^6/uL (4.1-5.3) 08/26/22 13:55 Hgb 14.5 g/dL (11.5-15.3) 08/26/22 13:55 Hct 44.3 % (37.0-47.0) 08/26/22 13:55 MCV 93.7 fl (81-99) 08/26/22 13:55 MCH 30.7 pg (28.0-34.0) 08/26/22 13:55 MCHC 32.7 g/dL (30.0-36.0) 08/26/22 13:55 RDW 13.2 % (12.1-15.1) 08/26/22 13:55 Plt Count 252 10^3/cmm (130-400) 08/26/22 13:55 MPV 9.6 fL (7.4-10.4) 08/26/22 13:55 Neut % (Auto) 66.3 % 08/26/22 13:55 Lymph % (Auto) 22.4 % 08/26/22 13:55 [place] % (Auto) 7.3 % 08/26/22 13:55 Eos % (Auto) 2.4 % 08/26/22 13:55 Baso % (Auto) 1.2 % 08/26/22 13:55 Neut # (Auto) 6.32 10^3/uL (1.8-7.7) 08/26/22 13:55 Lymph # (Auto) 2.1 10^3/uL (0.8-4.8) 08/26/22 13:55 [place] # (Auto) 0.7 10^3/uL (0.2-0.9) 08/26/22 13:55 Eos # (Auto) 0.2 10^3/uL (0.0-0.8) 08/26/22 13:55 Baso # (Auto) 0.1 10^3/uL (0.0-0.1) 08/26/22 13:55 Nucleated RBC % (auto) 0 % 08/26/22 13:55 Nucleated RBCs # 0.0 /100WBC 08/26/22 13:55 Sodium 143 mmol/L (136-145) 08/26/22 13:55 Potassium 4.1 mmol/L (3.5-5.1) 08/26/22 13:55 Chloride 108 mmol/L (98-107) H 08/26/22 13:55 Carbon Dioxide 25 mmol/L (22-29) 08/26/22 13:55 Anion Gap 14.1 (5-19) 08/26/22 13:55 BUN 9 mg/dL (6-20) 08/26/22 13:55 Creatinine 0.6 mg/dL (0.5-0.9) 08/26/22 13:55 GFR Calculation 109.6 mL/min (90-130) 08/26/22 13:55 Glucose 79 mg/dL (65-115) 08/26/22 13:55 Calculated Osmolality 294 mOsm/kg (285-295) 08/26/22 13:55 Calcium 8.8 mg/dL (8.5-10.5) 08/26/22 13:55 Magnesium 2.1 mg/dL (1.7-2.3) 08/26/22 13:55 Total Bilirubin 0.5 mg/dL (0.15-1.2) 08/26/22 13:55 AST 10 U/L (0-32) 08/26/22 13:55 ALT 10 U/L (0-33) 08/26/22 13:55 Alkaline Phosphatase 63 U/L (35-105) 08/26/22 13:55 Total Protein 7.0 g/dL (6.6-8.7) 08/26/22 13:55 Albumin 4.4 g/dL (3.5-5.2) 08/26/22 13:55 Globulin 2.6 g/dL (1.3-4.6) 08/26/22 13:55 EKG Data EKG 1: I personally reviewed and interpreted this EKG as follows: Interpretation: Contemporaneous review of EKG reveals ventricular rate of 69 bpm. Normal IA interval, QRS duration, corrected QT interval. Normal axis. No acute ST-T wave changes noted. Computer generated interpretation: Chest X-Ray 08/26/22 13:27 IMPRESSION: Unremarkable chest radiograph. Discharge Plan Discharge Patient Disposition: Home Clinical Impression: History of atrial fibrillation, Cervical disc disease, Allergic rhinitis, seasonal Condition: Stable Prescriptions: No Action methimazole 5 mg tablet 2.5 mg PO DAILY losartan 50 mg tablet 50 mg PO BID Qty: 90 3RF fluticasone propion-salmeterol [Advair Diskus] 250-50 mcg/dose blister with device 1 inh inhalation BID Super Beets PO PRN Systane Balance 0.6 % drops 1 drp ophthalmic (eye) QID PRN clonidine HCl 0.1 mg tablet 0.1 mg PO BID PRN (Reason: hypertensive emergency) Qty: 180 2RF diltiazem HCl 120 mg capsule,extended release 24hr 120 mg PO BID Qty: 180 1RF hydrochlorothiazide 25 mg tablet 25 mg PO DAILY Qty: 90 1RF Vitamin D3 125 mcg (5,000 unit) Tablet 125 mcg PO QAM levalbuterol tartrate 45 mcg/actuation HFA aerosol inhaler 1 puff INHALATION Q4H PRN (Reason: Wheezing) aspirin 325 mg Tablet,Delayed Release (Dr/Ec) 325 mg PO DAILY Qty: 30 0RF Vitamin C 1,000 mg tablet 1,000 mg PO DAILY Zofran 4 mg tablet 4 mg PO Q6H PRN (Reason: nausea and vomiting) Qty: 15 0RF zinc 50 mg tablet 50 mg PO QAM PRN Discharge Orders: Discharge ED (Routine); Ordered 08/26/22 Ordered By: Isaak Gunn Referrals: Oksana Shelley MD [Primary Care Provider] - 2 weeks Discharge Diet: Usual diet Discharge Activity: Resume usual activity Patient Instructions: Opioid Safety, Pain Management Activity Restrictions/Additional Instructions: Your evaluation in the emergency department was unrevealing as to any any serious cause for your symptoms. Only some of your congestion and other symptoms are likely due to seasonal rhinitis and we recommend using nasal saline spray to help with congestion as well as you may use a nonsedating [id number] antihistamine such as Zyrtec etc. Not take any stimulating antihistamines such as pseudoephedrine etc. as they may affect your heart rate. We are putting a consult in for a repeat heart monitor to ensure that you are having episodes of heart rhythm problems that may be contributing to how you have been feeling. And as we discussed you need to revisit with neurosurgery regarding your proposed procedure as it may be a contributing factor to your ongoing neck pain and numbness. If it anytime you have any worsening symptoms you are welcome to return to the emergency department for reevaluation. 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
--- NOTE | 2022-08-26 13:34 | PC.NURSE ---
Pt hooked up to continuous bedside cardiac monitoring.
[2022-08-26 14:05] LABS: Basophils # 0.1 10^3/uL (0.0-0.1); Basophils % 1.2 %; Eosinophils # 0.2 10^3/uL (0.0-0.8); Eosinophils % 2.4 %; Hematocrit 44.3 % (37.0-47.0); Hemoglobin 14.5 g/dL (11.5-15.3); Lymphocytes # 2.1 10^3/uL (0.8-4.8); Lymphocytes % 22.4 %; Mean Corpuscular HGB Conc 32.7 g/dL (30.0-36.0); Mean Corpuscular Hemoglobin 30.7 pg (28.0-34.0); Mean Corpuscular Volume 93.7 fl (81-99); Mean Platelet Volume 9.6 fL (7.4-10.4); Monocytes # 0.7 10^3/uL (0.2-0.9); Monocytes % 7.3 %; Neutrophils # 6.32 10^3/uL (1.8-7.7); Neutrophils % 66.3 %; Nucleated Red Blood Cells % 0 %; Platelet Count 252 10^3/cmm (130-400); Red Blood Count 4.73 10^6/uL (4.1-5.3); Red Cell Distribution Width 13.2 % (12.1-15.1); White Blood Count 9.5 10^3/uL (4.0-10.0)
[2022-08-26 14:20] LABS: Alanine Aminotransferase 10 U/L (0-33); Albumin Level 4.4 g/dL (3.5-5.2); Alkaline Phosphatase 63 U/L (35-105); Anion Gap 14.1 (5-19); Aspartate Amino Transferase 10 U/L (0-32); Blood Urea Nitrogen 9 mg/dL (6-20); Calcium 8.8 mg/dL (8.5-10.5); Carbon Dioxide 25 mmol/L (22-29); Chloride 108 mmol/L (98-107); Globulin 2.6 g/dL (1.3-4.6); Glomerular Filtration Rate 109.6 mL/min (90-130); Glucose 79 mg/dL (65-115); Magnesium 2.1 mg/dL (1.7-2.3); Osmolality Calculated 294 mOsm/kg (285-295); Potassium 4.1 mmol/L (3.5-5.1); Sodium 143 mmol/L (136-145); Total Bilirubin 0.5 mg/dL (0.15-1.2)
--- NOTE | 2022-08-29 09:43 | DCPLANNER ---
Addendum entered by Chelsi Aguilar 09/18/22 06:57: Patient had a follow up appointment scheduled with heart care - patient did attend appointment Addendum entered by Chelsi Aguilar 08/30/22 10:47: Patient has a follow up appointment scheduled for Monday, September 12, 2022 at 10:00 at heart care. Original Note: manager fixed income had message to schedule an outpatient heart monitor for patient. manager fixed income faxed signed order to centralized scheduling, who will call patient with appointment information.
== END 2022-08-26 15:26 | disposition home or self-care (01) ==
PROVIDERS: Emergency Medicine; Emergency Provider Emergency Medicine; PCP Family Medicine
DX: M50.30 Other cervical disc degeneration, unspecified cervical region (principal); J30.2 Other seasonal allergic rhinitis; Z79.82 Long term (current) use of aspirin; F17.210 Nicotine dependence, cigarettes, uncomplicated; I10 Essential (primary) hypertension
CPT/HCPCS: 36415; 71045; 80053; 83735; 85025; 93005; 99285

== ENCOUNTER 2022-09-02 09:04 | Emergency (ER) | payer OTHER, SELFPAY ==
[2022-09-02 09:18] VITALS: BP 131/88; PULSE 80; RESP 18; TEMP 36.8; O2SAT 97
--- NOTE | 2022-09-02 09:39 | XR_ITS ---
WS: [id number] Portable AP upright chest, 09/02/2022 Clinical Data: dyspnea/cough Comparison: Portable chest, 08/26/2022 Findings: No nodules, masses or effusions are seen. The heart is normal. The pulmonary vascularity is not increased. No pneumonia or pneumothorax is seen. XR/XR chest 1V portable [id number] Impression: Negative chest.
[2022-09-02 10:12] LABS: Basophils # 0.1 10^3/uL (0.0-0.1); Basophils % 0.8 %; Eosinophils # 0.1 10^3/uL (0.0-0.8); Eosinophils % 1.1 %; Hematocrit 45.4 % (37.0-47.0); Hemoglobin 15.2 g/dL (11.5-15.3); Lymphocytes # 2.9 10^3/uL (0.8-4.8); Lymphocytes % 23.5 %; Mean Corpuscular HGB Conc 33.5 g/dL (30.0-36.0); Mean Corpuscular Hemoglobin 31.1 pg (28.0-34.0); Mean Platelet Volume 9.5 fL (7.4-10.4); Monocytes # 1.1 10^3/uL (0.2-0.9); Monocytes % 9.2 %; Neutrophils # 7.92 10^3/uL (1.8-7.7); Neutrophils % 64.9 %; Nucleated Red Blood Cells % 0 %; Platelet Count 246 10^3/cmm (130-400); Red Blood Count 4.88 10^6/uL (4.1-5.3); Red Cell Distribution Width 13.2 % (12.1-15.1); White Blood Count 12.2 10^3/uL (4.0-10.0)
[2022-09-02 10:39] LABS: Alanine Aminotransferase 8 U/L (0-33); Albumin Level 4.5 g/dL (3.5-5.2); Alkaline Phosphatase 61 U/L (35-105); Anion Gap 13.4 (5-19); Aspartate Amino Transferase 8 U/L (0-32); Blood Urea Nitrogen 17 mg/dL (6-20); Calcium 8.9 mg/dL (8.5-10.5); Carbon Dioxide 26 mmol/L (22-29); Chloride 103 mmol/L (98-107); Globulin 2.5 g/dL (1.3-4.6); Glomerular Filtration Rate 109.6 mL/min (90-130); Glucose 91 mg/dL (65-115); Osmolality Calculated 289 mOsm/kg (285-295); Potassium 3.4 mmol/L (3.5-5.1); Sodium 139 mmol/L (136-145); Total Bilirubin 0.3 mg/dL (0.15-1.2)
--- NOTE | 2022-09-02 10:40 | ED_ITS ---
HPI - General Adult General: Chief complaint: General Medical Stated complaint: Head pain, dizzy, vision blurriness Time Seen by Provider: 09/02/22 09:08 Source: patient Mode of arrival: ambulatory History of Present Illness: 41-year-old female presents emergency room complaining of just generally not feeling well little bit of headache dizziness no trauma to the head with pain going on for 3 weeks when she moves her head it makes it worse states she feels uncomfortable from basically her navel. She denies any chest pain or shortness of breath Onset (ago): week(s) (3) Relieving factors: none Exacerbating factors: other (Moving her head) Associated symptoms: Deny chest pain, confusion, cough, diaphoresis, decreased appetite, dyspnea, fevers/chills, headache(s), malaise, nausea, rash, palpitations, seizures, short of breath, syncope, vomiting or weakness Review of Systems Const: Denies: fever(s), chills, malaise or diaphoresis Card: Denies: chest pain, palpitations or syncope Resp: Denies: dyspnea GI: Denies: abdominal pain, nausea or vomiting : Denies: dysuria, urinary frequency or urinary urgency Skin/Breast: Denies: rash Neuro: Denies: headache(s) or confusion PFSH ED PFSH: Medical History Asthma History of Graves' disease History of hyperthyroidism Hypertension Hyperthyroidism Hypothyroidism Migraine headache Smoking Tobacco dependency Surgical History H/O section x 3. H/O laparoscopy (~2010) S/P endometrial ablation (03/27/10) Family History Mother Hypertension Other CAD (coronary artery disease) Diabetes Social History Smoking and tobacco status: current every day smoker cigarettes Packs smoked per day: 1 Alcohol intake: never Substance/Drug Use: never Female Reproductive History: Spontaneous abortions: No Physical Exam Const: GENERAL APPEARANCE: cooperative and comfortable ORIENTATION/CONSCIOUSNESS: Yes awake, Yes oriented to person, Yes oriented to place and Yes oriented to time HENMT: COMMON NORMALS: normocephalic, atraumatic and hearing grossly normal bilaterally HEAD & SCALP: normocephalic and atraumatic Resp: COMMON NORMALS: normal respiratory effort, No retractions, No use of accessory muscles and clear to auscultation bilaterally AUSCULTATION: clear to auscultation bilaterally Cardio: COMMON NORMALS: regular rate, regular rhythm and No murmurs present (Cardio) RATE: regular rate RHYTHM: regular rhythm GI: COMMON NORMALS: Soft to palpation and No hepatosplenomegaly present AUSCULTATION: Yes normoactive bowel sounds PALPATION: Yes Soft to palpation, No Tenderness to palpation present (GI), No Guarding due to palpation present (GI) and Yes No hepatosplenomegaly present Extremity: COMMON NORMALS: normal to inspection, capillary refill normal, no clubbing, cyanosis or edema, no calf tenderness and no pedal edema Neuro: SENSORIUM/ORIENTATION: Yes oriented to person, Yes oriented to place and Yes oriented to time Skin: COMMON NORMALS: no rashes or lesions noted GENERAL SKIN EXAM: no rashes or lesions noted Course Vital Signs: Vital signs: Vital Signs Temperature 98.3 F 09/02/22 09:18 Pulse Rate 70 09/02/22 11:39 Respiratory Rate 16 09/02/22 11:39 Blood Pressure 148/88 09/02/22 11:39 Pulse Oximetry 97 09/02/22 11:39 Oxygen Delivery Me thod Room Air 09/02/22 09:18 MDM - General Adult Medical Decision Making Patient noted that symptoms are worse when she turns her head. Neurologically otherwise intact no focal neurologic deficits are noted. Labs and imaging re viewed. Mild leukocytosis but she has been on prednisone. We will have her use meclizine as needed follow-up with her primary care doctor return if she has further problems. Medical Records I reviewed the patient's medical records. Lab Data I reviewed the patient's lab results. 09/02/22 10:03 09/02/22 10:03 Radiology Impressions Chest X-Ray 09/02/22 09:39 Impression: Negative chest. Laboratory Results WBC 12.2 10^3/uL (4.0-10.0) H 09/02/22 10:03 RBC 4.88 10^6/uL (4.1-5.3) 09/02/22 10:03 Hgb 15.2 g/dL (11.5-15.3) 09/02/22 10:03 Hct 45.4 % (37.0-47.0) 09/02/22 10:03 MCV 93.0 fl (81-99) 09/02/22 10:03 MCH 31.1 pg (28.0-34.0) 09/02/22 10:03 MCHC 33.5 g/dL (30.0-36.0) 09/02/22 10:03 RDW 13.2 % (12.1-15.1) 09/02/22 10:03 Plt Count 246 10^3/cmm (130-400) 09/02/22 10:03 MPV 9.5 fL (7.4-10.4) 09/02/22 10:03 Neut % (Auto) 64.9 % 09/02/22 10:03 Lymph % (Auto) 23.5 % 09/02/22 10:03 [place] % (Auto) 9.2 % 09/02/22 10:03 Eos % (Auto) 1.1 % 09/02/22 10:03 Baso % (Auto) 0.8 % 09/02/22 10:03 Neut # (Auto) 7.92 10^3/uL (1.8-7.7) H 09/02/22 10:03 Lymph # (Auto) 2.9 10^3/uL (0.8-4.8) 09/02/22 10:03 [place] # (Auto) 1.1 10^3/uL (0.2-0.9) H 09/02/22 10:03 Eos # (Auto) 0.1 10^3/uL (0.0-0.8) 09/02/22 10:03 Baso # (Auto) 0.1 10^3/uL (0.0-0.1) 09/02/22 10:03 Nucleated RBC % (auto) 0 % 09/02/22 10:03 Nucleated RBCs # 0.0 /100WBC 09/02/22 10:03 Sodium 139 mmol/L (136-145) 09/02/22 10:03 Potassium 3.4 mmol/L (3.5-5.1) L 09/02/22 10:03 Chloride 103 mmol/L (98-107) 09/02/22 10:03 Carbon Dioxide 26 mmol/L (22-29) 09/02/22 10:03 Anion Gap 13.4 (5-19) 09/02/22 10:03 BUN 17 mg/dL (6-20) 09/02/22 10:03 Creatinine 0.6 mg/dL (0.5-0.9) 09/02/22 10:03 GFR Calculation 109.6 mL/min (90-130) 09/02/22 10:03 Glucose 91 mg/dL (65-115) 09/02/22 10:03 Calculated Osmolality 289 mOsm/kg (285-295) 09/02/22 10:03 Calcium 8.9 mg/dL (8.5-10.5) 09/02/22 10:03 Total Bilirubin 0.3 mg/dL (0.15-1.2) 09/02/22 10:03 AST 8 U/L (0-32) 09/02/22 10:03 ALT 8 U/L (0-33) 09/02/22 10:03 Alkaline Phosphatase 61 U/L (35-105) 09/02/22 10:03 Total Protein 7.0 g/dL (6.6-8.7) 09/02/22 10:03 Albumin 4.5 g/dL (3.5-5.2) 09/02/22 10:03 Globulin 2.5 g/dL (1.3-4.6) 09/02/22 10:03 Urine Color Yellow (Yellow) 09/02/22 10:19 Urine Appearance Clear (CLEAR) 09/02/22 10:19 Urine pH 7 (5-7) 09/02/22 10:19 Ur Specific [place] 1.010 (1.005-1.030) 09/02/22 10:19 Urine Protein Neg (Negative) 09/02/22 10:19 Urine Glucose (UA) Norm (Normal) 09/02/22 10:19 Urine Ketones Negative (Negative) 09/02/22 10:19 Urine Blood 2+ (Negative) H 09/02/22 10:19 Urine Nitrate Negative (Negative) 09/02/22 10:19 Urine Bilirubin Neg (Negative) 09/02/22 10:19 Urine Urobilinogen Neg mg/dL (Negative) 09/02/22 10:19 Ur Leukocyte Esterase Negative (Negative) 09/02/22 10:19 Urine RBC 5-10 /hpf (0-2) H 09/02/22 10:19 Urine WBC 0-4 /hpf (0-5) H 09/02/22 10:19 Ur Squamous Epith Cells 0-4 /hpf (0-5) H 09/02/22 10:19 Amorphous Sediment Not Reportable 09/02/22 10:19 Urine Bacteria 1+ /hpf (NONE) H 09/02/22 10:19 Urine Mucus Trace /hpf 09/02/22 10:19 Discharge Plan Discharge Patient Disposition: Home Clinical Impression: Headache, Labyrinthitis Condition: Stable Prescriptions: New meclizine 25 mg tablet 25 mg PO QID PRN (Reason: dizziness) Qty: 20 0RF No Action methimazole 5 mg tablet 2.5 mg PO DAILY losartan 50 mg tablet 50 mg PO BID Qty: 90 3RF fluticasone propion-salmeterol [Advair Diskus] 250-50 mcg/dose blister with device 1 inh inhalation BID Super Beets PO PRN Systane Balance 0.6 % drops 1 drp ophthalmic (eye) QID PRN clonidine HCl 0.1 mg tablet 0.1 mg PO BID PRN (Reason: hypertensive emergency) Qty: 180 2RF diltiazem HCl 120 mg capsule,extended release 24hr 120 mg PO BID Qty: 180 1RF hydrochlorothiazide 25 mg tablet 25 mg PO DAILY Qty: 90 1RF Vitamin D3 125 mcg (5,000 unit) Tablet 125 mcg PO QAM levalbuterol tartrate 45 mcg/actuation HFA aerosol inhaler 1 puff INHALATION Q4H PRN (Reason: Wheezing) aspirin 325 mg Tablet,Delayed Release (Dr/Ec) 325 mg PO DAILY Qty: 30 0RF Vitamin C 1,000 mg tablet 1,000 mg PO DAILY Zofran 4 mg tablet 4 mg PO Q6H PRN (Reason: nausea and vomiting) Qty: 15 0RF zinc 50 mg tablet 50 mg PO QAM PRN Discharge Orders: Discharge ED (Routine); Ordered 09/02/22 Ordered By: Angel Luis Chin Referrals: Oksana Shelley MD [Primary Care Provider] - Discharge Diet: Usual diet Discharge Activity: Increase activity as tolerated Patient Instructions: Opioid Safety, Pain Management Coding Level of Care Code ED New Car Driver for Jennifer Torrez
[2022-09-02 10:58] LABS: Add Urine Microscopic? YES; Bilirubin Urine Neg (Negative); Blood Urine 2+ (Negative); Glucose Urine UA Norm (Normal); Ketones Urine Negative (Negative); Leukocyte Esterase Urine Negative (Negative); Nitrate Urine Negative (Negative); Protein Urine Neg (Negative); Urine Appearance Clear (CLEAR); Urine Color Yellow (Yellow); Urobilinogen Urine Neg (Negative); pH Urine 7 (5-7)
[2022-09-02 11:00] LABS: Add Urine Culture? No; Bacteria Urine 1+ /hpf; Mucus Urine TRACE /hpf; Squamous Epithelial Cell Urine 0-4 /hpf (0-5); WBC Urine 0-4 /hpf (0-5)
[2022-09-02 11:39] VITALS: BP 148/88; PULSE 70; RESP 16; O2SAT 97
== END 2022-09-02 11:41 | disposition home or self-care (01) ==
PROVIDERS: Emergency Provider Family Medicine; PCP Family Medicine
DX: R51.9 Headache, unspecified (principal); H83.09 Labyrinthitis, unspecified ear; Z79.82 Long term (current) use of aspirin; F17.210 Nicotine dependence, cigarettes, uncomplicated; I10 Essential (primary) hypertension
CPT/HCPCS: 36415; 71045; 80053; 81001; 85025; 99284

== ENCOUNTER 2022-10-15 02:47 | Emergency (ER) | payer OTHER, SELFPAY ==
[2022-10-15 02:56] VITALS: BP 122/94; PULSE 75; RESP 18; TEMP 37.1; O2SAT 96; BMI 32.5
--- NOTE | 2022-10-15 03:00 | XRR_ITS ---
PROCEDURE INFORMATION: Exam: XR Chest Exam date and time: 10/15/2022 3:06 AM Age: 42 years old Clinical indication: Cough TECHNIQUE: Imaging protocol: Radiologic exam of the chest. Views: 1 view. COMPARISON: CR XR chest 1V portable [id number] 09/02/2022 9:47 AM FINDINGS: Lungs: Mildly hyperaerated lungs consistent with deep inspiratory effort vs reactive airway disease vs mild COPD . Pleural spaces: Unremarkable. No pleural effusion. No pneumothorax. Heart/Mediastinum: Unremarkable. No cardiomegaly. Bones/joints: Unremarkable. XR/XR chest 1V portable [id number] IMPRESSION: Mildly hyperaerated lungs consistent with deep inspiratory effort vs reactive airway disease vs mild COPD .
--- NOTE | 2022-10-15 03:01 | ECG_ITS ---
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 Measurements Intervals [place] Rate: 75 P: 61 SC: 146 QRS: 40 QRSD: 97 T: 51 QT: 378 QTc: 423 Interpretive Statements SINUS RHYTHM Compared to ECG 08/26/2022 13:59:42 No significant changes Electronically Signed On 10-15-2022 6:49:02 CDT by Gissell La M.D. [email or web address]
--- NOTE | 2022-10-15 03:04 | W.ED.GENADLT ---
HPI - General Adult General: Chief complaint: General Medical Stated complaint: Nose Bleed\Headache\N\Leg Hurts Time Seen by Provider: 10/15/22 02:49 Source: patient Mode of arrival: ambulatory Limitations: no limitations History of Present Illness: 41-year-old female is here with multiple complaints. She states that throughout the day she has had a slight nosebleed that is since resolved. She states she is also had headache she has had some nausea she states she had a sore throat she also had cough bilateral leg pains. She denies any fevers denies any shortness of breath. She states that she has felt weak as well. Associated symptoms: Reports headache(s), malaise and nausea; Deny chest pain, dyspnea, rash or vomiting Review of Systems Const: Reports: body aches, fatigue and malaise; Denies: fever(s) or chills Eyes: Denies: eye discomfort ENMT: Reports: throat pain and epistaxis; Denies: dental pain Card: Denies: chest pain Resp: Reports: non-productive cough and pain on inspiration; Denies: dyspnea GI: Reports: nausea; Denies: abdominal pain or vomiting Musc: Denies: neck pain or back pain Skin/Breast: Denies: rash Neuro: Reports: headache(s) PFSH ED PFSH: Medical History Asthma History of Graves' disease History of hyperthyroidism Hypertension Hyperthyroidism Hypothyroidism Migraine headache Smoking Tobacco dependency Surgical History H/O section x 3. H/O laparoscopy (~2010) S/P endometrial ablation (03/27/10) Family History Mother Hypertension Other CAD (coronary artery disease) Diabetes Social History Smoking and tobacco status: current every day smoker cigarettes Packs smoked per day: 1 Alcohol intake: never Substance/Drug Use: never Female Reproductive History: Spontaneous abortions: No Physical Exam Const: COMMON NORMALS: no acute distress, patient oriented x3 and healthy appearing HENMT: COMMON NORMALS: normocephalic and atraumatic HEAD & SCALP: normocephalic and atraumatic MOUTH: Normal oral and palatal mucosa present OTHER: Dry skin noted in right nare no active bleeding Neck/C-Spine: COMMON NORMALS: full ROM and supple Chest: COMMONS NORMALS: normal inspection of the chest and normal palpation of entire chest wall Resp: COMMON NORMALS: normal respiratory effort, No retractions, No use of accessory muscles and clear to auscultation bilaterally AUSCULTATION: clear to auscultation bilaterally Cardio: COMMON NORMALS: regular rate, regular rhythm and No murmurs present (Cardio) RATE: regular rate RHYTHM: regular rhythm GI: COMMON NORMALS: Normal to inspection, nondistended, normoactive bowel sounds present, Soft to palpation, non-tender and no masses PALPATION: Yes Soft to palpation Extremity: COMMON NORMALS: normal to inspection and full ROM Neuro: COMMON NORMALS: patient oriented x3, moves all extremities and no focal motor deficits Psych: COMMON NORMALS: mental status grossly normal, Normal thought process present and cooperative THOUGHT PROCESS: Normal thought process present Skin: COMMON NORMALS: no rashes or lesions noted and no wounds GENERAL SKIN EXAM: no rashes or lesions noted Course Vital Signs: Vital signs: Vital Signs Temperature 98.7 F 10/15/22 02:56 Pulse Rate 69 10/15/22 04:25 Respiratory Rate 18 10/15/22 04:25 Blood Pressure 127/74 10/15/22 04:25 Pulse Oximetry 97 10/15/22 04:25 Oxygen Delivery Me thod Room Air 10/15/22 04:24 MDM - General Adult Medical Decision Making Patient presents for multiple complaints she did have a nosebleed she is to loop her nose that she does have dried nare to the right naris headache body aches cough all her blood work here is normal no signs of infection she stable for discharge she will follow PCP return if worsening Medical Records I reviewed the patient's medical records. Lab Data I reviewed the patient's lab results. 10/15/22 03:15 10/15/22 03:15 Radiology Impressions Chest X-Ray 10/15/22 03:00 IMPRESSION: Mildly hyperaerated lungs consistent with deep inspiratory effort vs reactive airway disease vs mild COPD . Laboratory Results WBC 9.2 10^3/uL (4.0-10.0) 10/15/22 03:15 RBC 4.53 10^6/uL (4.1-5.3) 10/15/22 03:15 Hgb 13.9 g/dL (11.5-15.3) 10/15/22 03:15 Hct 42.0 % (37.0-47.0) 10/15/22 03:15 MCV 92.7 fl (81-99) 10/15/22 03:15 MCH 30.7 pg (28.0-34.0) 10/15/22 03:15 MCHC 33.1 g/dL (30.0-36.0) 10/15/22 03:15 RDW 12.9 % (12.1-15.1) 10/15/22 03:15 Plt Count 248 10^3/cmm (130-400) 10/15/22 03:15 MPV 10.3 fL (7.4-10.4) 10/15/22 03:15 Neut % (Auto) 55.2 % 10/15/22 03:15 Lymph % (Auto) 32.7 % 10/15/22 03:15 [place] % (Auto) 7.3 % 10/15/22 03:15 Eos % (Auto) 3.5 % 10/15/22 03:15 Baso % (Auto) 1.1 % 10/15/22 03:15 Neut # (Auto) 5.05 10^3/uL (1.8-7.7) 10/15/22 03:15 Lymph # (Auto) 3.0 10^3/uL (0.8-4.8) 10/15/22 03:15 [place] # (Auto) 0.7 10^3/uL (0.2-0.9) 10/15/22 03:15 Eos # (Auto) 0.3 10^3/uL (0.0-0.8) 10/15/22 03:15 Baso # (Auto) 0.1 10^3/uL (0.0-0.1) 10/15/22 03:15 Nucleated RBC % (auto) 0 % 10/15/22 03:15 Nucleated RBCs # 0.0 /100WBC 10/15/22 03:15 Sodium 142 mmol/L (136-145) 10/15/22 03:15 Potassium 3.9 mmol/L (3.5-5.1) 10/15/22 03:15 Chloride 108 mmol/L (98-107) H 10/15/22 03:15 Carbon Dioxide 23 mmol/L (22-29) 10/15/22 03:15 Anion Gap 14.9 (5-19) 10/15/22 03:15 BUN 7 mg/dL (6-20) 10/15/22 03:15 Creatinine 0.4 mg/dL (0.5-0.9) L 10/15/22 03:15 GFR Calculation 174.2 mL/min (90-130) H 10/15/22 03:15 Glucose 116 mg/dL (65-115) H 10/15/22 03:15 Calculated Osmolality 293 mOsm/kg (285-295) 10/15/22 03:15 Calcium 8.6 mg/dL (8.5-10.5) 10/15/22 03:15 Total Bilirubin 0.5 mg/dL (0.15-1.2) 10/15/22 03:15 AST 12 U/L (0-32) 10/15/22 03:15 ALT 7 U/L (0-33) 10/15/22 03:15 Alkaline Phosphatase 69 U/L (35-105) 10/15/22 03:15 Total Protein 6.4 g/dL (6.6-8.7) L 10/15/22 03:15 Albumin 3.9 g/dL (3.5-5.2) 10/15/22 03:15 Globulin 2.5 g/dL (1.3-4.6) 10/15/22 03:15 SARS-CoV-2 Ag (Rapid) negative (Negative) 10/15/22 03:27 EKG Data EKG 1: I personally reviewed and interpreted this EKG as follows: EKG interpretation date: 10/15/22 EKG interpretation time: 03:30 Interpretation: nsr hr [address] or t wave abnormalities qrs 97 qtc 406 Computer generated interpretation: Chest X-Ray 10/15/22 03:00 IMPRESSION: Mildly hyperaerated lungs consistent with deep inspiratory effort vs reactive airway disease vs mild COPD . Discharge Plan Discharge Patient Disposition: Home Clinical Impression: Epistaxis, Headache Condition: Stable Prescriptions: No Action methimazole 5 mg tablet 2.5 mg PO DAILY losartan 50 mg tablet 50 mg PO BID Qty: 90 3RF fluticasone propion-salmeterol [Advair Diskus] 250-50 mcg/dose blister with device 1 inh inhalation BID Super Beets PO PRN Systane Balance 0.6 % drops 1 drp ophthalmic (eye) QID PRN diltiazem HCl 120 mg capsule,extended release 24hr 120 mg PO BID Qty: 10 0RF clonidine HCl 0.1 mg tablet 0.1 mg PO BID PRN (Reason: hypertensive emergency) Qty: 180 2RF diltiazem HCl 120 mg capsule,extended release 24hr 120 mg PO BID Qty: 180 1RF hydrochlorothiazide 25 mg tablet 25 mg PO DAILY Qty: 90 1RF Vitamin D3 125 mcg (5,000 unit) Tablet 125 mcg PO QAM levalbuterol tartrate 45 mcg/actuation HFA aerosol inhaler 1 puff INHALATION Q4H PRN (Reason: Wheezing) aspirin 325 mg Tablet,Delayed Release (Dr/Ec) 325 mg PO DAILY Qty: 30 0RF Vitamin C 1,000 mg tablet 1,000 mg PO DAILY Zofran 4 mg tablet 4 mg PO Q6H PRN (Reason: nausea and vomiting) Qty: 15 0RF zinc 50 mg tablet 50 mg PO QAM PRN meclizine 25 mg tablet 25 mg PO QID PRN (Reason: dizziness) Qty: 20 0RF Discharge Orders: Discharge ED (Routine); Ordered 10/15/22 Ordered By: Rosaura Mcbride Referrals: Oksana Shelley MD [Primary Care Provider] - 1-3 days Discharge Diet: Advance as tolerated Discharge Activity: Resume usual activity Patient Instructions: Acute Headache (ED), Epistaxis - Adult Coding Level of Care Code 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
[2022-10-15 03:23] LABS: Basophils # 0.1 10^3/uL (0.0-0.1); Basophils % 1.1 %; Eosinophils # 0.3 10^3/uL (0.0-0.8); Eosinophils % 3.5 %; Hemoglobin 13.9 g/dL (11.5-15.3); Lymphocytes % 32.7 %; Mean Corpuscular HGB Conc 33.1 g/dL (30.0-36.0); Mean Corpuscular Hemoglobin 30.7 pg (28.0-34.0); Mean Corpuscular Volume 92.7 fl (81-99); Mean Platelet Volume 10.3 fL (7.4-10.4); Monocytes # 0.7 10^3/uL (0.2-0.9); Monocytes % 7.3 %; Neutrophils # 5.05 10^3/uL (1.8-7.7); Neutrophils % 55.2 %; Nucleated Red Blood Cells % 0 %; Platelet Count 248 10^3/cmm (130-400); Red Blood Count 4.53 10^6/uL (4.1-5.3); Red Cell Distribution Width 12.9 % (12.1-15.1); White Blood Count 9.2 10^3/uL (4.0-10.0)
[2022-10-15] MEDS: diphenhydrAMINE 50 mg/mL SDV 1mL IVP (03:27)
[2022-10-15] MEDS: metoclopramide 5 mg/mL SDV 2 mL 10 MG IVP (03:27)
[2022-10-15] MEDS: sodium chloride 0.9% 1,000 ML 999 ML IV (03:28)
[2022-10-15 03:34] LABS: Alanine Aminotransferase 7 U/L (0-33); Albumin Level 3.9 g/dL (3.5-5.2); Alkaline Phosphatase 69 U/L (35-105); Blood Urea Nitrogen 7 mg/dL (6-20); Calcium 8.6 mg/dL (8.5-10.5); Carbon Dioxide 23 mmol/L (22-29); Chloride 108 mmol/L (98-107); Globulin 2.5 g/dL (1.3-4.6); Glomerular Filtration Rate 174.2 mL/min (90-130); Glucose 116 mg/dL (65-115); Osmolality Calculated 293 mOsm/kg (285-295); Sodium 142 mmol/L (136-145); Total Bilirubin 0.5 mg/dL (0.15-1.2); Total Protein 6.4 g/dL (6.6-8.7)
[2022-10-15 03:36] LABS: Anion Gap 14.9 (5-19); Aspartate Amino Transferase 12 U/L (0-32); Potassium 3.9 mmol/L (3.5-5.1)
[2022-10-15 03:51] LABS: Slide Review Slide Review Perform
[2022-10-15 04:01] LABS: SARS Covid-2 Antigen negative (Negative)
[2022-10-15 04:24] VITALS: BP 127/74; PULSE 77; RESP 21; O2SAT 97
[2022-10-15 04:25] VITALS: BP 127/74; PULSE 69; RESP 18; O2SAT 97
== END 2022-10-15 04:30 | disposition home or self-care (01) ==
PROVIDERS: Emergency Provider Emergency Medicine; PCP Family Medicine
DX: R04.0 Epistaxis (principal); R51.9 Headache, unspecified; Z79.82 Long term (current) use of aspirin; Z20.822 Contact with and (suspected) exposure to COVID-19; I10 Essential (primary) hypertension; F17.210 Nicotine dependence, cigarettes, uncomplicated
CPT/HCPCS: 71045; 80053; 85025; 87426; 93005; 96374; 96375; 99285; J1200; J2765; J7030

== ENCOUNTER 2022-11-18 09:02 | Outpatient (CLI) | payer OTHER, SELFPAY ==
--- NOTE | 2022-11-18 09:17 | MR_ITS ---
WS: [id number] MRI BRAIN WITH AND WITHOUT CONTRAST HISTORY: ANESTHESIA OF SKIN COMPARISON: 04/14/2016 TECHNIQUE: Multiplanar imaging performed through the brain with MultiHance 18 ml's IV. No acute infarcts are seen. Chery-white matter differentiation is well preserved. Normal appearance of the pituitary gland and optic chiasm. No susceptibility artifacts or prior lacunar infarcts. Ventricles and extra-axial spaces are normal. Clivus and pituitary gland are normal. Visualized posterior fossa and brainstem are also normal. Postcontrast images are negative for masses or vascular malformations. Dural venous sinuses are normal. Paranasal sinuses: Moderate size RIGHT maxillary sinus mucus retention cyst. No air-fluid levels. Mastoid air cells: Normal. Calvarium and scalp: Normal. IMPRESSION: 1. Normal MRI brain with contrast. 2. No abnormality near the optic chiasm or the occipital lobes. 3. No mass or hemorrhage.
[2022-11-18] MEDS: gadobenate dimeglumine 20 mL vial IV (11:38)
== END 2022-11-18 09:03 | disposition home or self-care (01) ==
PROVIDERS: PCP Family Medicine; Visit Provider Psychiatry & Neurology Epilepsy
DX: R20.0 Anesthesia of skin (principal)
CPT/HCPCS: 70553; A9577

== ENCOUNTER → 2022-11-25 11:06 | Outpatient (BNVA) | payer OTHER, SELFPAY | PROVIDERS: PCP Family Medicine; Visit Provider Nurse Practitioner Family | DX: E05.90 Thyrotoxicosis, unspecified without thyrotoxic crisis or storm (principal); R53.83 Other fatigue; R20.0 Anesthesia of skin; R20.2 Paresthesia of skin; I10 Essential (primary) hypertension; I48.91 Unspecified atrial fibrillation; R60.0 Localized edema | CPT/HCPCS: 80048; 82306; 83880 ==

== ENCOUNTER 2022-12-28 10:57 | Emergency (ER) | payer OTHER, SELFPAY ==
--- NOTE | 2022-12-28 11:07 | XR_ITS ---
WS: [id number] EXAMINATION: XR knee RT 3V* [id number] REASON FOR EXAM: pain COMPARISON: None available. ORDER DATE: 12/28/2022 11:08 AM FINDINGS: There is no sign of any acute osseous or articular abnormality. There are no specific soft tissue abn ormalities. IMPRESSION: No acute abnormality
[2022-12-28 11:36] VITALS: BP 128/85; PULSE 76; RESP 18; TEMP 36.9; O2SAT 98; BMI 31.6
--- NOTE | 2022-12-28 11:51 | ED_ITS ---
HPI - Extremity Injury (Lower) General: Chief Complaint: Extremity Problem,Nontraumatic Stated Complaint: right knee pain Time Seen by Provider: 12/28/22 11:41 Source: patient Mode of arrival: ambulatory Limitations: no limitations History of Present Illness: Patient is a 42-year-old female here for evaluation of a right knee injury. Patient states she was walking up/down stairs yesterday when she heard a pop to the right knee. Patient states she is having trouble bearing weight secondary to pain. She does feel like knee joint is swollen she has not noticed any redness or warmth. No lower extremity swelling or calf pain. Denies numbness, tingling, loss of sensation. MD complaint: knee injury Onset (ago): day(s) (yesterday) Injury: Right: knee Place: home Severity: moderate Relieving factors: immobilization Exacerbating factors: weight bearing Associated symptoms: Reports inability to bear weight Other symptoms: none Review of Systems Card: Denies: chest pain Resp: Denies: dyspnea Musc: Reports: joint pain (R knee) and joint swelling (R knee); Denies: neck pain, back pain, extremity pain, extremity swelling, joint redness or joint warmth Neuro: Denies: numbness in extremities, weakness in extremities or sensory changes PFSH ED PFSH: Medical History Asthma History of Graves' disease History of hyperthyroidism Hypertension Hyperthyroidism Hypothyroidism Migraine headache Smoking Tobacco dependency Surgical History H/O section x 3. H/O laparoscopy (~2010) S/P endometrial ablation (03/27/10) Family History Mother Hypertension Other CAD (coronary artery disease) Diabetes Social History Smoking and tobacco status: current every day smoker cigarettes Packs smoked per day: 1 Alcohol intake: never Substance/Drug Use: never Female Reproductive History: Spontaneous abortions: No Physical Exam Const: COMMON NORMALS: no acute distress, patient oriented x3, no limitations, alert and well nourished Extremity: COMMON NORMALS: full ROM, capillary refill normal, no clubbing, cyanosis or edema, no calf tenderness and no pedal edema GENERAL: Yes normal exam except as noted RIGHT LOWER EXTREMITY: Yes knee joint (TTP posterior medial; no obvious effusion) Right knee: Yes ROM (normal), Yes neurovascular exam (normal) and Yes other (no joint laxity noted; no pain with valgus/varus stress) Neuro: COMMON NORMALS: patient oriented x3, moves all extremities, no focal motor deficits and no sensory deficits noted SENSORIUM/ORIENTATION: Yes alert Course Vital Signs: Vital signs: Vital Signs Temperature 98.4 F 12/28/22 11:36 Pulse Rate 76 12/28/22 11:36 Respiratory Rate 18 12/28/22 11:36 Blood Pressure 128/85 12/28/22 11:36 Pulse Oximetry 98 12/28/22 11:36 Oxygen Delivery Me thod Room Air 12/28/22 11:36 MDM - Extremity Injury (Lower) Medical Decision Making XE negative. Will MO wrap/crutches with instructions for weightbearing as tolerated. RICE therapy discussed. She can follow-up with primary care next week if symptoms do not seem to be improving. Return to ED precautions given. All radiology interpretation(s) finalized by discharge Discharge Plan Discharge Patient Disposition: Home Clinical Impression: Injury of right knee Qualifiers: Encounter type: initial encounter Qualified Code(s): S89.91XA - Unspecified injury of right lower leg, initial encounter Condition: Stable Prescriptions: New ibuprofen 800 mg tablet 800 mg PO Q8H PRN (Reason: pain) Qty: 20 0RF Medrol (Eh) 4 mg tablets,dose pack See Rx Instructions .ROUTE .COMPLEX Qty: 21 0RF Rx Instructions: orally per package directions No Action methimazole 5 mg tablet 2.5 mg PO DAILY fluticasone propion-salmeterol [Advair Diskus] 250-50 mcg/dose blister with device 1 inh inhalation BID Super Beets PO PRN Systane Balance 0.6 % drops 1 drp ophthalmic (eye) QID PRN gabapentin 100 mg capsule 100 mg PO DAILY clonidine HCl 0.1 mg tablet 0.1 mg PO BID PRN (Reason: hypertensive emergency) Qty: 180 2RF diltiazem HCl 120 mg capsule,extended release 24hr 120 mg PO BID Qty: 180 1RF hydrochlorothiazide 25 mg tablet 25 mg PO DAILY Qty: 90 1RF losartan 50 mg tablet See Rx Instructions .ROUTE .COMPLEX Qty: 120 0RF Dose Instruction: Take 1 tablet by mouth twice daily Rx Instructions: Take 1 tablet by mouth twice daily Vitamin D3 125 mcg (5,000 unit) Tablet 125 mcg PO QAM levalbuterol tartrate 45 mcg/actuation HFA aerosol inhaler 1 puff INHALATION Q4H PRN (Reason: Wheezing) aspirin 325 mg Tablet,Delayed Release (Dr/Ec) 325 mg PO DAILY Qty: 30 0RF Vitamin C 1,000 mg tablet 1,000 mg PO DAILY Zofran 4 mg tablet 4 mg PO Q6H PRN (Reason: nausea and vomiting) Qty: 15 0RF zinc 50 mg tablet 50 mg PO QAM PRN meclizine 25 mg tablet 25 mg PO QID PRN (Reason: dizziness) Qty: 20 0RF Discharge Orders: Discharge ED (Routine); Ordered 12/28/22 Ordered By: Katty Mendoza Referrals: Oksana Shelley MD [Primary Care Provider] - Patient Instructions: RICE Therapy Activity Restrictions/Additional Instructions: As we discussed weightbearing as tolerated. You may ice and elevate the extremity. If no improvement over the next week please follow-up with your primary care provider for further evaluation/treatment. 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
== END 2022-12-28 12:20 | disposition home or self-care (01) ==
PROVIDERS: Emergency Provider Physician Assistant; PCP Family Medicine
DX: S89.91XA Unspecified injury of right lower leg, initial encounter (principal); Z79.82 Long term (current) use of aspirin; I10 Essential (primary) hypertension; F17.210 Nicotine dependence, cigarettes, uncomplicated; X58.XXXA Exposure to other specified factors, initial encounter
CPT/HCPCS: 73562; 99283; E0114

== ENCOUNTER 2023-01-11 06:00 | Outpatient (CLI) | payer OTHER, SELFPAY | END 2023-01-11 23:59 | disposition home or self-care (01) | LOC: SPT 03-13 12:38 | PROVIDERS: PCP Family Medicine; Visit Provider Specialist | DX: Z46.89 Encounter for fitting and adjustment of other specified devices (principal); S83.91XD Sprain of unspecified site of right knee, subsequent encounter; X58.XXXD Exposure to other specified factors, subsequent encounter | CPT/HCPCS: L1812 ==

== ENCOUNTER → 2023-01-11 13:41 | Outpatient (BNVA) | payer OTHER, SELFPAY | PROVIDERS: PCP Family Medicine; Visit Provider Specialist | DX: S89.91XA Unspecified injury of right lower leg, initial encounter; X58.XXXA Exposure to other specified factors, initial encounter | CPT/HCPCS: 73560; 73565 ==

== ENCOUNTER 2023-01-23 13:44 | Outpatient (RCR) | payer OTHER, SELFPAY | END 2023-01-24 23:59 | disposition home or self-care (01) | LOC: SPT 13:44 | PROVIDERS: PCP Family Medicine; Visit Provider Specialist | DX: S83.501D Sprain of unspecified cruciate ligament of right knee, subsequent encounter (principal); X58.XXXD Exposure to other specified factors, subsequent encounter | CPT/HCPCS: 97161 ==

== ENCOUNTER 2023-01-25 06:00 | Outpatient (RCR) | payer OTHER, SELFPAY | END 2023-02-23 23:59 | disposition home or self-care (01) | LOC: SPT 06:00 | PROVIDERS: PCP Family Medicine; Visit Provider Specialist | DX: S83.501D Sprain of unspecified cruciate ligament of right knee, subsequent encounter (principal) | CPT/HCPCS: 97110 ==

== ENCOUNTER 2023-02-10 09:09 | Outpatient (CLI) | payer OTHER, SELFPAY ==
--- NOTE | 2023-02-10 09:11 | MM_ITS ---
WS: [id number] VIEWS: MLO and CC views both breasts. 3D digital tomosynthesis is also included in this exam. Comparison made with prior exam of 06/14/2018, 01/15/2020, 11/19/2021.. Findings: A 1 cm lobulated nodule in the lateral RIGHT breast at about 9:00 mid depth appears slightly more pro minent than noted previously. There are additional scattered nodules in both breasts which are stable . No architectural distortion or suspicious calcification in either breast. Compression spot images w ith tomography and regional ultrasound would be recommended for further work-up. There are scattered areas of fibroglandular density Impression: MM/[place] [id number] BI-RADS: 0-Incomplete: Need additional imaging evaluation FOLLOW-UP: See Report This mammogram was also analyzed by the Computer Aided Detection System R2 Imag e Real Estate Development Manager.
== END 2023-02-10 09:10 | disposition home or self-care (01) ==
LOC: RAD 09:09
PROVIDERS: PCP Family Medicine; Visit Provider Family Medicine
DX: Z12.31 Encounter for screening mammogram for malignant neoplasm of breast (principal)
CPT/HCPCS: 77063; 77067

== ENCOUNTER 2023-04-14 09:50 | Outpatient (CLI) | payer OTHER, SELFPAY ==
--- NOTE | 2023-04-14 10:11 | MM_ITS ---
WS: [id number] VIEWS: MLO, CC, and ML views of the RIGHT breast. 3D digital tomosynthesis is also included in this exam. Comparison made with prior exam of 02/10/2023.. Findings: Compression spot images with tomography again demonstrate a bilobulated nodule at about the 9 o'clock position in the RIGHT breast which is slightly more prominent than noted on previous mammograms. Reg ional ultrasound would be suggested for further work-up. There are several additional stable appearin g nodules in the RIGHT breast. No architectural distortion or suspicious calcification. Scattered fib roglandular densities in the RIGHT breast. Impression: MM/[place] [id number] BI-RADS: 0-Incomplete: Need additional imaging evaluation FOLLOW-UP: See Report This mammogram was also analyzed by the Computer Aided Detection System R2 Imag e Wheel Braider.
--- NOTE | 2023-04-14 10:11 | US_ITS ---
WS: [id number] Exam: US breast RT limited* [id number] Date/Time of Exam: 04/14/2023 10:53 AM Reason For Exam: ABNORMAL MAMMO Regional ultrasound of the RIGHT breast at the 9 o'clock position is performed. At the 9 o'clock position there is a small bilobulated cyst that measures 0.63 x 0.83 x 0.35 cm. No s uspicious solid mass or nodule was identified in this region. IMPRESSION: 1. 0.63 x 0.83 x 0.35 cm bilobulated cyst at the 9 o'clock position in the RIGHT breast corresponds t o the abnormality described on recent mammography. 2. No findings suspicious for malignancy in this region. BI-RADS Category 2. Recommendations: Continue yearly screening mammography.
== END 2023-04-14 09:51 | disposition home or self-care (01) ==
LOC: RAD 09:50
PROVIDERS: PCP Family Medicine; Visit Provider Family Medicine
DX: R92.8 Other abnormal and inconclusive findings on diagnostic imaging of breast (principal); N60.01 Solitary cyst of right breast; R92.321 Mammographic fibroglandular density, right breast
CPT/HCPCS: 76642; 77061; G0279

== ENCOUNTER 2024-04-20 21:21 | Emergency (ER) | payer OTHER, SELFPAY ==
[2024-04-20 22:00] VITALS: BP 146/94; PULSE 79; RESP 18; TEMP 36.7; O2SAT 97
--- NOTE | 2024-04-20 22:18 | CTR_ITS ---
PROCEDURE INFORMATION: Exam: CT Chest With Contrast; Diagnostic Exam date and time: 04/20/2024 10:35 PM Age: 43 years old Clinical indication: Patient HX: C/O persistent upper back pain since having egd perfromed yesterday. ; Additional info: Upper back pain post egd/esophageal dilitation yesterday TECHNIQUE: Imaging protocol: Diagnostic computed tomography of the chest with contrast. Radiation optimization: All CT scans at this facility use at least one of these dose optimization techniques: automated exposure control; mA and/or kV adjustment per patient size (includes targeted exams where dose is matched to clinical indication); or iterative reconstruction. Contrast material: OMNI 350; Contrast volume: 100 ml; Contrast route: INTRAVENOUS (IV); COMPARISON: CR XR chest 1V portable [id number] 10/15/2022 3:06 AM RADIATION DOSE METRICS: Total DLP (mGy-cm): 519.8 FINDINGS: Lungs: No pulmonary consolidation. Right pulmonary granulomata. No pulmonary mass or suspicious pulmonary nodule. Pleural spaces: No pleural effusion or pneumothorax. Heart: Heart size is within normal limits. There is no pericardial effusion or pericardial thickening. Coronary arteries: No coronary artery calcification. Mediastinal space: No evidence of pneumomediastinum. Lymph nodes: No enlarged lymph nodes are identified. Calcified subcarinal and right hilar lymph nodes Vasculature: The aorta is normal in course and caliber. No significant atherosclerotic calcifications are present. Bones/joints: No acute osseous abnormalities are seen. Soft tissues: The soft tissues are within normal limits. CT/CT chest w con* [id number] IMPRESSION: 1. No acute cardiopulmonary disease. 2. Old granulomatous disease.
[2024-04-20] MEDS: iohexol 350 mg/mL 500 mL Btl (per mL) IV (22:38)
[2024-04-20 22:58] VITALS: O2SAT 96
[2024-04-20 23:00] VITALS: BP 119/87; PULSE 81; O2SAT 95
[2024-04-20 23:15] VITALS: O2SAT 94
--- NOTE | 2024-04-20 23:23 | ED_ITS ---
HPI - Back Pain/Injury General: Chief Complaint: Back Pain/Injury Stated Complaint: upper Gi yesterday severe bk pain since Time Seen by Provider: 04/20/24 22:06 History of Present Illness: 43-year-old old female who had upper end oscopy yesterday. She does not know if any biopsies were taken. She seemed to do well afterwards until this afternoon, when she developed significant upper back pain. She is not short of breath. Pain is not necessarily worse with deep breathing. Pain is across her mid back. No fever. No cough. No vomiting. Related Data Home Medications Medication Instructions Recorded Confirmed cholecalciferol (vitamin D3) 125 125 mcg PO QAM 01/11/21 01/30/24 mcg (5,000 unit) tablet (Vitamin D3) levalbuterol tartrate 45 1 puff inhalation Q4H PRN Wheezing 01/11/21 01/30/24 mcg/actuation aerosol inhaler methimazole 5 mg tablet 2.5 mg PO DAILY 03/09/22 01/30/24 fluticasone 250 mcg-salmeterol 50 1 inh inhalation BID 05/27/22 01/30/24 mcg/dose blistr powdr for inhalation (Advair Diskus) ascorbic acid (vitamin C) 1,000 mg 1,000 mg PO DAILY 06/20/22 01/30/24 tablet (Vitamin C) propylene glycol 0.6 % eye drops 1 drp ophthalmic (eye) QID PRN 06/20/22 01/30/24 (Systane Balance) gabapentin 100 mg capsule 100 mg PO DAILY 11/25/22 01/30/24 aspirin 81 mg tablet,delayed 81 mg PO DAILY 06/09/23 01/30/24 release (Adult Low Dose Aspirin) Previous Rx's Medication Instructions Recorded diltiazem HCl 120 mg 120 mg PO BID #180 caps 04/22/22 capsule,extended release 24 hr hydrochlorothiazide 25 mg tablet 25 mg PO DAILY #90 tabs 06/20/22 meclizine 25 mg tablet 25 mg PO QID PRN dizziness #20 tabs 09/02/22 ibuprofen 800 mg tablet 800 mg PO Q8H PRN pain #20 tabs 12/28/22 Hinged Knee Brace #1 ea 01/11/23 losartan 50 mg tablet See Rx Instructions .Route 06/09/23 .COMPLEX #180 tabs nystatin 100,000 unit/mL oral 400,000 unit (4 mL) PO QID 10 days 08/12/23 suspension #160 mL amoxicillin 875 mg-potassium 1 tab PO BID 10 days #20 tabs 01/30/24 clavulanate 125 mg tablet methylprednisolone 4 mg tablets in See Rx Instructions PO PER PKG DIR 01/30/24 a dose pack (Medrol (Eh)) #21 ea Allergies Allergy/AdvReac Type Severity Reaction Status Date / Time acetaminophen [From [place]] Allergy ADR-Itching Verified 04/20/24 22:03 azithromycin Allergy ADR-Vomitin Verified 04/20/24 22:03 g clindamycin Allergy ADR-Vomitin Verified 04/20/24 22:03 g hydrocodone [From [place]] Allergy ADR-Itching Verified 04/20/24 22:03 narcotics Allergy ADR-Itching Uncoded 04/20/24 22:03 PFSH ED PFSH: Medical History Hyperthyroidism Tobacco dependency Asthma History of hyperthyroidism Smoking Hypertension Migraine headache Hypothyroidism History of Graves' disease Surgical History H/O laparoscopy (~2010) S/P endometrial ablation (03/27/10) H/O section x 3. Family History Mother Hypertension Other CAD (coronary artery disease) Diabetes Social History Smoking and tobacco/nicotine status: current every day tobacco/nicotine user cigarettes Packs smoked per day: 1 Alcohol intake: never Substance/Drug Use: never Female Reproductive History: Spontaneous abortions: No Physical Exam Const: COMMON NORMALS: no acute distress GENERAL APPEARANCE: cooperative; not ill appearing and not frail appearing HENMT: COMMON NORMALS: normocephalic, atraumatic and Normal external nose present HEAD & SCALP: normocephalic and atraumatic FACE & SINUS: normal facial exam and face symmetric NOSE: Normal external nose present Eye: COMMON NORMALS: Equal, round and reactive pupils present and EOMs intact bilaterally PUPIL: Yes Equal, round and reactive pupils present Neck/C-Spine: GENERAL: Yes trachea midline Chest: CHEST: Yes Symmetrical chest wall rise Resp: COMMON NORMALS: normal respiratory effort, No retractions, No use of accessory muscles and clear to auscultation bilaterally AUSCULTATION: clear to auscultation bilaterally Cardio: COMMON NORMALS: regular rate and regular rhythm RATE: regular rate RHYTHM: regular rhythm GI: COMMON NORMALS: Normal to inspection, nondistended, normoactive bowel sounds present Extremity: COMMON NORMALS: no pedal edema Neuro: SARATH COMA SCALE: document GCS findings Sarath coma scale eye opening: Spontaneous Sarath coma scale verbal response: Orientated [place] coma scale motor response: Obey commands Sarath coma scale total score: 15 SENSORY EXAM: Yes extremities (intact) Psych: COMMON NORMALS: speech normal SPEECH: Yes normal speech Skin: COMMON NORMALS: no rashes or lesions noted GENERAL SKIN EXAM: no rashes or lesions noted Course Vital Signs: Vital signs: Vital Signs Temperature 98.1 F 04/20/24 22:00 Pulse Rate 79 04/21/24 00:57 Respiratory Rate 16 04/21/24 00:57 Blood Pressure 116/84 04/21/24 00:57 Pulse Oximetry 92 04/21/24 00:57 Oxygen Delivery Me thod Room Air 04/20/24 22:00 MDM - Back Pain/Injury Medical Decision Making Pain is nonreproducible. Vitals are good. She is afebrile. CT does not reveal a cause for this procedure of her upper back pain. She is nontachycardic, nonhypoxic. She is relieved. Should be allowed discharge. She knows to return for any worsening symptoms. Labs Radiology Impressions Chest CT 04/20/24 22:18 IMPRESSION: 1. No acute cardiopulmonary disease. 2. Old granulomatous disease. All radiology interpretation(s) finalized by discharge Discharge Plan Discharge Patient Disposition: Home Clinical Impression: Thoracic back pain Chest pain Qualifiers: Chest pain type: precordial pain Qualified Code(s): R07.2 - Precordial pain Condition: Stable Prescriptions: No Action methimazole 5 mg tablet 2.5 mg PO DAILY fluticasone propion-salmeterol [Advair Diskus] 250-50 mcg/dose blister with device 1 inh inhalation BID Systane Balance 0.6 % drops 1 drp ophthalmic (eye) QID PRN nystatin 100,000 unit/mL suspension 400,000 unit PO QID 10 Days Qty: 160 0RF Rx Instructions: swish and spit gabapentin 100 mg capsule 100 mg PO DAILY aspirin [Adult Low Dose Aspirin] 81 mg tablet,delayed release (DR/EC) 81 mg PO DAILY losartan 50 mg tablet See Rx Instructions .ROUTE .COMPLEX Qty: 180 2RF Dose Instruction: Take 1 tablet by mouth twice daily Rx Instructions: Take 1 tablet by mouth twice daily (DME) Hinged Knee Brace See Rx Instructions .Route .MEDSUPPLY Qty: 1 0RF Rx Instructions: As directed amoxicillin-pot clavulanate 875-125 mg tablet 1 tab PO BID 10 Days Qty: 20 0RF methylprednisolone [Medrol (Eh)] 4 mg tablets,dose pack See Rx Instructions PO PER PKG DIR Qty: 21 0RF Rx Instructions: PO PER PKG DIR diltiazem HCl 120 mg capsule,extended release 24hr 120 mg PO BID Qty: 180 1RF hydrochlorothiazide 25 mg tablet 25 mg PO DAILY Qty: 90 1RF Vitamin D3 125 mcg (5,000 unit) Tablet 125 mcg PO QAM levalbuterol tartrate 45 mcg/actuation HFA aerosol inhaler 1 puff INHALATION Q4H PRN (Reason: Wheezing) Vitamin C 1,000 mg tablet 1,000 mg PO DAILY meclizine 25 mg tablet 25 mg PO QID PRN (Reason: dizziness) Qty: 20 0RF ibuprofen 800 mg tablet 800 mg PO Q8H PRN (Reason: pain) Qty: 20 0RF Discharge Orders: Discharge ED (Routine); Ordered 04/21/24 Ordered By: Dillon Steiner Referrals: Oksana Shelley MD [Primary Care Provider] - Patient Instructions: Back Pain (ED), Opioid Safety, Pain Management Activity Restrictions/Additional Instructions: Return for worsening pain, fever, cough, shortness of breath, vomiting, any other concerning symptoms. Coding Level of Care Code ED Authorization Manager for Jennifer Torrez
[2024-04-20 23:30] VITALS: PULSE 77; O2SAT 94
[2024-04-20 23:45] VITALS: O2SAT 94
[2024-04-21] VITALS: BP 119/87; PULSE 75; O2SAT 92
[2024-04-21 00:15] VITALS: O2SAT 92
[2024-04-21 00:30] VITALS: PULSE 86; O2SAT 93
[2024-04-21 00:36] VITALS: PULSE 83; O2SAT 93
[2024-04-21] MEDS: ketorolac 30 mg/mL INJ IVP (00:36)
[2024-04-21 00:45] VITALS: BP 127/92; O2SAT 93
[2024-04-21 00:57] VITALS: BP 116/84; PULSE 79; RESP 16; O2SAT 92
== END 2024-04-21 01:04 | disposition home or self-care (01) ==
PROVIDERS: Emergency Provider Emergency Medicine; PCP Family Medicine
DX: M54.6 Pain in thoracic spine (principal); R07.2 Precordial pain; I10 Essential (primary) hypertension
CPT/HCPCS: 71260; 96374; 99285; J1885

== ENCOUNTER 2024-06-18 23:51 | Emergency (ER) | payer OTHER, SELFPAY ==
[2024-06-19 00:01] VITALS: PULSE 100; RESP 18; TEMP 37.1; O2SAT 97; BMI 33.3
--- NOTE | 2024-06-19 00:23 | W.ED.EYEPROB ---
HPI - Eye Problem General: Chief complaint: Eye Problems Stated complaint: Eye Lids Bleeding From Surgery Time Seen by Provider: 06/19/24 00:10 History of Present Illness: 43-year-old female presents the emergency room with bleeding postsurgically after she had an eyelid procedure done earlier today with Dr. Kaiser. She said the wrist did stop bleeding but she is continue to have leading it will scab and 1 small spot on her left eye. Related Data Home Medications ?Medication ?Instructions ?Recorded ?Confirmed cholecalciferol (vitamin D3) 125 125 mcg PO QAM 01/11/21 04/25/24 mcg (5,000 unit) tablet (Vitamin D3) levalbuterol tartrate 45 1 puff inhalation Q4H PRN Wheezing 01/11/21 04/25/24 mcg/actuation aerosol inhaler methimazole 5 mg tablet 2.5 mg PO DAILY 03/09/22 04/25/24 fluticasone 250 mcg-salmeterol 50 1 inh inhalation BID 05/27/22 04/25/24 mcg/dose blistr powdr for inhalation (Advair Diskus) ascorbic acid (vitamin C) 1,000 mg 1,000 mg PO DAILY 06/20/22 04/25/24 tablet (Vitamin C) propylene glycol 0.6 % eye drops 1 drp ophthalmic (eye) QID PRN 06/20/22 04/25/24 (Systane Balance) gabapentin 100 mg capsule 100 mg PO DAILY 11/25/22 04/25/24 aspirin 81 mg tablet,delayed 81 mg PO DAILY 06/09/23 04/25/24 release (Adult Low Dose Aspirin) Previous Rx's ?Medication ?Instructions ?Recorded diltiazem HCl 120 mg 120 mg PO BID #180 caps 04/22/22 capsule,extended release 24 hr hydrochlorothiazide 25 mg tablet 25 mg PO DAILY #90 tabs 06/20/22 meclizine 25 mg tablet 25 mg PO QID PRN dizziness #20 tabs 09/02/22 ibuprofen 800 mg tablet 800 mg PO Q8H PRN pain #20 tabs 12/28/22 Hinged Knee Brace #1 ea 01/11/23 losartan 50 mg tablet See Rx Instructions .Route 06/09/23 .COMPLEX #180 tabs nystatin 100,000 unit/mL oral 400,000 unit (4 mL) PO QID 10 days 08/12/23 suspension #160 mL methylprednisolone 4 mg tablets in See Rx Instructions PO PER PKG DIR 01/30/24 a dose pack (Medrol (Eh)) #21 ea amoxicillin 875 mg-potassium 1 tab PO BID #14 tabs 04/25/24 clavulanate 125 mg tablet Allergies Allergy/AdvReac Type Severity Reaction Status Date / Time acetaminophen (From [place]) Allergy ADR-Itching Verified 06/19/24 00:03 azithromycin Allergy ADR-Vomitin Verified 06/19/24 00:03 g clindamycin Allergy ADR-Vomitin Verified 06/19/24 00:03 g hydrocodone (From [place]) Allergy ADR-Itching Verified 06/19/24 00:03 narcotics Allergy ADR-Itching Uncoded 04/20/24 22:03 Review of Systems Narrative: Constitutional symptoms: Negative except as documented in HPI. Skin symptoms: Negative except as documented in HPI. Eye symptoms: Negative except as documented in HPI. ENMT symptoms: Negative except as documented in HPI. Respiratory symptoms: Negative except as documented in HPI. Cardiovascular symptoms: Negative except as documented in HPI. Gastrointestinal symptoms: Negative except as documented in HPI. Genitourinary symptoms: Negative except as documented in HPI. Musculoskeletal symptoms: Negative except as documented in HPI. Neurologic symptoms: Negative except as documented in HPI. Psychiatric symptoms: Negative except as documented in HPI. Endocrine symptoms: Negative except as documented in HPI. PFSH ED PFSH: Medical History Hyperthyroidism Tobacco dependency Asthma History of hyperthyroidism Smoking Hypertension Migraine headache Hypothyroidism History of Graves' disease Surgical History H/O laparoscopy (~2010) S/P endometrial ablation (03/27/10) H/O section x 3. Family History Mother Hypertension Other CAD (coronary artery disease) Diabetes Social History Smoking and tobacco/nicotine status: current every day tobacco/nicotine user cigarettes Packs smoked per day: 1 Alcohol intake: never Substance/Drug Use: never Female Reproductive History: Spontaneous abortions: No Physical Exam Narrative: EXAM NARRATIVE: General: Alert, no acute distress. Skin: warm and dry Head: Normocephalic Neck: Trachea midline Eye: Extraocular movements are intact. Bilateral incisions appear clean dry and intact. There is a small area that is oozing blood over the left eye about midway down the incision. Ears, nose, mouth and throat: Oral mucosa moist Respiratory: Respirations are non-labored Musculoskeletal: Normal ROM Neurological: Alert and oriented, No focal neurological deficit observed. Psychiatric: Cooperative, appropriate mood & affect. Course Vital Signs: Vital signs: Vital Signs Temperature 98.7 F 06/19/24 00:01 Pulse Rate 100 06/19/24 00:01 Respiratory Rate 18 06/19/24 00:01 Pulse Oximetry 97 06/19/24 00:01 Oxygen Delivery Me thod Room Air 06/19/24 00:01 MDM - Eye Problem Medical Decision Making TXA and pressure were applied. Bleeding has resolved. Assessment and plan: Postop bleeding - Discharged home - Discussed plan with patient. Answered any questions. - Evaluation and treatment of this problem were appropriate in the emergency setting. No radiology studies performed this visit Discharge Plan Discharge Patient Disposition: Home Clinical Impression: Post-op bleeding Condition: Stable Prescriptions: No Action methimazole 5 mg tablet 2.5 mg PO DAILY fluticasone propion-salmeterol [Advair Diskus] 250-50 mcg/dose blister with device 1 inh inhalation BID Systane Balance 0.6 % drops 1 drp ophthalmic (eye) QID PRN nystatin 100,000 unit/mL suspension 400,000 unit PO QID 10 Days Qty: 160 0RF Rx Instructions: swish and spit gabapentin 100 mg capsule 100 mg PO DAILY aspirin [Adult Low Dose Aspirin] 81 mg tablet,delayed release (DR/EC) 81 mg PO DAILY losartan 50 mg tablet See Rx Instructions .ROUTE .COMPLEX Qty: 180 2RF Dose Instruction: Take 1 tablet by mouth twice daily Rx Instructions: Take 1 tablet by mouth twice daily (DME) Hinged Knee Brace See Rx Instructions .Route .MEDSUPPLY Qty: 1 0RF Rx Instructions: As directed methylprednisolone [Medrol (Eh)] 4 mg tablets,dose pack See Rx Instructions PO PER PKG DIR Qty: 21 0RF Rx Instructions: PO PER PKG DIR amoxicillin-pot clavulanate 875-125 mg tablet 1 tab PO BID Qty: 14 0RF diltiazem HCl 120 mg capsule,extended release 24hr 120 mg PO BID Qty: 180 1RF hydrochlorothiazide 25 mg tablet 25 mg PO DAILY Qty: 90 1RF Vitamin D3 125 mcg (5,000 unit) Tablet 125 mcg PO QAM levalbuterol tartrate 45 mcg/actuation HFA aerosol inhaler 1 puff INHALATION Q4H PRN (Reason: Wheezing) Vitamin C 1,000 mg tablet 1,000 mg PO DAILY meclizine 25 mg tablet 25 mg PO QID PRN (Reason: dizziness) Qty: 20 0RF ibuprofen 800 mg tablet 800 mg PO Q8H PRN (Reason: pain) Qty: 20 0RF Discharge Orders: Discharge ED (Routine); Ordered 06/19/24 Ordered By: Allison Allen Referrals: Oksana Shelley MD [Primary Care Provider] - Discharge Diet: Usual diet Discharge Activity: Limit activity as instructed Patient Instructions: Opioid Safety, Pain Management Activity Restrictions/Additional Instructions: Thank you for choosing [facility] for your healthcare needs today. Please realize this is an emergency room and that we are providing you with a medical screening exam and this may not be complete and all inclusive of all the testing and or work up that you may need to determine your ailment or severity of your illness. You have been screened and evaluated and felt safe for discharge. Health conditions do change or evolve sometimes and as such it is important that you follow up with your Primary Doctor to be re checked, 3-5 days is a general good time frame for follow up. You are always welcome to return to the ED for re assessment if your symptoms are worsening or you have new concerns Print Language: Swedish Coding Level of Care Code ED Film Projector Operator for Jennifer Torrez
[2024-06-19] MEDS: tranexamic acid 1,000 mg/10mL SDV 1000 MG XX (01:08)
[2024-06-19 02:02] VITALS: BP 147/80; PULSE 89; RESP 17; O2SAT 96
== END 2024-06-19 02:02 | disposition home or self-care (01) ==
PROVIDERS: Emergency Provider Emergency Medicine; PCP Family Medicine
DX: L76.22 Postprocedural hemorrhage of skin and subcutaneous tissue following other procedure (principal); Z79.82 Long term (current) use of aspirin; F17.210 Nicotine dependence, cigarettes, uncomplicated; I10 Essential (primary) hypertension
CPT/HCPCS: 99284; J9999

== ENCOUNTER → 2024-09-02 18:46 | Outpatient (BNVA) | payer OTHER, SELFPAY | PROVIDERS: PCP Family Medicine; Visit Provider Family Medicine | DX: R39.9 Unspecified symptoms and signs involving the genitourinary system (principal) | CPT/HCPCS: 81000 ==

== ENCOUNTER 2024-09-10 05:27 | Emergency (ER) | payer OTHER, SELFPAY ==
[2024-09-10 05:36] VITALS: BP 135/89; PULSE 89; RESP 18; TEMP 36.8; O2SAT 99; BMI 33.9
--- NOTE | 2024-09-10 05:38 | W.ED.FEMALGU ---
Documented by User: Allison Allen MD 09/10/24 05:41 HPI - Female Genitourinary General: Chief complaint: Urogenital-Female Stated complaint: Hurts when She Pee's Time Seen by Provider: 09/10/24 05:35 History of Present Illness: 43-year-old female presents the emergency room with dysuria. She says she just completed Bactrim 5 days. And about the day after she started having pain with urination and some blood in her urine. No nausea or vomiting. No fevers. Related Data Home Medications ?Medication ?Instructions ?Recorded ?Confirmed cholecalciferol (vitamin D3) 125 125 mcg PO QAM 01/11/21 09/10/24 mcg (5,000 unit) tablet (Vitamin D3) levalbuterol tartrate 45 1 puff inhalation Q4H PRN Wheezing 01/11/21 09/10/24 mcg/actuation aerosol inhaler methimazole 5 mg tablet 2.5 mg PO QPM 03/09/22 09/10/24 fluticasone 250 mcg-salmeterol 50 1 inh inhalation BID 05/27/22 09/10/24 mcg/dose blistr powdr for inhalation (Advair Diskus) ascorbic acid (vitamin C) 1,000 mg 1,000 mg PO QPM 06/20/22 09/10/24 tablet (Vitamin C) propylene glycol 0.6 % eye drops 1 drp ophthalmic (eye) QID PRN Dry 06/20/22 09/10/24 (Systane Balance) Eyes gabapentin 100 mg capsule 100 mg PO QPM 11/25/22 09/10/24 aspirin 81 mg tablet,delayed 81 mg PO DAILY 06/09/23 09/10/24 release (Adult Low Dose Aspirin) cyanocobalamin (vitamin B-12) 1,000 mcg PO QAM 09/10/24 09/10/24 1,000 mcg tablet (Vitamin B-12) hydrochlorothiazide 25 mg tablet 25 mg PO QAM 09/10/24 09/10/24 losartan 50 mg tablet 50 mg PO BID 09/10/24 09/10/24 magnesium oxide 400 mg PO QPM 09/10/24 09/10/24 pantoprazole 40 mg tablet,delayed 40 mg PO QAM 09/10/24 09/10/24 release propranolol 10 mg tablet 10 mg PO TID PRN heart palpitations 09/10/24 09/10/24 tizanidine 4 mg tablet 4 mg PO Q8H PRN Muscle Spasm 09/10/24 09/10/24 Previous Rx's ?Medication ?Instructions ?Recorded diltiazem HCl 120 mg 120 mg PO BID #180 caps 04/22/22 capsule,extended release 24 hr meclizine 25 mg tablet 25 mg PO QID PRN dizziness #20 tabs 09/02/22 Hinged Knee Brace #1 ea 01/11/23 phenazopyridine 200 mg tablet 200 mg PO Q8H 6 doses #6 tabs 09/10/24 (Pyridium) sulfamethoxazole 800 1 tab PO DAILY 7 days #14 tabs 09/10/24 mg-trimethoprim 160 mg tablet (Bactrim DS) Allergies Allergy/AdvReac Type Severity Reaction Status Date / Time acetaminophen (From [facility]) Allergy ADR-Itching Verified 09/10/24 05:41 azithromycin Allergy ADR-Vomitin Verified 09/10/24 05:41 g clindamycin Allergy ADR-Vomitin Verified 09/10/24 05:41 g hydrocodone (From [facility]) Allergy ADR-Itching Verified 09/10/24 05:41 narcotics Allergy ADR-Itching Uncoded 09/10/24 05:41 Review of Systems Narrative: Constitutional symptoms: Negative except as documented in HPI. Skin symptoms: Negative except as documented in HPI. Eye symptoms: Negative except as documented in HPI. ENMT symptoms: Negative except as documented in HPI. Respiratory symptoms: Negative except as documented in HPI. Cardiovascular symptoms: Negative except as documented in HPI. Gastrointestinal symptoms: Negative except as documented in HPI. Genitourinary symptoms: Negative except as documented in HPI. Musculoskeletal symptoms: Negative except as documented in HPI. Neurologic symptoms: Negative except as documented in HPI. Psychiatric symptoms: Negative except as documented in HPI. Endocrine symptoms: Negative except as documented in HPI. PFSH ED PFSH: Medical History Hyperthyroidism Tobacco dependency Asthma History of hyperthyroidism Smoking Hypertension Migraine headache Hypothyroidism History of Graves' disease Surgical History H/O laparoscopy (~2010) S/P endometrial ablation (03/27/10) H/O section x 3. Family History Mother Hypertension Other CAD (coronary artery disease) Diabetes Social History Smoking and tobacco/nicotine status: current every day tobacco/nicotine user cigarettes Packs smoked per day: 1 Alcohol intake: never Substance/Drug Use: never Female Reproductive History: Spontaneous abortions: No Physical Exam Narrative: EXAM NARRATIVE: General: Alert, no acute distress. Skin: warm and dry Head: Normocephalic Neck: Trachea midline Eye: Extraocular movements are intact. Ears, nose, mouth and throat: Oral mucosa moist Respiratory: Respirations are non-labored Musculoskeletal: Normal ROM Gastrointestinal: Abdomen does not appear distended Neurological: Alert and oriented, No focal neurological deficit observed. Psychiatric: Cooperative, appropriate mood & affect. Course Vital Signs: Vital signs: Vital Signs Temperature 98.2 F 09/10/24 05:36 Pulse Rate 80 09/10/24 09:25 Respiratory Rate 18 09/10/24 05:36 Blood Pressure 113/73 09/10/24 09:25 Pulse Oximetry 96 09/10/24 09:25 Oxygen Delivery Me thod Room Air 09/10/24 05:36 MDM - Female Medical Decision Making Medical decision making: Differential diagnosis including but not limited to and based on the above HPI, review of systems and physical exam: Differential diagnosis for patient with dysuria / lower abdominal pain: Ureterolithiasis. Urinary tract infection. Cystitis. With the possibility of sepsis, pyelonephritis and renal failure. Orders placed to evaluate differential diagnosis based on the above differential, HPI and physical exam Patient care transitioned to Dr. Chin at shift change. Lab Data 09/10/24 05:45 09/10/24 05:45 Radiology Impressions Abdomen/Pelvis CT 09/10/24 07:46 IMPRESSION: 1. No hydronephrosis in either kidney. 2. No obstructing renal or ureteral calculi. 3. Small LEFT adrenal adenoma. 4. Mild hepatomegaly. 5. Colonic diverticulosis. No evidence of acute diverticulitis. Laboratory Results WBC 9.34 10^3/uL (3.29-11.43) 09/10/24 05:45 RBC 4.81 10^6/uL (3.85-5.65) 09/10/24 05:45 Hgb 14.00 g/dL (11.27-16.99) 09/10/24 05:45 Hct 42.3 % (36-47) 09/10/24 05:45 MCV 87.9 fl (85-98) 09/10/24 05:45 MCH 29.1 pg (27-33) 09/10/24 05:45 MCHC 33.1 g/dL (30-55) 09/10/24 05:45 RDW 13.4 % (12.1-15.1) 09/10/24 05:45 Plt Count 265 10^3/cmm (157-399) 09/10/24 05:45 MPV 9.6 fL (7.4-10.4) 09/10/24 05:45 Neut % (Auto) 61.7 % 09/10/24 05:45 Lymph % (Auto) 25.2 % 09/10/24 05:45 [place] % (Auto) 8.2 % 09/10/24 05:45 Eos % (Auto) 3.5 % 09/10/24 05:45 Baso % (Auto) 1.1 % 09/10/24 05:45 Neut # (Auto) 5.76 10^3/uL (1.8-7.7) 09/10/24 05:45 Lymph # (Auto) 2.4 10^3/uL (0.8-4.8) 09/10/24 05:45 [place] # (Auto) 0.8 10^3/uL (0.2-0.9) 09/10/24 05:45 Eos # (Auto) 0.3 10^3/uL (0.0-0.8) 09/10/24 05:45 Baso # (Auto) 0.1 10^3/uL (0.0-0.1) 09/10/24 05:45 Nucleated RBC % (auto) 0 % 09/10/24 05:45 Nucleated RBCs # 0.0 /100WBC 09/10/24 05:45 Sodium 141 mmol/L (136-145) 09/10/24 05:45 Potassium 3.8 mmol/L (3.5-5.1) 09/10/24 05:45 Chloride 104 mmol/L (98-107) 09/10/24 05:45 Carbon Dioxide 26 mmol/L (22-29) 09/10/24 05:45 Anion Gap 14.8 (5-19) 09/10/24 05:45 BUN 9 mg/dL (6-20) 09/10/24 05:45 Creatinine 0.6 mg/dL (0.5-0.9) 09/10/24 05:45 GFR Calculation 108.6 mL/min (90-130) 09/10/24 05:45 Glucose 117 mg/dL (65-115) H 09/10/24 05:45 Calculated Osmolality 292 mOsm/kg (285-295) 09/10/24 05:45 Calcium 9.0 mg/dL (8.5-10.5) 09/10/24 05:45 Total Bilirubin 0.3 mg/dL (0.15-1.2) 09/10/24 05:45 AST 11 U/L (0-32) 09/10/24 05:45 ALT 11 U/L (0-33) 09/10/24 05:45 Alkaline Phosphatase 77 U/L (35-105) 09/10/24 05:45 Total Protein 6.9 g/dL (6.6-8.7) 09/10/24 05:45 Albumin 4.1 g/dL (3.5-5.2) 09/10/24 05:45 Globulin 2.8 g/dL (1.3-4.6) 09/10/24 05:45 Urine Color Other (Yellow) A 09/10/24 05:37 Urine Appearance Cloudy (CLEAR) A 09/10/24 05:37 Urine pH TNP 09/10/24 05:37 Ur Specific [place] TNP 09/10/24 05:37 Urine Protein TNP 09/10/24 05:37 Urine Glucose (UA) TNP 09/10/24 05:37 Urine Ketones TNP 09/10/24 05:37 Urine Blood TNP 09/10/24 05:37 Urine Nitrate TNP 09/10/24 05:37 Urine Bilirubin TNP 09/10/24 05:37 Urine Urobilinogen TNP 09/10/24 05:37 Ur Leukocyte Esterase TNP 09/10/24 05:37 Urine RBC >100 /hpf (0-2) H 09/10/24 05:37 Urine WBC 10-15 /hpf (0-5) H 09/10/24 05:37 Ur Squamous Epith Cells 0-4 /hpf (0-5) H 09/10/24 05:37 Amorphous Sediment Not Reportable 09/10/24 05:37 Urine Bacteria 1+ /hpf (NONE) H 09/10/24 05:37 Urine Mucus 1+ /hpf 09/10/24 05:37 Discharge Plan Discharge Patient Disposition: Home Clinical Impression: Cystitis Condition: Stable Prescriptions: New sulfamethoxazole-trimethoprim [Bactrim DS] 800-160 mg tablet 1 tab PO DAILY 7 Days Qty: 14 0RF phenazopyridine [Pyridium] 200 mg tablet 200 mg PO Q8H Qty: 6 0RF No Action methimazole 5 mg tablet 2.5 mg PO QPM fluticasone propion-salmeterol [Advair Diskus] 250-50 mcg/dose blister with device 1 inh inhalation BID Systane Balance 0.6 % drops 1 drp ophthalmic (eye) QID PRN (Reason: Dry Eyes) gabapentin 100 mg capsule 100 mg PO QPM aspirin [Adult Low Dose Aspirin] 81 mg tablet,delayed release (DR/EC) 81 mg PO DAILY (DME) Hinged Knee Brace See Rx Instructions .Route .MEDSUPPLY Qty: 1 0RF Rx Instructions: As directed diltiazem HCl 120 mg capsule,extended release 24hr 120 mg PO BID Qty: 180 1RF cholecalciferol (vitamin D3) [Vitamin D3] 125 mcg (5,000 unit) Tablet 125 mcg PO QAM levalbuterol tartrate 45 mcg/actuation HFA aerosol inhaler 1 puff INHALATION Q4H PRN (Reason: Wheezing) Vitamin C 1,000 mg tablet 1,000 mg PO QPM tizanidine 4 mg tablet 4 mg PO Q8H PRN (Reason: Muscle Spasm) cyanocobalamin (vitamin B-12) [Vitamin B-12] 1,000 mcg Tablet 1,000 mcg PO QAM propranolol 10 mg tablet 10 mg PO TID PRN (Reason: heart palpitations) pantoprazole 40 mg tablet,delayed release (DR/EC) 40 mg PO QAM losartan 50 mg tablet 50 mg PO BID hydrochlorothiazide 25 mg tablet 25 mg PO QAM magnesium oxide 400 mg magnesium tablet 400 mg PO QPM meclizine 25 mg tablet 25 mg PO QID PRN (Reason: dizziness) Qty: 20 0RF Discharge Orders: Discharge ED (Routine); Ordered 09/10/24 Ordered By: Angel Luis Chin Discharge Diet: Usual diet Discharge Activity: Increase activity as tolerated Patient Instructions: Urinary Tract Infection in Women (ED), Opioid Safety, Pain Management Activity Restrictions/Additional Instructions: Thank you for choosing [facility] for your healthcare needs today. It is very important that you follow up as instructed or that you return to the Emergency Department should you have concerns or if your condition changes or worsens in any way. You were found to have a bladder infection in the emergency room. CT was done and there is no sign of kidney stone with or abscess. You are given initial dose of IV antibiotics in the emergency room discharged home with oral antibiotic 1 pill twice a day for 7 days you are also given Pyridium to help with bladder spasms and discomfort take this medicine 1 pill 3 times a day it will discolor the urine and orange is red to color. Print Language: [place] Sign Out Sign Out Data: Patient Sign Out occurred on 09/10/24 at 06:05. Patient's care was discussed, and care was transferred from Allison Allen MD to Angel Luis Chin DO. Coding Level of Care Code ED Avionics Supervisor for Chg Fwd Documented by User: Angel Luis Chin DO 09/10/24 14:58 HPI - Female Genitourinary General: Chief complaint: Urogenital-Female Stated complaint: Hurts when She Pee's Time Seen by Provider: 09/10/24 05:35 Related Data Home Medications ?Medication ?Instructions ?Recorded ?Confirmed cholecalciferol (vitamin D3) 125 125 mcg PO QAM 01/11/21 09/10/24 mcg (5,000 unit) tablet (Vitamin D3) levalbuterol tartrate 45 1 puff inhalation Q4H PRN Wheezing 01/11/21 09/10/24 mcg/actuation aerosol inhaler methimazole 5 mg tablet 2.5 mg PO QPM 03/09/22 09/10/24 fluticasone 250 mcg-salmeterol 50 1 inh inhalation BID 05/27/22 09/10/24 mcg/dose blistr powdr for inhalation (Advair Diskus) ascorbic acid (vitamin C) 1,000 mg 1,000 mg PO QPM 06/20/22 09/10/24 tablet (Vitamin C) propylene glycol 0.6 % eye drops 1 drp ophthalmic (eye) QID PRN Dry 06/20/22 09/10/24 (Systane Balance) Eyes gabapentin 100 mg capsule 100 mg PO QPM 11/25/22 09/10/24 aspirin 81 mg tablet,delayed 81 mg PO DAILY 06/09/23 09/10/24 release (Adult Low Dose Aspirin) cyanocobalamin (vitamin B-12) 1,000 mcg PO QAM 09/10/24 09/10/24 1,000 mcg tablet (Vitamin B-12) hydrochlorothiazide 25 mg tablet 25 mg PO QAM 09/10/24 09/10/24 losartan 50 mg tablet 50 mg PO BID 09/10/24 09/10/24 magnesium oxide 400 mg PO QPM 09/10/24 09/10/24 pantoprazole 40 mg tablet,delayed 40 mg PO QAM 09/10/24 09/10/24 release propranolol 10 mg tablet 10 mg PO TID PRN heart palpitations 09/10/24 09/10/24 tizanidine 4 mg tablet 4 mg PO Q8H PRN Muscle Spasm 09/10/24 09/10/24 Previous Rx's ?Medication ?Instructions ?Recorded diltiazem HCl 120 mg 120 mg PO BID #180 caps 04/22/22 capsule,extended release 24 hr meclizine 25 mg tablet 25 mg PO QID PRN dizziness #20 tabs 09/02/22 Hinged Knee Brace #1 ea 01/11/23 phenazopyridine 200 mg tablet 200 mg PO Q8H 6 doses #6 tabs 09/10/24 (Pyridium) sulfamethoxazole 800 1 tab PO DAILY 7 days #14 tabs 09/10/24 mg-trimethoprim 160 mg tablet (Bactrim DS) Allergies Allergy/AdvReac Type Severity Reaction Status Date / Time acetaminophen (From [facility]) Allergy ADR-Itching Verified 09/10/24 05:41 azithromycin Allergy ADR-Vomitin Verified 09/10/24 05:41 g clindamycin Allergy ADR-Vomitin Verified 09/10/24 05:41 g hydrocodone (From [facility]) Allergy ADR-Itching Verified 09/10/24 05:41 narcotics Allergy ADR-Itching Uncoded 09/10/24 05:41 PFSH ED PFSH: Medical History Hyperthyroidism Tobacco dependency Asthma History of hyperthyroidism Smoking Hypertension Migraine headache Hypothyroidism History of Graves' disease Surgical History H/O laparoscopy (~2010) S/P endometrial ablation (03/27/10) H/O section x 3. Family History Mother Hypertension Other CAD (coronary artery disease) Diabetes Social History Smoking and tobacco/nicotine status: current every day tobacco/nicotine user cigarettes Packs smoked per day: 1 Alcohol intake: never Substance/Drug Use: never Course Vital Signs: Vital signs: Vital Signs Temperature 98.2 F 09/10/24 05:36 Pulse Rate 80 09/10/24 09:25 Respiratory Rate 18 09/10/24 05:36 Blood Pressure 113/73 09/10/24 09:25 Pulse Oximetry 96 09/10/24 09:25 Oxygen Delivery Me thod Room Air 09/10/24 05:36 MDM - Female Medical Decision Making Medical decision making: Differential diagnosis including but not limited to and based on the above HPI, review of systems and physical exam: Differential diagnosis for patient with dysuria / lower abdominal pain: Ureterolithiasis. Urinary tract infection. Cystitis. With the possibility of sepsis, pyelonephritis and renal failure. Orders placed to evaluate differential diagnosis based on the above differential, HPI and physical exam Patient care transitioned to Dr. Chin at shift change. Care assumed at change of shift white count normal patient does have uncontrolled blood cells overweight CT renal system did not show any obstruction or nephrolithiasis discharged home with Pyridium as well as oral antibiotics given a dose of Rocephin here follow-up with primary care if not improving Lab Data 09/10/24 05:45 09/10/24 05:45 Radiology Impressions Abdomen/Pelvis CT 09/10/24 07:46 IMPRESSION: 1. No hydronephrosis in either kidney. 2. No obstructing renal or ureteral calculi. 3. Small LEFT adrenal adenoma. 4. Mild hepatomegaly. 5. Colonic diverticulosis. No evidence of acute diverticulitis. Laboratory Results WBC 9.34 10^3/uL (3.29-11.43) 09/10/24 05:45 RBC 4.81 10^6/uL (3.85-5.65) 09/10/24 05:45 Hgb 14.00 g/dL (11.27-16.99) 09/10/24 05:45 Hct 42.3 % (36-47) 09/10/24 05:45 MCV 87.9 fl (85-98) 09/10/24 05:45 MCH 29.1 pg (27-33) 09/10/24 05:45 MCHC 33.1 g/dL (30-55) 09/10/24 05:45 RDW 13.4 % (12.1-15.1) 09/10/24 05:45 Plt Count 265 10^3/cmm (157-399) 09/10/24 05:45 MPV 9.6 fL (7.4-10.4) 09/10/24 05:45 Neut % (Auto) 61.7 % 09/10/24 05:45 Lymph % (Auto) 25.2 % 09/10/24 05:45 [place] % (Auto) 8.2 % 09/10/24 05:45 Eos % (Auto) 3.5 % 09/10/24 05:45 Baso % (Auto) 1.1 % 09/10/24 05:45 Neut # (Auto) 5.76 10^3/uL (1.8-7.7) 09/10/24 05:45 Lymph # (Auto) 2.4 10^3/uL (0.8-4.8) 09/10/24 05:45 [place] # (Auto) 0.8 10^3/uL (0.2-0.9) 09/10/24 05:45 Eos # (Auto) 0.3 10^3/uL (0.0-0.8) 09/10/24 05:45 Baso # (Auto) 0.1 10^3/uL (0.0-0.1) 09/10/24 05:45 Nucleated RBC % (auto) 0 % 09/10/24 05:45 Nucleated RBCs # 0.0 /100WBC 09/10/24 05:45 Sodium 141 mmol/L (136-145) 09/10/24 05:45 Potassium 3.8 mmol/L (3.5-5.1) 09/10/24 05:45 Chloride 104 mmol/L (98-107) 09/10/24 05:45 Carbon Dioxide 26 mmol/L (22-29) 09/10/24 05:45 Anion Gap 14.8 (5-19) 09/10/24 05:45 BUN 9 mg/dL (6-20) 09/10/24 05:45 Creatinine 0.6 mg/dL (0.5-0.9) 09/10/24 05:45 GFR Calculation 108.6 mL/min (90-130) 09/10/24 05:45 Glucose 117 mg/dL (65-115) H 09/10/24 05:45 Calculated Osmolality 292 mOsm/kg (285-295) 09/10/24 05:45 Calcium 9.0 mg/dL (8.5-10.5) 09/10/24 05:45 Total Bilirubin 0.3 mg/dL (0.15-1.2) 09/10/24 05:45 AST 11 U/L (0-32) 09/10/24 05:45 ALT 11 U/L (0-33) 09/10/24 05:45 Alkaline Phosphatase 77 U/L (35-105) 09/10/24 05:45 Total Protein 6.9 g/dL (6.6-8.7) 09/10/24 05:45 Albumin 4.1 g/dL (3.5-5.2) 09/10/24 05:45 Globulin 2.8 g/dL (1.3-4.6) 09/10/24 05:45 Urine Color Other (Yellow) A 09/10/24 05:37 Urine Appearance Cloudy (CLEAR) A 09/10/24 05:37 Urine pH TNP 09/10/24 05:37 Ur Specific [place] TNP 09/10/24 05:37 Urine Protein TNP 09/10/24 05:37 Urine Glucose (UA) TNP 09/10/24 05:37 Urine Ketones TNP 09/10/24 05:37 Urine Blood TNP 09/10/24 05:37 Urine Nitrate TNP 09/10/24 05:37 Urine Bilirubin TNP 09/10/24 05:37 Urine Urobilinogen TNP 09/10/24 05:37 Ur Leukocyte Esterase TNP 09/10/24 05:37 Urine RBC >100 /hpf (0-2) H 09/10/24 05:37 Urine WBC 10-15 /hpf (0-5) H 09/10/24 05:37 Ur Squamous Epith Cells 0-4 /hpf (0-5) H 09/10/24 05:37 Amorphous Sediment Not Reportable 09/10/24 05:37 Urine Bacteria 1+ /hpf (NONE) H 09/10/24 05:37 Urine Mucus 1+ /hpf 09/10/24 05:37 All radiology interpretation(s) finalized by discharge Discharge Plan Discharge Patient Disposition: Home Clinical Impression: Cystitis Condition: Stable Prescriptions: New sulfamethoxazole-trimethoprim [Bactrim DS] 800-160 mg tablet 1 tab PO DAILY 7 Days Qty: 14 0RF phenazopyridine [Pyridium] 200 mg tablet 200 mg PO Q8H Qty: 6 0RF No Action methimazole 5 mg tablet 2.5 mg PO QPM fluticasone propion-salmeterol [Advair Diskus] 250-50 mcg/dose blister with device 1 inh inhalation BID Systane Balance 0.6 % drops 1 drp ophthalmic (eye) QID PRN (Reason: Dry Eyes) gabapentin 100 mg capsule 100 mg PO QPM aspirin [Adult Low Dose Aspirin] 81 mg tablet,delayed release (DR/EC) 81 mg PO DAILY (DME) Hinged Knee Brace See Rx Instructions .Route .MEDSUPPLY Qty: 1 0RF Rx Instructions: As directed diltiazem HCl 120 mg capsule,extended release 24hr 120 mg PO BID Qty: 180 1RF cholecalciferol (vitamin D3) [Vitamin D3] 125 mcg (5,000 unit) Tablet 125 mcg PO QAM levalbuterol tartrate 45 mcg/actuation HFA aerosol inhaler 1 puff INHALATION Q4H PRN (Reason: Wheezing) Vitamin C 1,000 mg tablet 1,000 mg PO QPM tizanidine 4 mg tablet 4 mg PO Q8H PRN (Reason: Muscle Spasm) cyanocobalamin (vitamin B-12) [Vitamin B-12] 1,000 mcg Tablet 1,000 mcg PO QAM propranolol 10 mg tablet 10 mg PO TID PRN (Reason: heart palpitations) pantoprazole 40 mg tablet,delayed release (DR/EC) 40 mg PO QAM losartan 50 mg tablet 50 mg PO BID hydrochlorothiazide 25 mg tablet 25 mg PO QAM magnesium oxide 400 mg magnesium tablet 400 mg PO QPM meclizine 25 mg tablet 25 mg PO QID PRN (Reason: dizziness) Qty: 20 0RF Discharge Orders: Discharge ED (Routine); Ordered 09/10/24 Ordered By: Angel Luis Chin Discharge Diet: Usual diet Discharge Activity: Increase activity as tolerated Patient Instructions: Urinary Tract Infection in Women (ED), Opioid Safety, Pain Management Activity Restrictions/Additional Instructions: Thank you for choosing [facility] for your healthcare needs today. It is very important that you follow up as instructed or that you return to the Emergency Department should you have concerns or if your condition changes or worsens in any way. You were found to have a bladder infection in the emergency room. CT was done and there is no sign of kidney stone with or abscess. You are given initial dose of IV antibiotics in the emergency room discharged home with oral antibiotic 1 pill twice a day for 7 days you are also given Pyridium to help with bladder spasms and discomfort take this medicine 1 pill 3 times a day it will discolor the urine and orange is red to color. Print Language: [place] Sign Out Sign Out Data: Patient Sign Out occurred on 09/10/24 at 06:05. Patient's care was discussed, and care was transferred from Allison Allen MD to Angel Luis Chin DO. Coding Level of Care Code ED Avionics Supervisor for Jennifer Torrez
[2024-09-10 05:50] LABS: Basophils # 0.1 10^3/uL (0.0-0.1); Basophils % 1.1 %; Eosinophils # 0.3 10^3/uL (0.0-0.8); Eosinophils % 3.5 %; Hematocrit 42.3 % (36-47); Lymphocytes # 2.4 10^3/uL (0.8-4.8); Lymphocytes % 25.2 %; Mean Corpuscular HGB Conc 33.1 g/dL (30-55); Mean Corpuscular Hemoglobin 29.1 pg (27-33); Mean Corpuscular Volume 87.9 fl (85-98); Mean Platelet Volume 9.6 fL (7.4-10.4); Monocytes # 0.8 10^3/uL (0.2-0.9); Monocytes % 8.2 %; Neutrophils # 5.76 10^3/uL (1.8-7.7); Neutrophils % 61.7 %; Nucleated Red Blood Cells % 0 %; Platelet Count 265 10^3/cmm (157-399); Red Blood Count 4.81 10^6/uL (3.85-5.65); Red Cell Distribution Width 13.4 % (12.1-15.1); White Blood Count 9.34 10^3/uL (3.29-11.43)
[2024-09-10 06:10] LABS: Alanine Aminotransferase 11 U/L (0-33); Albumin Level 4.1 g/dL (3.5-5.2); Alkaline Phosphatase 77 U/L (35-105); Anion Gap 14.8 (5-19); Aspartate Amino Transferase 11 U/L (0-32); Blood Urea Nitrogen 9 mg/dL (6-20); Carbon Dioxide 26 mmol/L (22-29); Chloride 104 mmol/L (98-107); Creatinine Clr Calc Pharmacy 134.5138; Globulin 2.8 g/dL (1.3-4.6); Glomerular Filtration Rate 108.6 mL/min (90-130); Glucose 117 mg/dL (65-115); Osmolality Calculated 292 mOsm/kg (285-295); Potassium 3.8 mmol/L (3.5-5.1); Sodium 141 mmol/L (136-145); Total Protein 6.9 g/dL (6.6-8.7)
[2024-09-10 06:38] VITALS: BP 135/89; PULSE 89; O2SAT 98
[2024-09-10] MEDS: ketorolac 30 mg/mL INJ IVP (07:08)
[2024-09-10 07:30] VITALS: BP 129/89; PULSE 80; O2SAT 98
[2024-09-10 07:37] LABS: Urine Appearance Cloudy (CLEAR); Urine Color Other (Yellow)
[2024-09-10 07:38] LABS: Mucus Urine 1+ /hpf; RBC Urine >100 /hpf (0-2); Squamous Epithelial Cell Urine 0-4 /hpf (0-5); UA Manual Slide Review YES; UA Slide Review UA Slide Review Perf
[2024-09-10 07:39] LABS: Add Urine Culture? Yes; Bacteria Urine 1+ /hpf
[2024-09-10 07:43] LABS: Total Bilirubin 0.3 mg/dL (0.15-1.2)
--- NOTE | 2024-09-10 07:46 | CT_ITS ---
WS: [id number] CT ABDOMEN PELVIS TECHNIQUE: Noncontrast CT of the abdomen and pelvis with coronal and sagittal reformatted images. CLINICAL INFORMATION: flank pain COMPARISON: 2019 DLP: 1020.[address] scans at [facility] use at least one of these dose optimization techniques: automated exposure control; mA and/or kV adjustment per patient size (includes targeted exams where dose is matched to clinical indication); or iterative reconstruction. FINDINGS: No hydronephrosis in either kidney. No obstructing renal or ureteral calculi. LEFT adrenal nodule likely adenoma measuring 9 mm. Mild hepatomegaly. Normal spleen. Tiny esophageal hiatal hernia. Normal gallbladder. Normal noncontrast pancreas. Normal caliber abdominal aorta. Aortic calcification. Normal sigmoid colon. Colonic diverticulosis. Lung bases are well aerated. CT/CT kidney stone [id number] IMPRESSION: 1. No hydronephrosis in either kidney. 2. No obstructing renal or ureteral calculi. 3. Small LEFT adrenal adenoma. 4. Mild hepatomegaly. 5. Colonic diverticulosis. No evidence of acute diverticulitis.
[2024-09-10 08:30] VITALS: BP 114/70; PULSE 74; O2SAT 97
[2024-09-10 09:25] VITALS: BP 113/73; PULSE 80; O2SAT 96
[2024-09-10] MEDS: cefTRIAXone 1,000 mg SDV 1000 MG IVP (09:25)
== END 2024-09-10 09:29 | disposition home or self-care (01) ==
PROVIDERS: Emergency Medicine; Emergency Provider Family Medicine
DX: N30.90 Cystitis, unspecified without hematuria (principal); Z79.82 Long term (current) use of aspirin; F17.210 Nicotine dependence, cigarettes, uncomplicated; I10 Essential (primary) hypertension
CPT/HCPCS: 74176; 80053; 81001; 85025; 87086; 96374; 96375; 99285; J0696; J1885

== ENCOUNTER 2025-01-07 16:39 | Outpatient (CLI) | payer OTHER, SELFPAY ==
--- NOTE | 2025-01-07 16:47 | XR_ITS ---
WS: [id number] XR foot LT min 3V* [id number] REASON FOR EXAM: LEFT FOOT PAIN FINDINGS: No fracture or focal bone lesion. No periosteal reaction or bone erosion. Joint spaces of the forefoot, midfoot, and the subtalar joint are intact and well preserved. Moderate anterior calcaneal enthesophyte. XR/XR foot LT min 3V* [id number] IMPRESSION: . No acute bone or joint abnormality. Calcaneal enthesophyte.
== END 2025-01-07 16:40 | disposition home or self-care (01) ==
PROVIDERS: PCP Nurse Practitioner Family; Visit Provider Nurse Practitioner Family
DX: M79.672 Pain in left foot (principal); M77.32 Calcaneal spur, left foot
CPT/HCPCS: 73630

== ENCOUNTER → 2025-03-25 11:24 | Outpatient (BNVA) | payer OTHER, SELFPAY | PROVIDERS: PCP Nurse Practitioner Family; Visit Provider Nurse Practitioner Family | DX: I10 Essential (primary) hypertension (principal) | CPT/HCPCS: 36415; 80061 ==